=== PATIENT | male | born 1945 | race Caucasian/White ===

== ENCOUNTER 2019-06-08 13:39 | Emergency (ER) | payer OTHER ==
--- OUTSIDE RECORDS SUMMARY | 2019-06-08 13:42 | XMS REPORT | Summary of Care ---
:1945 Author Organization [facility] [place] [address] Care Team Providers Name Role Phone José Pugh Primary Care Provider Reason for Referral (Routine) Status Reason Specialty Diagnoses / Referred By Referred To Procedures Contact Contact Pending Consult, Test, Physical Therapy Diagnoses Tremor, essential Sincere Segundo, and Treat [address], [address] [place] [address] Reason for Visit Reason Comments Movement Disorder Consult, Test & Treat (Routine) Status Reason Specialty Diagnoses / Referred By Referred To Procedures Contact Contact Authorization Not Neurology Diagnoses Essential tremor R/S per 09/23/18 Bu List for Ghazala Granado Needed Procedures ID ELEC JOHN IMPLT BRN NPGT PRGRMG 1ST 15 MIN ID ELEC JOHN IMPLT BRN NPGT PRGRMG EA ADDL 15 MIN ID OFFICE OUTPATIENT VISIT 40 MINUTES DEEP BRAIN STIMULATION 30 Referring Not In , MD Elijah Encounter Details Date Type Department Care Team Description 09/27/2018 Office Visit [facility] Sincere Roberts MD Movement Disorder Medicine - Neurology [address], [address] [place] [address] 9th Floor, [address] [phone] [place] [phone] Allergies Active Allergy Reactions Severity Noted Date Comments Hydrocodone 09/17/2013 Burning in stom ach Iodine 09/17/2013 vomiting Shellfish-Derived Products Nausea And Vomiting 015 Tylenol-Codeine 11/11/2014 Tramadol 09/17/2013 itching documented as of this encounter (statuses as of 10/03/2018) Medications Medication Sig Dispensed Refills Start Date End Date Status lisinopril (PRINIVIL, Take by mouth 0 Active ZESTRIL) 20 MG tablet daily. 20 -25 mg Levothyroxine Sodium 112 Take by mouth 0 Active MCG CAPS daily. gabapentin (NEURONTIN) Take 600 mg by 0 Active 300 MG capsule mouth two times daily. aspirin EC 81 MG tablet Take 81 mg by 0 Active mouth daily. pramipexole (MIRAPEX) Take 0.75 mg by 0 Active 1.5 MG tablet mouth two times daily. documented as of this encounter (statuses as of 10/03/2018) Active Problems Problem Noted Date DEEP BRAIN STIMULATOR - BILAT VIM - MEDTRONIC 03/10/19 17 Dysarthria 03/10/2016 Tremor, essential 11/03/2013 Restless legs syndrome (RLS) 11/03/2013 documented as of this encounter (statuses as of 10/03/2018) Immunizations Name Administration Dates Next Due Influenza Hd 12/27/2017 documented as of this encounter Social History Tobacco Use Types Packs/Day Years Used Date Former Smoker 0.25 5 Smokeless Tobacco: Former User Chew Q uit: 08/17/1984 Alcohol Use Drinks/Week oz/Week Comments No Sex Assigned at Date Recorded Not on file Job Start Date Occupation Industry Not on file Not on file Not on file Travel History Travel Start Travel End No recent travel history available. documented as of this encounter Last Filed Vital Signs Vital Sign Reading Time Taken Comments Blood Pressure 148/84 09/27/2018 1:16 PM CDT Pulse 58 09/27/2018 1:16 PM CDT Temperature - - Respiratory Rate - - Oxygen Saturation - - Inhaled Oxygen Concentration - - Weight 89.4 kg (197 lb) 09/27/2018 1:16 PM CDT Height 185.4 cm (6' 1") 09/27/2018 1:16 PM CDT Body Mass Index 25.99 09/27/2018 1:16 PM CDT documented in this encounter Progress Notes Sincere Segundo MD - 09/27/2018 1:30 PM CDT Subjective: Patient is a 72 y.o. male with ET s/p bilateral VIM DBS here for follow up. He feels like his balance has worsened slightly over time. He feels like his voice might cut short when talking. Objective: aspirin EC 81 MG tablet Take 81 mg by mouth daily. gabapentin (NEURONTIN) 300 MG capsule Take 600 mg by mouth two times daily. Levothyroxine Sodium 112 MCG CAPS Take by mouth daily. lisinopril (PRINIVIL, ZESTRIL) 20 MG tablet Take by mouth daily. 20 -25 mg pramipexole (MIRAPEX) 1.5 MG tablet Take 0.75 mg by mouth two times daily. Vitals: 09/27/18 1316 BP: 148/84 BP Location: left arm Patient Position: Sitting Cuff Size: regular Pulse: 58 Weight: 197 lb (89.4 kg) Height: 6' 1" (1.854 m) Mental Status: Alert, fluent speech, normal comprehension. Hypokinetic dysarthric speech Motor: Strength 5/5 in all extremities. 1-2+ BK L>R. Involuntary Movements: Minimal postural and kinetic tremor. Coordination: Finger to nose and rapid alternating movements are normal. Gait: Good initiation with normal arm swing and stride length. Pull test is normal. DBS Programming: See scanned worksheet and printout for details. Briefly, tested with stimulator off without appreciable improvement in gait or speech. Assessment: Mr. David is a 72 y.o. with ET s/p VIM DBS with worsening balance issues. We discussed how ataxiaand balance problems can be seen with longstanding ET and how in his case, there did not appear to be a stimulator induced component. Plan: - physical therapy referral for gait and balance - no changes made to DBS - continue mirapex for RLS symptoms Sincere Segundo MD Coroner Forensic Technician of Neurology documented in this encounter Plan of Treatment Date Type Specialty Care Team Description 04/04/2019 Office Visit Neurology Sincere Segundo MD [address], [address] [place], [place] [address] [phone] Name Type Priority Associated Diagnoses Order S chedule AMB REF TO PT Outpatient Referral Routine Tremor, essential Or dered: EXTERNAL 09/27/2018 Health Maintenance Due Date Last Done Comments COLON CANCER SCREENING: COLONOSCOPY 1945 MEDICARE AWV 1945 TETANUS SHOT (ADULT) 12/15/1958 BMI FOLLOW UP PLAN 12/15/1961 AAA Screen 12/15/2008 FALL SCREEN 12/15/2008 PREVNAR >= 65 (PCV13) 12/15/2008 FLU VACCINE > 6 MONTHS 09/26/2018 12/27/2017, 03/21/2017 (Declined) PNEUMOVAX >=65 (PPSV23) Completed 01/04/2016 documented as of this encounter Results Not on filedocumented in this encounter Visit Diagnoses Diagnosis Tremor, essential - Primary Essential and other specified forms of t remor DEEP BRAIN STIMULATOR - BILAT VIM - MEDT RONIC Fitting and adjustment of neuropacemaker (brain) (peripheral nerve) (spinal cord) Dysarthria documented in this encounter Insurance Payer Benefit Plan Subscriber ID Effective Phone Address Typ e / Group Dates MEDICARE MEDICARE PART xxxxxxxxxxx 2013-Pres [address] Medicare A & B - [place] [id number] [place] [address] MUTUAL OF MEDIGAP - xxxxxxxx 2016-Prese [phone] [address] Medicare [place] [employer] OF nt [address] [place], [place] [id number] documented as of this encounter
--- OUTSIDE RECORDS SUMMARY | 2019-06-08 13:42 | XMS REPORT ---
:1945 Author Organization [facility] t Address [address] [place] [address] Dr. Hatch [address] [place] [address] Care Team Providers Name Role Phone Ina RUIZ Unavailable Unavailable Problems This patient has no known problems. Allergies, Adverse Reactions, Alerts This patient has no known allergies or adverse reactions. Medications This patient has no known medications. Results Test Description Test Time Test Comments Text Results Atomic Results Result Comments TISSUE EXAM 2019-02-28 08:16:00 Surgical Pathology Re port Case: [id number] Authorizing Provider: Ananda Ruiz MD Collected: 142 Ordering Location: [facility] PERI[facility] Received: 1436 SERVICE S Pathologist: Prateek Gardner MD Specimen: Explant, explan vinicio battery NEUROSURGICAL HARDWARE, MICHAEL JAYSON:DEEP BRAIN STIMULATOR BATTERY (GROSS EX AMINATION ONLY) Signing Pathologist Direct P rocco Line: [phone] s igned by Prateek Gardner MD on 02/28/2019 at 8:1 6 [id number] of battery life of deep brain s timulatorExplant Received fresh labeled with the patient's name, accession number and "explan vinicio battery" is a 6.3 x 4.8 x 1.3 cm, metallic, gr ay, rectangular piece of hardware that contains th e following inscription:"[employer]""ACTI VA PC""SN [id number]"A gross photograp h is taken. No sections are submitted. This case is for gross examination only. PA/ew
--- OUTSIDE RECORDS SUMMARY | 2019-06-08 13:42 | XMS REPORT | Summary of Care ---
:1945 Author Organization [facility] - Health Address [address] [place] [address] Care Team Providers Name Role Phone Taran Brock MD Primary Care Provider Taran Brock MD Unavailable Encounter Details Date Type Department Care Team Description 03/12/2019 Orders Only [facility] Doctor Unassigned, No [address] [facility] [place] [address] [address] [place] [address] Allergies Active Allergy Reactions Severity Noted Date Comments Propoxyphene Rash 12/15/2014 N-Acetaminophen Hydrocodone Other - See comments 12/15/2014 Iodine Nausea and/or Vomiting 12/15/2014 Sea f ood related Tramadol Hcl Rash 12/15/2014 documented as of this encounter (statuses as of 03/12/2019) Medications Medication Sig Dispensed Refills Start Date End Date Status pramipexole (MIRAPEX) 1 1 mg at bedtime. 0 5 Active mg tablet gabapentin (NEURONTIN) 300 mg. 0 11/19/2014 Active 300 mg capsule aspirin (ASPIRIN LOW Take 81 mg by 0 Active DOSE) 81 mg EC tablet mouth daily. lisinopril-hydrochloroth Take 1 tablet by 90 tablet 4 02/04/20 19 Active iazide 20-25 mg per mouth every tabletIndications: morning. Essential hypertension levothyroxine 112 mcg TAKE 1 TABLET BY 90 tablet 4 02/03/2019 Active tabletIndications: MOUTH EVERY Acquired hypothyroidism MORNING documented as of this encounter (statuses as of 03/12/2019) Active Problems Problem Noted Date Essential hypertension 12/15/2014 Acquired hypothyroidism 12/15/2014 Restless leg syndrome 12/15/2014 Peripheral neuropathic pain 12/15/2014 documented as of this encounter (statuses as of 03/12/2019) Immunizations Name Administration Dates Next Due Influenza High Dose 12/25/2018 Influenza Virus Vaccine 01/04/2016 Pneumococcal Polysaccharide, PPSV23 (PNEUMOVAX) 01/04/2016 documented as of this encounter Social History Tobacco Use Types Packs/Day Years Used Date Former Smoker Cigarettes 1 6 Quit: 12/15/18 73 Smokeless Tobacco: Never Used Alcohol Use Drinks/Week oz/Week Comments No 0 Standard drinks or equivalent 0.0 Sex Assigned at Date Recorded Not on file Job Start Date Occupation Industry Not on file Not on file Not on file Travel History Travel Start Travel End No recent travel history available. documented as of this encounter Last Filed Vital Signs Not on filedocumented in this encounter Plan of Treatment Date Type Specialty Care Team Description 02/04/2020 Office Visit Family Medicine Morris Brock MD [address] [place] [address] [phone] Health Maintenance Due Date Last Done Comments DTaP,Tdap,and Td Vaccines (1 - Tdap) 12/15/1954 COLONOSCOPY 12/15/1993 Zoster Recombinant Vaccine (SHINGRIX) 12/15/1993 (1 of 2) PNEUMOCOCCAL VACCINES 65+ (2 of 2 - 01/03/2017 01/04/2016 PCV13) Medicare Wellness Visit 02/01/2019 02/01/2018, 01/22/2017, 01/18/2016 INFLUENZA VACCINE Completed 12/25/2018, 12/27/2017, 01/04/2016 documented as of this encounter Procedures Procedure Name Priority Date/Time Associated Diagnosis Comme nts EXTERNAL PROVIDER Routine 03/12/2019 12:01 AM ELECTRICAL CONTACTS ADJUSTER RECORDS documented in this encounter Results Not on filedocumented in this encounter Insurance Payer Benefit Plan / Subscriber ID Effective Phone Address T ype Group Dates MEDICARE MEDICARE PART xxxxxxxxxxx 2008-Pre [phone] Medicare A & B sent [phone] [place] [id number] COMMERCIAL COMMERCIAL [id number] 2016-Pres HMO/ PPO/POS NON-CONTRACT NON-CONTRACT ent GENERIC GENERIC documented as of this encounter
--- OUTSIDE RECORDS SUMMARY | 2019-06-08 13:43 | XMS REPORT | Summary of Care ---
:1945 Author Organization [facility] [place] [address] Care Team Providers Name Role Phone José Pugh Primary Care Provider Reason for Visit Reason Comments Movement Disorder Consult, Test & Treat (Routine) Status Reason Specialty Diagnoses / Referred By Referred To Procedures Contact Contact Authorization Not Neurology Diagnoses Essential tremor Encounter for adjustment and management of neurostimulator Dysarthria and anarthria R/S per 09/23/[address] Ramires Referral, Self Vamsi Segundo n, Needed Procedures NV ELEC JOHN IMPLT BRN NPGT PRGRMG 1ST 15 MIN NV OFFICE OUTPATIENT VISIT 40 MINUTES NV ELEC JOHN IMPLT BRN NPGT PRGRMG EA ADDL 15 MIN DEEP BRAIN STIMULATION 30 [address], [address] [place] [phone] Encounter Details Date Type Department Care Team Description 04/04/2019 Office Visit [facility] Sincere Segundo MD Movement Disorder Medicine Neurology [address] [place] [id number] [facility] 9th Floor, [facility] [place] [address] 9th Floor, [address] [place] [id number] [place] [address] [phone] Allergies Active Allergy Reactions Severity Noted Date Comments Hydrocodone 09/17/2013 Burning in stom ach Iodine 09/17/2013 vomiting Shellfish-Derived Products Nausea And Vomiting 015 Tylenol-Codeine 11/11/2014 Tramadol 09/17/2013 itching documented as of this encounter (statuses as of 04/12/2019) Medications Medication Sig Dispensed Refills Start Date [...] as of this encounter (statuses as of 04/12/2019) Active Problems Problem Noted Date End of battery life of deep brain stimulator 9 DEEP BRAIN STIMULATOR - BILAT VIM - MEDTRONIC 03/10/19 17 Dysarthria 03/10/2016 Tremor, essential 11/03/2013 Restless legs syndrome (RLS) 11/03/2013 documented as of this encounter (statuses as of 04/12/2019) Immunizations Name Administration Dates Next Due Influenza [...] Sign Reading Time Taken Comments Blood Pressure 139/84 04/04/2019 1:17 PM CREDIT COLLECTION SPECIALIST Pulse 65 04/04/2019 1:17 PM CREDIT COLLECTION SPECIALIST Temperature - - Respiratory Rate - - Oxygen Saturation - - Inhaled Oxygen Concentration - - Weight 95.3 kg (210 lb) 04/04/2019 1:17 PM CREDIT COLLECTION SPECIALIST Height 185.4 cm (6' 1") 04/04/2019 1:17 PM CREDIT COLLECTION SPECIALIST Body Mass Index 27.71 04/04/2019 1:17 PM CREDIT COLLECTION SPECIALIST documented in this encounter Patient Instructions Patient InstructionsSincere Segundo MD - 04/04/2019 1:00 PM CSTI have increased your DBS frequency from 130Hz to 180Hz to help with the tremor. If you feel anything is worse on these settings, you can reduce the frequency back to 130Hz, if you have ongoing problems with tremor, you can increase to a maximum of 200Hz. IT COLLECTION SPECIALIST documented in this encounter Progress Notes Sincere Segundo MD - 04/04/2019 1:00 PM CST Subjective: Patient is a 73 y.o. male with ET s/p bilateral VIM DBS here for follow up. He did well with his IPG exchange in January. He has noticed more breakthrough tremor in certain positions (resting his head on his arm, or with pouring) since his last visit. He feels like his balance has been stable. He did rehab for this last year which he felt was very helpful. Objective: aspirin EC 81 MG tablet Take 81 mg by mouth daily. gabapentin (NEURONTIN) 300 MG capsule Take 600 mg by mouth two times daily. Levothyroxine Sodium 112 MCG CAPS Take by mouth daily. lisinopril (PRINIVIL, ZESTRIL) 20 MG tablet Take by mouth daily. 20 -25 mg pramipexole (MIRAPEX) 1.5 MG tablet Take 0.75 mg by mouth two times daily. Vitals: 04/04/19 1317 BP: 139/84 BP Location: left arm Patient Position: Sitting Cuff Size: regular Pulse: 65 Weight: 210 lb (95.3 kg) Height: 6' 1" (1.854 m) Mental Status: Alert, fluent speech, normal comprehension. Hypokinetic dysarthria Motor: Strength 5/5 in all extremities. Involuntary Movements: 1-2+ kinetic tremor, minimal postural tremor. 2+ isometric tremor on the left. Coordination: Finger to nose and rapid alternating movements are normal. Gait: Good initiation with normal arm swing and stride length. DBS Programming: See scanned worksheet and printout for details. Tremor reduction with increased frequency. Assessment: Mr. David is a 73 y.o. with ET s/p bilateral VIM DBS with good response to tremor reduction with frequency increase. There was no appreciable worsening of speech or balance. Plan: - consider repeat physical therapy if more concerns raised for balance - DBS adjustments as above; patient control on frequency (130-200 range, currently at 180Hz) Sincere Segundo MD Housekeeper of Neurology documented in this encounter Plan of Treatment Date Type Specialty Care Team Description 09/26/2019 Office Visit Neurology Sincere Segundo MD [address], [facility] [place] [address] [place], [place] [address] [phone] Health Maintenance Due Date Last Done Comments COLON CANCER SCREENING: COLONOSCOPY 1945 TETANUS SHOT (ADULT) 12/15/1958 BMI FOLLOW UP PLAN 12/15/1961 AAA Screen 12/15/2008 FALL SCREEN 12/15/2008 PNEUMOVAX >=65 (PPSV23) 12/15/2008 PREVNAR >= 65 (PCV13) 12/15/2008 MEDICARE AWV (Initial) 08/15/2013 FLU VACCINE > 6 MONTHS 09/26/2018 12/27/2017, 03/21/2017 (Declined) documented as of this encounter Results Not on filedocumented in this encounter Visit Diagnoses Diagnosis DEEP BRAIN STIMULATOR - BILAT VIM - MEDT RONIC - Primary Fitting and adjustment of neuropacemaker (brain) (peripheral nerve) (spinal cord) Tremor, essential Essential and other specified forms of t remor documented in this encounter Insurance Payer Benefit Plan Subscriber ID Effective Phone Address Typ e / Group Dates [employer]UAL OF MEDIGAP - xxxxxxxx 2016-Prese [phone] [address] Medicare [place] MUTUAL OF nt [address] [place], [place] [address] MEDICARE MEDICARE PART xxxxxxxxxxx 2013-Pres [address] Medicare A & B - ent [id number] [place] [address] documented as of this encounter
[2019-06-08 14:39] LABS: Absolute Lymphocytes (CBC) 1.2 K/uL (0.7-4.9); Basophils % 0.7 % (0-1.3); Hematocrit 44.6 % (39.6-49.0); MPV 7.2 fL (7.6-11.3); RBC Red Blood Cell Count 4.88 M/uL (4.33-5.43)
[2019-06-08 14:45] LABS: Protime INR 0.95
--- NOTE | 2019-06-08 14:48 | RAD REPORT ---
EXAM DESCRIPTION: Court Single View06/08/2019 2:37 pm CLINICAL HISTORY: cough COMPARISON: 2014 FINDINGS: Left base is hazy. Right lung appears clear. Neurostimulator device noted The heart is normal size IMPRESSION: Left base is hazy perhaps secondary to prominent epicardial fat. If straight has a simil ar appearance. PA and lateral chest series recommended
[2019-06-08 14:58] LABS: ALT/SGPT 44 U/L (12-78); AST/SGOT 30 U/L (15-37); Albumin 3.7 g/dL (3.4-5.0); Alkaline Phosphatase 86 U/L (45-117); BUN Blood Urea Nitrogen 16 mg/dL (7-18); Bicarbonate 30 mmol/L (21-32); Bilirubin Direct 0.1 mg/dL (0-0.2); Bilirubin Total 0.4 mg/dL (0.2-1.0); Glucose Level 112 mg/dL (74-106); Magnesium 2.2 mg/dL (1.8-2.4); NT PRO-BNP 67 pg/mL (<450); Potassium 3.4 mmol/L (3.5-5.1); Protein, Total 7.3 g/dL (6.4-8.2); Sodium Level 142 mmol/L (136-145); Troponin (Emerg Dept Use Only) < 0.02 ng/mL (0.0-0.045)
--- NOTE | 2019-06-08 15:29 | RAD REPORT ---
EXAM DESCRIPTION: Court Phillips And Lat (2 Views)06/08/2019 3:13 pm CLINICAL HISTORY: Cough COMPARISON: June 08, 2019 chest x-ray FINDINGS: The left base appears normal. The lungs appear clear of acute infiltrate. The heart is no rmal size IMPRESSION: No acute abnormalities displayed
--- NOTE | 2019-06-08 15:53 | ER ---
Nurse's Notes [facility] Name: Lance David Age: 73 yrs Sex: Male : 1945 Arrival Date: 06/08/2019 Time: 13:42 Bed 27 Private MD: Morris Brock Diagnosis: Acute upper respiratory infection, unspecified Presentation: 06/07 13:47 Chief complaint: Patient states: Reports cough with slight SOB for 6 days. No known ll1 fever. Coronavirus screen: Surgical mask placed on patient. Patient moved to private room, placed in contact and droplet isolation with eye protection until further assessment. Patient reports a cough. Patient reports shortness of breath or difficulty breathing. Patient denies measured and/or subjective temperature greater than 100.4F prior to today's visit. Patient denies travel on a cruise ship or to a country the [facility] currently lists as an affected area. Patient denies contact with known and/or suspected case of COVID-19. Ebola Screen: Patient denies travel to an Ebola-affected area in the 21 days before illness onset. Initial Sepsis Screen: Does the patient meet any 2 criteria? No. Patient's initial sepsis screen is negative. Risk Assessment: Do you want to hurt yourself or someone else? Patient reports no desire to harm self or others. Onset of symptoms was June 01, 2019. 13:47 Method Of Arrival: Ambulatory ll1 13:47 Acuity: RUTHIE 3 ll1 Triage Assessment: 13:50 General: Appears in no apparent distress. comfortable, Behavior is cooperative, bp appropriate for age, anxious. General: PT STATES HE IS PRESENTING TO ER FOR COVID TEST. Pain: Denies pain. EENT: No deficits noted. Neuro: No deficits noted. Cardiovascular: No deficits noted. Respiratory: Reports cough that is Onset: The symptoms/episode began/occurred 6 DAYS AGO, the patient has mild shortness of breath. GI: No signs and/or symptoms were reported involving the gastrointestinal system. : No signs and/or symptoms were reported regarding the genitourinary system. Derm: No deficits noted. Musculoskeletal: No deficits noted. Historical: - Allergies: 13:49 hydrocodone bitartrate (bulk); ll1 13:49 propoxyphene napsylate; ll1 13:49 Codeine; ll1 13:50 Tramadol HCl; ll1 13:50 Iodine; ll1 13:50 ACETAMINOPHEN; ll1 - PMHx: 13:52 essential tremors; Hypothyroidism; Hypertension; ll1 - PSHx: 13:50 Reconstructive surgery to left shoulder; left shoulder with screws; neurostimulator ll1 implanted in chest; brain; - Immunization history:: Adult Immunizations unknown. - Social history:: Smoking status: Patient denies any tobacco usage or history of. Patient/guardian denies using alcohol, street drugs, tobacco products. Screenin:27 Abuse screen: Denies threats or abuse. Denies injuries from another. Nutritional bp screening: No deficits noted. Tuberculosis screening: No symptoms or risk factors identified. Fall Risk None identified. Assessment: 13:50 General: SEE TRIAGE NOTE. Cardiovascular: Rhythm is sinus rhythm. Respiratory: Airway bp is patent Respiratory effort is even, unlabored, Breath sounds are coarse bilaterally. 15:21 Reassessment: PT RETURNED FROM XRAY. ALL CURRENT ORDERS COMPLETED, RESULTS PENDING FOR bp DISPO. 16:11 Reassessment: PT D/C HOME AMBULATORY WITH FAMILY, DX WITH VIRAL URI. bp Vital Signs: 13:47 BP 143 / 92; Pulse 84; Resp 18; Temp 98.3; Pulse Ox 96% ; Pain 0/10; ll1 14:30 BP 130 / 81; Pulse 79; Pulse Ox 91% on R/A; vc 15:20 BP 127 / 83; Pulse 73; Resp 16; Pulse Ox 92% on R/A; bp 16:11 BP 119 / 78; Pulse 66; Resp 17; Temp 98.5; Pulse Ox 94% ; bp ED Course: 13:42 Patient arrived in ED. mr 13:42 Morris Brock MD is Private Physician. mr 13:47 Shelia Osborne FNP-C is [facility]. kb 13:47 Leisa Workman MD is Attending Physician. kb 13:48 Triage completed. ll1 13:49 Dinh Mercado, BRADLEY is Primary Nurse. bp 13:50 Arm band placed on Patient placed in an exam room, on a stretcher. ll1 14:20 Inserted saline lock: 22 gauge in right forearm, using aseptic technique. Blood bp collected. 14:27 Patient has correct armband on for positive identification. Bed in low position. Call bp light in reach. Side rails up X2. 14:38 XRAY Chest (1 view) In Process Unspecified. EDMS 15:13 Chest Pa And Lat (2 Views) XRAY In Process Unspecified. EDMS 16:11 No provider procedures requiring assistance completed. IV discontinued, intact, bp bleeding controlled, No redness/swelling at site. Pressure dressing applied. Administered Medications: No medications were administered Outcome: 15:53 Discharge ordered by . rommel 16:11 Discharged to home ambulatory. bp 16:11 Condition: stable 16:11 Discharge instructions given to patient, Instructed on discharge instructions, follow up and referral plans. Demonstrated understanding of instructions, follow-up care. 16:14 Patient left the ED. bp Signatures: Dispatcher [employer] EDMS Shelia Osborne, LABORATORY COORDINATOR-C LABORATORY COORDINATOR-Rebeca Payne Brian, RN RN bp Shanice Cassidy RN RN Rg Masters RN RN ll1
--- NOTE | 2019-06-08 15:54 | EDPHYS ---
Physician Documentation [facility] Name: Lance David Age: 73 yrs Sex: Male : 1945 Arrival Date: 06/08/2019 Time: 13:42 Bed 27 Private MD: Morris Brock ED Physician Leisa Workman HPI: 06/07 15:03 This 73 yrs old Male presents to ER via Ambulatory with complaints of Cough, kb Breathing Difficulty. 15:05 The patient or guardian reports cough, that is intermittent, described as mild, with no kb sputum. Onset: The symptoms/episode began/occurred 6 day(s) ago. Severity of symptoms: At their worst the symptoms were moderate, in the emergency department the symptoms have improved, mildly. Modifying factors: The symptoms are alleviated by nothing, the symptoms are aggravated by nothing. Associated signs and symptoms: The patient has no apparent associated signs or symptoms, Pertinent negatives: chest pain, fever. The patient has not experienced similar symptoms in the past. The patient has not recently seen a physician. Pt reports cough, shortness of breath, bodyaches and weakness for 6 days. Denies fever. States he has had to use his 's oxygen a few times and has used her breathing treatments. . Historical: - Allergies: 13:49 hydrocodone bitartrate (bulk); ll1 13:49 propoxyphene napsylate; ll1 13:49 Codeine; ll1 13:50 Tramadol HCl; ll1 13:50 Iodine; ll1 13:50 ACETAMINOPHEN; ll1 - PMHx: 13:52 essential tremors; Hypothyroidism; Hypertension; ll1 - PSHx: 13:50 Reconstructive surgery to left shoulder; left shoulder with screws; neurostimulator ll1 implanted in chest; brain; - Immunization history:: Adult Immunizations unknown. - Social history:: Smoking status: Patient denies any tobacco usage or history of. Patient/guardian denies using alcohol, street drugs, tobacco products. ROS: 14:57 Constitutional: Negative for fever, chills, and weight loss, ENT: Negative for injury, kb pain, and discharge, Neck: Negative for injury, pain, and swelling, Cardiovascular: Negative for chest pain, palpitations, and edema, Abdomen/GI: Negative for abdominal pain, nausea, vomiting, diarrhea, and constipation, Back: Negative for injury and pain, MS/Extremity: Negative for injury and deformity, Skin: Negative for injury, rash, and discoloration. 14:57 Respiratory: Positive for cough, shortness of breath, Negative for dyspnea on exertion, hemoptysis, orthopnea, pleurisy, sputum production, wheezing. 14:57 Neuro: Positive for weakness. Exam: 14:57 Constitutional: This is a well developed, well nourished patient who is awake, alert, kb and in no acute distress. Head/Face: Normocephalic, atraumatic. ENT: Nares patent. No nasal discharge, no septal abnormalities noted. Tympanic membranes are normal and external auditory canals are clear. Oropharynx with no redness, swelling, or masses, exudates, or evidence of obstruction, uvula midline. Mucous membranes moist. Neck: Trachea midline, no thyromegaly or masses palpated, and no cervical lymphadenopathy. Supple, full range of motion without nuchal rigidity, or vertebral point tenderness. No Meningismus. Chest/axilla: Normal chest wall appearance and motion. Nontender with no deformity. No lesions are appreciated. Cardiovascular: Regular rate and rhythm with a normal S1 and S2. No gallops, murmurs, or rubs. Normal PMI, no JVD. No pulse deficits. Abdomen/GI: Soft, non-tender, with normal bowel sounds. No distension or tympany. No guarding or rebound. No evidence of tenderness throughout. Skin: Warm, dry with normal turgor. Normal color with no rashes, no lesions, and no evidence of cellulitis. MS/ Extremity: Pulses equal, no cyanosis. Neurovascular intact. Full, normal range of motion. Neuro: Awake and alert, GCS 15, oriented to person, place, time, and situation. Cranial nerves II-XII grossly intact. Motor strength 5/5 in all extremities. Sensory grossly intact. Cerebellar exam normal. Normal gait. 14:57 Respiratory: the patient does not display signs of respiratory distress, Respirations: normal, Breath sounds: wheezing: expiratory that is mild. Vital Signs: 13:47 BP 143 / 92; Pulse 84; Resp 18; Temp 98.3; Pulse Ox 96% ; Pain 0/10; ll1 14:30 BP 130 / 81; Pulse 79; Pulse Ox 91% on R/A; vc 15:20 BP 127 / 83; Pulse 73; Resp 16; Pulse Ox 92% on R/A; bp 16:11 BP 119 / 78; Pulse 66; Resp 17; Temp 98.5; Pulse Ox 94% ; bp MDM: 13:47 Patient medically screened. kb 14:55 Data reviewed: vital signs, nurses notes. Data interpreted: Pulse oximetry: on room air kb is 91 %. Interpretation: normal. 15:49 Data reviewed: lab test result(s), radiologic studies, I have discussed the patient's kb presentation/case with the attending Emergency Department Physician;. Counseling: I had a detailed discussion with the patient and/or guardian regarding: the historical points, exam findings, and any diagnostic results supporting the discharge/admit diagnosis, lab results, radiology results, the need for outpatient follow up, a family practitioner, to return to the emergency department if symptoms worsen or persist or if there are any questions or concerns that arise at home. ED course: Pt reports he came to get tested for COVID. Educated to call the COVID hotline to inquire about getting tested. Pt's oxygen sat 95% on room air, lungs clear and in no distress. Will discharge home to follow up with PCP. PT will return if symptoms worsen.. 06/07 13:53 Order name: Basic Metabolic Panel; Complete Time: 14:59 kb 06/07 13:53 Order name: CBC with Diff; Complete Time: 14:43 kb 06/07 13:53 Order name: LFT's; Complete Time: 14:59 kb 06/07 13:53 Order name: Magnesium; Complete Time: 14:59 kb 06/07 13:53 Order name: NT PRO-BNP; Complete Time: 14:59 kb 06/07 13:53 Order name: PT-INR; Complete Time: 14:47 kb 06/07 13:53 Order name: Troponin (emerg Dept Use Only); Complete Time: 14:59 kb 06/07 13:53 Order name: XRAY Chest (1 view); Complete Time: 14:50 kb 06/07 13:53 Order name: Cardiac monitoring; Complete Time: 14:29 kb 06/07 13:53 Order name: Strep; Complete Time: 14:47 kb 06/07 13:53 Order name: Flu; Complete Time: 15:02 kb 06/07 14:48 Order name: Throat Culture EDMS 06/07 14:50 Order name: Chest Pa And Lat (2 Views) XRAY; Complete Time: 15:41 kb 06/07 13:53 Order name: EKG - Nurse/Tech; Complete Time: 14:29 kb 06/07 13:53 Order name: IV Saline Lock; Complete Time: 14:28 kb 06/07 13:53 Order name: Labs collected and sent; Complete Time: 14:28 kb 06/07 13:53 Order name: O2 Per Protocol; Complete Time: 13:58 kb 06/07 13:53 Order name: O2 Sat Monitoring; Complete Time: 13:58 kb Administered Medications: No medications were administered Disposition: 17:23 Co-signature as Attending Physician, Leisa Workman MD. ma2 Disposition: 06/08/19 15:53 Discharged to Home. Impression: Acute upper respiratory infection, unspecified. - Condition is Stable. - Discharge Instructions: Upper Respiratory Infection, Adult, [id number]-qt-[id number], Viral Respiratory Infection, [id number]-[id number]. - Medication Reconciliation Form, Thank You Letter, Antibiotic Education, Prescription Opioid Use form. - Follow up: Emergency Department; When: As needed; Reason: Worsening of condition. Follow up: Private Physician; When: 2 - 3 days; Reason: Recheck today's complaints, Continuance of care, Re-evaluation by your physician. Signatures: Dispatcher [employer] [facility] Shelia Osborne, CARDIAC/VASCULAR SONOGRAPHER-C CARDIAC/VASCULAR SONOGRAPHER-Dinh Guthrie, RN RN Leisa Westfall MD MD ma2 Rg Burnham RN RN ll1 Corrections: (The following items were deleted from the chart) 15:53 15:53 06/08/2019 15:53 Discharged to Home. Impression: Cough. Condition is Stable. kb Forms are Medication Reconciliation Form, Thank You Letter, Antibiotic Education, Prescription Opioid Use. Follow up: Emergency Department; When: As needed; Reason: Worsening of condition. Follow up: Private Physician; When: 2 - 3 days; Reason: Recheck today's complaints, Continuance of care, Re-evaluation by your physician. kb 16:14 15:53 06/08/2019 15:53 Discharged to Home. Impression: Acute upper respiratory bp infection, unspecified. Condition is Stable. Forms are Medication Reconciliation Form, Thank You Letter, Antibiotic Education, Prescription Opioid Use. Follow up: Emergency Department; When: As needed; Reason: Worsening of condition. Follow up: Private Physician; When: 2 - 3 days; Reason: Recheck today's complaints, Continuance of care, Re-evaluation by your physician. kb
[2019-06-08 16:25] VITALS: BP 119/78; TEMP 98.5; O2SAT 94
== END 2019-06-08 16:14 | disposition home or self-care (01) ==
LOC: ER 13:39
DX: J06.9 Acute upper respiratory infection, unspecified (principal); G25.0 Essential tremor; Z96.82 Presence of neurostimulator
CPT/HCPCS: 36415; 71045; 71046; 80048; 80076; 83735; 83880; 84484; 85025; 85610; 87070; 87081; 87804; 99284

== ENCOUNTER 2019-07-18 14:28 | Emergency (ER) | payer OTHER ==
--- OUTSIDE RECORDS SUMMARY | 2019-07-18 14:47 | XMS REPORT | Clinical Summary ---
:1945 Author Organization [facility] Address [address] [place] [address] Care Team Providers Name Role Phone Taran Brock MD Primary Care Provider Unavailable Allergies Active Allergy Reactions Severity Noted Date Comments Propoxyphene N-Acetaminophen Itching 10/06/2014 Hydrocodone-Acetaminophen Other (See Comments) 015 Stomach burning Iodine And Iodide Containing Nausea And Vomiting 10/06 Products Shellfish Containing Nausea And Vomiting 10/06/2014 Products Acetaminophen-Codeine Nausea And Vomiting Medium 10/16/2014 Tramadol-Acetaminophen Itching 10/06/2014 Tramadol Itching 10/06/2014 Medications Medication Sig Dispensed Refills Start Date End Date Status levothyroxine Take 112 mcg 0 Act nomi (SYNTHROID, LEVOTHROID) by mouth 112 MCG tablet daily. gabapentin (NEURONTIN) Take 600 mg 0 Active 300 MG capsule by mouth 2 (two) times daily 2 tabs. pramipexole (MIRAPEX) Take 0.125 0 Active 0.125 MG tablet mg by mouth nightly . lisinopril-hydroCHLOROth Take 1 0 Active iazide tablet by (PRINZIDE,ZESTORETIC) mouth daily. 20-25 mg per tablet lisinopril Take 20 mg 0 02/19/20 Disconti nued (PRINIVIL,ZESTRIL) 20 MG by mouth 19 tablet daily. hydrochlorothiazide Take 25 mg 0 02/19/20 Discontinued (HYDRODIURIL) 25 MG by mouth 19 tablet daily. aspirin 81 MG EC tablet Take 81 mg 0 02/24 Discontinued by mouth 19 daily. Active Problems Problem Noted Date End of battery life of deep brain stimulator 9 Essential and other specified forms of tremor 10/08/19 15 Essential tremor 10/07/2014 Encounters Date Type Specialty Care Team Description 02/24/2019 Anesthesia Event Molly Stone, BELL ATTENDANT 02/24/2019 Surgery Ananda Bean,DE CARLENE Crum MD BRAIN STIMULATO R 02/24/2019 Hospital Encounter Ananda Bean End of b attery life of deep brain stimulator (Primary Dx); MD Radames Pre-op testing 02/18/2019 Hospital Encounter Pre-Admission Testing 02/18/2019 Orders Only Neurosurgery Ananda Bean Pre-op testing MD Radames (Primary Dx) after 07/17/2018 Social History Tobacco Use Types Packs/Day Years Used Date Former Smoker Smokeless Tobacco: Never Used Comments: quit smoking 25 yrs ago Alcohol Use Drinks/Week oz/Week Comments No Sex Assigned at Date Recorded Not on file Job Start Date Occupation Industry Not on file Not on file Not on file Travel History Travel Start Travel End No recent travel history available. Last Filed Vital Signs Vital Sign Reading Time Taken Blood Pressure 147/72 02/24/2019 4:14 PM PROCESS CONTROLLER Pulse 71 02/24/2019 4:14 PM PROCESS CONTROLLER Temperature 36.6 C (97.9 F) 02/24/2019 4:14 PM PROCESS CONTROLLER Respiratory Rate 18 02/24/2019 4:14 PM PROCESS CONTROLLER Oxygen Saturation 96% 02/24/2019 4:14 PM PROCESS CONTROLLER Inhaled Oxygen Concentration - - Weight 92.9 kg (204 lb 12.9 oz) 02/24/2019 9:0 4 AM PROCESS CONTROLLER Height 185.4 cm (6' 0.99") 02/24/2019 9:04 AM PROCESS CONTROLLER Body Mass Index 27.03 02/24/2019 9:04 AM PROCESS CONTROLLER Plan of Treatment Not on file Implants Implanted Type Area Claim Manager Device Shelf Model / Identifier Expiration Serial / Date Lot Sealant,Floseal Hemostatic Matrix 10ml - [id number] Cement/Fill N/A: [employer] 11/26/2015 [id number] / Implanted: Qty: 1 on 10/07/2014 by William Lundy MD er/Ad hesive Head FORMER FUSION / MEDICAL [id number] Stimulator Neuro Activa Pc 11604 - [id number] IMPLANTS L eft: MEDTRONIC:NEUROMOD 10/24/2019 [id number] / Implanted: Qty: 1 on 02/24/2019 by Ananda Bean MD Ch est ULATION [id number] / Lead,Dbs Stimloc [id number] - [id number] Neuro N/A: MEDTRONI C 09/17/2018 [id number] / Implanted: Qty: 1 on 10/07/2014 by William Lundy MD Head NEUROMODULATION / [id number] Lead,Dbs Stimloc [id number] - [id number] Neuro N/A: MEDTRONI C 09/21/2018 [id number] / Implanted: Qty: 1 on 10/07/2014 by William Lundy MD Head NEUROMODULATION / [id number] Extension,Lead Dbs 60cm - [id number] Neuro Left: [employer] 09/23/2018 [id number] / Implanted: Qty: 1 on 10/16/2014 by William Lundy MD Head NEUROMODULATION [id number] / Extension,Lead Dbs 60cm - [id number] Neuro Left: [employer] 09/22/2018 [id number] / Implanted: Qty: 1 on 10/16/2014 by William Lundy MD Head NEUROMODULATION / [id number] Neurostimulator,Activa Rc Bilateral 39cc - [id number] Neuro Left: MEDTRONIC [id number] / Implanted: Qty: 1 on 10/16/2014 by William Lundy MD Head NEUROMODULATION [id number] / Science Professor,Patient Activa Rd/Pd - [id number] Pain MEDT RON [id number] / Implanted: Qty: 1 on 10/16/2014 Mgmt/Stimul NEUROMODULATION [id number] / ator Procedures Procedure Name Priority Date/Time Associated Comments Diagnosis RHYTHM STRIP - SCAN 03/03/2019 11:21 AM PROCESS CONTROLLER TRANSFUSION SERVICE 02/25/2019 5:53 REPORT - SCAN PM PROCESS CONTROLLER TISSUE EXAM AP Routine 02/24/2019 2:25 Results for this PM PROCESS CONTROLLER procedure are i n the results section. REPLACEMENT,DEEP 02/24/2019 1:15 End of battery life BRAIN STIMULATOR PM PROCESS CONTROLLER of deep brain stimulator Case Notes 60 MINS PER MIMA Special Needs Req: 1430 (C-ARM, MED[employer]IC) TYPE AND SCREEN, Routine 02/24/2019 9:46 AM Pre-op testing Re sults for this AUTOMATED PROCESS CONTROLLER procedure are i n the results section . after 07/17/2018 Results RHYTHM STRIP - SCAN (03/03/2019 11:21 AM PROCESS CONTROLLER) Narrative Performed At This result has an attachment that is no t available. TRANSFUSION SERVICE REPORT - SCAN (02/25/2019 5:53 PM PROCESS CONTROLLER) Narrative Performed At This result has an attachment that is no t available. Tissue Exam (02/24/2019 2:25 PM PROCESS CONTROLLER) Case Report Surgical Pathology Report Case: [id number] [facility] Authorizing Provider:Ananda Elliott MD Collected: 02/24/2019 [facility] Ordering Location: [facility] PERIOPER[facility] Received:02/24/2019 1439 SERVICES Pathologist: Prateek Gardner MD Specimen:Explant, ex planted battery DIAGNOSIS NEUROSURGICAL HARDWARE, REMOVAL: [facility] DEEP BRAIN STIMULATOR BATTERY (GROSS EXAMINATION ONLY) MEDICAL CENTER Signing Pathologist Direct Phone Line: CPT Code(s) 36204 [facility] CLINICAL HISTORY End of battery life of deep [facility] brain stimulator [facility] SPECIMEN SOURCE Explant [facility] GROSS DESCRIPTION Received fresh labeled with the patient's name, accession number and "explanted battery" is a 6.3 x 4.8 x 1.3 cm, metallic, garcia, rectangular piece of hardware that contains the following inscription: [facility] "Medtronic" "ACTIVA PC" "SN [id number]" A gross photograph is taken. No sections are submitted. This case is for gross examination only. PA/ew Specimen Tissue - Explant Performing Organization Address City/State/Zipcode Phone Number [facility] MEDICAL [address] [place] [address] CENTER Type and screen, automated (02/24/2019 9:46 AM PROCESS CONTROLLER) ABO/RH AUTOMATED (BEAKER) A POSITIVE [facility] Ab Scrn NEGATIVE [facility] Specimen Blood Performing Organization Address City/State/Zipcode Phone Number [facility] [address] [place] [address] after 07/17/2018 Insurance Payer Benefit Plan / Group Subscriber ID Type Phone A ddress MEDICARE MEDICARE A B xxxxxxxxxxx Medicare MCR SUPPLEMENT/INDIVIDUAL [employer] xxxxxxxx Medigap MCR SUPPLEMENT/INDIVIDUAL AARP/[facility] xxxxxxxxxxx Medigap Advance Directives For more information, please contact:HARLEEN [facility] [place], [place] [phone] Code Status Date Activated Date Inactivated Comments Full Code 02/24/2019 9:12 AM 02/24/2019 8:54 PM This code status was determined by: Patient Full Code 10/07/2014 4:16 PM 10/08/2014 3:57 PM This code status was determined by: Patient Full Code 10/07/2014 6:13 AM 10/07/2014 4:16 PM This code status was determined by: Patient
--- OUTSIDE RECORDS SUMMARY | 2019-07-18 14:47 | XMS REPORT ---
:1945 Author Organization [facility] t Address [address] [place] [address] Care Team Providers Name Role Phone Doctor Unassigned, Name Attending Clinician Unavailable [facility] Attending Clinician Unavailable Taran Brock MD Attending Clinician Sanya TAVARES Attending Clinician Ina RUIZ Attending Clinician Unavailable Ina RUIZ Admitting Clinician Unavailable Problems This patient has no known problems. Allergies, Adverse Reactions, Alerts This patient has no known allergies or adverse reactions. Medications This patient has no known medications. Procedures This patient has no known procedures. Encounters Start End Encounter Admission Attending Care Care Encounter Source Date/Time Date/Time Type Type Clinicians Facility Department ID 2019-06-11 2019-06-11 Orders Doctor OLEARY [id number] 00:00:00 00:00:00 Only Unassigned, CELIA [id number] [place] [facility] 4.2.7.2.686 [id number] 2019-06-09 2019-06-09 Telephone Shira, [facility] [id number] 00:00:00 00:00:00 [facility] [id number] [place] 4.2.7.2.686 [place] [id number] [address] 2019-06-09 2019-06-09 Telephone ELMA Brock [id number] 00:00:00 00:00:00 Morris Castillo [id number] Taran Matias 4.2.7.2.686 [place] [id number] [address] 2019-04-04 2019-04-04 Office TUYET Segundo [id number] 12:11:26 16:57:11 Visit Sincere AMBULATOR 350.1.13.21 Y 0.2.7.2.686 [id number] 2019-03-12 2019-03-12 Orders Doctor MAMTA [id number] 00:00:00 00:00:00 Only Unassigned, CELIA [id number] [place] [facility] 4.2.7.2.686 [id number] [facility] 2018-09-27 2018-09-27 Office TUYET Segundo [id number] 12:23:17 14:20:15 Visit Snicere AMBULATOR 350.1.13.21 Y 0.2.7.2.686 [id number] Results Test Description Test Time Test Comments Results Result Sourc e Comments TISSUE EXAM 2019-02-28 Surgical Pathology 08:16:00 Report Case: [id number] Authorizing Provider: Ananda Ruiz MD Collected: 02/24/2019 1425 Ordering Location: [facility] PERIOPERATIVE Received: 02/24/2019 1439 SERVICES Pathologist: Prateek Gardner MD Specimen: Explant, explanted battery NEUROSURGICAL HARDWARE, REMOVAL:DEEP BRAIN STIMULATOR BATTERY (GROSS EXAMINATION ONLY) Signing Pathologist Direct Phone Line: [phone] lly signed by Prateek Gardner MD on 02/28/2019 at 8:16 [id number] of battery life of deep brain stimulatorExplant Received fresh labeled with the patient's name, accession number and "explanted battery" is a 6.3 x 4.8 x 1.3 cm, metallic, garcia, rectangular piece of hardware that contains the following inscription:"Medtronic" "ACTIVA PC""SN [id number]"A gross photograph is taken. No sections are submitted. This case is for gross examination only. PA/ew
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
[2019-07-18 18:07] VITALS: BP 136/77; TEMP 97.8; O2SAT 99
== END 2019-07-18 17:56 | disposition left against medical advice (07) ==
LOC: ER 14:28
DX: S13.4XXA Sprain of ligaments of cervical spine, initial encounter (principal); V43.52XA Car driver injured in collision with other type car in traffic accident, initial encounter; I10 Essential (primary) hypertension; Z88.5 Allergy status to narcotic agent; Z88.6 Allergy status to analgesic agent; Z91.048 Other nonmedicinal substance allergy status
CPT/HCPCS: 70450; 71046; 72125; 99284

== ENCOUNTER 2022-03-31 00:37 | Emergency (ER) | payer OTHER ==
--- OUTSIDE RECORDS SUMMARY | 2022-03-31 00:42 | XMS REPORT | Continuity of Care Document ---
:1945 Author Organization [facility] t Address [address] [place] [address] Dr. [address]. [address] [place] [address] Care Team Providers Name Role Phone Brendan Pantoja MD Primary Care Physician [phone] BRENDAN PANTOJA Attending Clinician Unavailable Doctor Unassigned, [place] Attending Clinician Unavailable Lab, Ang - Db Attending Clinician Unavailable Brendan Pantoja MD Attending Clinician Vaccine, Bert Db Cbc Fam Attending Clinician Unavailable JOSEPH FLORES Attending Clinician Unavailable Vaccine, [facility] Family [facility] Attending Clinician Unavailable Joseph Flores DO Attending Clinician Nurse, Prosper Pob Immunization Attending Clinician Unavailable GRANT COCHRAN Attending Clinician Unavailable Pob1, Acute Care [facility] Attending Clinician Unavailable Sanya TAVARES, Sincere Attending Clinician JAMIE RUIZ Attending Clinician Unavailable CRISTOFER KIMBLE Attending Clinician Unavailable JAMIE RUIZ Admitting Clinician Unavailable BRENDAN PANTOJA Admitting Clinician Unavailable Payers Payer Name Policy Type Policy Number Effective Date Expiration Date S [facility] MEDICARE PART A \\T\\ [id number] 2008 B 00:00:00 JACK GHASSAN MELO [id number] 2020 00:00:00 COMMERCIAL [id number] 2016 NON-CONTRACT 00:00:00 GENERIC Problems Condition Condition Condition Status Onset Resolution Last Treating Co mments Source Name Details Category Date Date Treatment Clinician Date End of End of Disease Active 2018-[address] [facility] battery battery 2-30 [facility] life of life of 00:00: Medical deep brain deep brain 00 Ce nter stimulator stimulator End of End of Disease Active 2018-02 [facility] battery battery 2-23 College life of life of 00:00: of deep brain deep brain 00 Me dicin stimulator stimulator e DEEP BRAIN DEEP BRAIN Disease Active [facility] STIMULATOR STIMULATOR -13 Co llege - BILAT - BILAT 00:00: of VIM - VIM - 00 Medicin MEDTRONIC MEDTRONIC e Dysarthria Dysarthria Disease Active [facility] 1-13 College 00:00: of 00 Medicin e Essential Essential Disease Active 2014-02 Uni vers hypertensi hypertensi 0-20 it y of on on 00:00: [place] [facility] Acquired Acquired Disease Active 2014-02 Unive rs hypothyroi hypothyroi 0-20 it y of dism dism 00:00: [place] [facility] Branch 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 0-20 ity of syndrome syndrome 00:00: [address] Branch Peripheral Peripheral Disease Recurre 2014-02 Univers neuropathi neuropathi nce 0-20 it y of c pain c pain 00:00: [place] [facility] Branch Essential Essential Disease Active [facility] and other and other 8-12 Luke s specified specified 00:00: [facility] kristina forms of forms of 00 Center tremor tremor Essential Essential Disease Active [facility] tremor tremor 8-12 [facility] 00:00: [facility] 00 Center Tremor, Tremor, Disease Active [facility] essential essential 11-03 Salvatore ege 00:00: of 00 Medicin e Restless Restless Disease Active [facility] [facility] legs legs 11-03 [place] syndrome syndrome 00:00: of (RLS) (RLS) 00 Medicin e Allergies, Adverse Reactions, Alerts Allergy Allergy Status Severity Reaction(s) Onset Inactive Treating Comm ents Source Name Type Date Date Clinician PROPOXYP DRUG Active Med Rash 2014-02 Univers HENE 0-20 ity of N-ACETAM 00:00: [place] INOPHEN 00 [facility] HYDROCOD DRUG Active Med Other-Cmnt 2014-02 Univ ers ONE INGREDI 0-20 ity of 00:00: [place] [facility] Branch IODINE DRUG Active Med N/V 2014-02 Univers INGREDI 0-20 ity of 00:00: [place] 00 Medical Branch TRAMADOL DRUG Active Med Rash 2014-02 Univers HCL INGREDI 0-20 ity of 00:00: [place] 00 Medical Branch Propoxyp Propensi Active Rash 2014-02 Univer s hene ty to 0-20 ity of N-Acetam adverse 00:00: [place] inophen reaction 00 Medical s Branch Hydrocod Propensi Active Other - See 2014-02 U nivers one ty to comments 0-20 ity of adverse 00:00: [place] reaction 00 Medical s Branch Iodine Propensi Active Nausea 2014-02 [employer] Univer s ty to and/or 0-20 related ity of adverse Vomiting 00:00: [place] reaction Medical s Branch Tramadol Propensi Active Rash 2014-02 Univer s Hcl ty to 0-20 ity of adverse 00:00: [place] reaction Medical s Branch Tylenol- Propensi Active [facility] Codeine ty to 9-16 [place] adverse 00:00: of reaction 00 Medicin s to e drug ACETAMIN Allergy Active Med N\\T\\V [facility] OPHEN-CO 8- [facility] DEINE 00:00: Medical 00 Center Acetamin Drug Active Nausea And [facility] ophen-Co Intolera Vomiting 8 Luke s deine nce 00:00: Medical 00 Center Shellfis Propensi Active Nausea And [facility]-Derive ty to Vomiting 10-06 Colleg e d adverse 00:00: of Products reaction 00 Medici n s to e drug Propoxyp Drug Active Itching [facility] hene Allergy 8-11 [facility] N-Acetam 00:00: Medical inophen 00 Center Hydrocod Drug Active Other (See Stomach [facility] one-Acet Intolera Comments) 8 burning Jenae kes aminophe nce 00:00: Medical n 00 Center Iodine Drug Active Nausea And [facility] And Allergy Vomiting 8- [facility] Iodide 00:00: Medical Containi 00 Center ng Products Shellfis Drug Active Nausea And [facility] h Allergy Vomiting 8- [facility] Containi 00:00: Medical ng 00 Center Products Tramadol Drug Active [facility] -Acetami Allergy 8- [facility] nophen 00:00: Medical 00 Center Tramadol Drug Active Itching [facility] Allergy 8-11 [facility] 00:00: Medical 00 Center PROPOXYP Allergy Active Itching [facility] HENE 8-11 [facility] N-ACETAM 00:00: Medical INOPHEN 00 Center HYDROCOD Allergy Active Other [facility] ONE-ACET 8-11 [facility] AMINOPHE 00:00: Medical N 00 Center IODINE Allergy Active N\\T\\V [facility] AND 8-11 [facility] IODIDE 00:00: Medical CONTAINI 00 Center NG PRODUCTS SHELLFIS Allergy Active N\\T\\V [facility] H 8-11 [facility] CONTAINI 00:00: Medical NG 00 Center PRODUCTS TRAMADOL Allergy Active It[facility] -ACETAMI 8-11 [facility] NOPHEN 00:00: Medical 00 Center TRAMADOL Allergy Active Itching [facility] 8-11 [facility] 00:00: Medical 00 [place] Hydrocod Propensi Active Burning [facility] ty to 09-17 in [place] adverse 00:00: stomach of reaction 00 Medicin s to e drug Iodine Propensi Active vomiting [facility] ty to 723 [place] adverse 00:00: of reaction 00 Medicin s to e drug Tramadol Propensi Active itching [place] [facility] ty to 723 [place] adverse 00:00: of reaction 00 Medicin s to e drug Social History Social Habit Start Date Stop Date Quantity Comments Source Exposure to 2022-01-29 2022-02-08 Not sure University SARS-CoV-2 (event) 00:00:00 12:41:00 [facility] Cigarettes smoked 2019-04-04 2019-04-04 [facility] of current (pack per 00:00:00 00:00:00 Medicin e day) - Reported Cigarette 2019-04-04 2019-04-04 [facility] of pack-years 00:00:00 00:00:00 Medicine Alcohol intake 2019-02-25 2019-02-[address] [facility] Vamsi es 00:00:00 00:00:00 non-drinker of Medical Ce nter alcohol (finding) Tobacco use and 2014-10-06 2014-10-[address] [facility] [address] Jenae kes exposure 00:00:00 00:00:00 [facility] Tobacco Comment 2014-10-06 2014-10-06 quit smoking 25 HARLEEN Gamez 00:00:00 00:00:00 yrs ago [facility] Center History of tobacco 1984-08-17 Chews Tobacco [facility] of use 00:00:00 Medicine Sex [birth year] HARLEEN Mayers 00:00:00 00:00:00 [facility] Center Smoking Status Start Date Stop Date Source Former smoker 2019-04-04 00:00:00 2019-04-04 00:00:00 [facility] Medications Ordered Filled Start Stop Current Ordering Indication Dosage Frequency Signature Comments Components Source Medication Medication Date Date Medication? Clinician (SIG) Name Name hydroCHLORO 2021-02 Yes [id number] 25mg Take 1 Univers thiazide 25 2-14 tablet by ity of mg tablet 00:[place] morning. Branch lisinopriL 2021-02 Yes [id number] 20mg Take 1 U nivers 20 mg 2-14 tablet by ity of tablet 00:00: mouth in [place] 00 the Medical morning Branch and 1 tablet in the evening. levothyroxi 2021-02 Yes [id number] 125ug Take 1 Univers ne 125 mcg 2-14 tablet by ity of tablet 00:00: mouth [place] 00 every Medical morning. Branch hydroCHLORO 2021-02 Yes [id number] 25mg Take 1 Univers thiazide 25 2-14 tablet by ity of mg tablet 00:00: [place] the [place] morning. Branch lisinopriL 2021-02 Yes [id number] 20mg Take 1 U nivers 20 mg 2-14 tablet by ity of tablet 00:00: mouth in [place] 00 the Medical morning Branch and 1 tablet in the evening. levothyroxi 2021-02 Yes [id number] 125ug Take 1 Univers ne 125 mcg 2-14 tablet by ity of tablet 00:00: mouth [place] 00 every Medical morning. Branch hydroCHLORO 2021-02 Yes [id number] 25mg Take 1 Univers thiazide 25 2-14 tablet by ity of mg tablet 00:00: [place] the [place] morning. Branch lisinopriL 2021-02 Yes [id number] 20mg Take 1 U nivers 20 mg 2-14 tablet by ity of tablet 00:00: mouth in [place] 00 the Medical morning Branch and 1 tablet in the evening. levothyroxi 2021-02 Yes [id number] 125ug Take 1 Univers ne 125 mcg 2-14 tablet by ity of tablet 00:00: mouth [place] 00 every Medical morning. Branch hydroCHLORO 2021-02 Yes [id number] 25mg Take 1 Univers thiazide 25 2-14 tablet by ity of mg tablet 00:00: [place] the Medical morning. Branch lisinopriL 2021-02 Yes [id number] 20mg Take 1 U nivers 20 mg 2-14 tablet by ity of tablet 00:00: mouth in [place] 00 the Medical morning Branch and 1 tablet in the evening. levothyroxi 2021-02 Yes [id number] 125ug Take 1 Univers ne 125 mcg 2-14 tablet by ity of tablet 00:00: mouth [place] 00 every Medical morning. Branch hydroCHLORO Yes [id number] 25mg Take 1 Univers thiazide 25 6-14 tablet by ity of mg tablet 00:00: mouth [place] 00 daily. Medical Branch lisinopriL Yes [id number] 20mg Take 1 U nivers 20 mg 6-14 tablet by ity of tablet 00:00: mouth 2 [place] 00 (two) Medical times Branch daily. hydroCHLORO Yes [id number] 25mg Take 1 Univers thiazide 25 6-14 tablet by ity of mg tablet 00:00: mouth [place] 00 daily. Medical Branch lisinopriL Yes [id number] 20mg Take 1 U nivers 20 mg 6-14 tablet by ity of tablet 00:00: mouth 2 [place] 00 (two) Medical times Branch daily. hydroCHLORO 2021- No [id number] 25mg Take 1 Univers thiazide 25 6-14 12-14 tablet by it y of mg tablet 00:00: 00:00 mouth [place] 00 :00 daily. Medical Branch lisinopriL 2021- No [id number] 20mg Take 1 Univers 20 mg 6-14 12-14 tablet by ity of tablet 00:00: 00:00 mouth 2 [place] 00 :00 (two) Medical times Branch daily. hydroCHLORO 2021- No [id number] 25mg Take 1 Univers thiazide 25 6-14 12-14 tablet by it y of mg tablet 00:00: 00:00 mouth [place] 00 :00 daily. Medical Branch lisinopriL 2021- No [id number] 20mg Take 1 Univers 20 mg 6-14 12-14 tablet by ity of tablet 00:00: 00:00 mouth 2 [place] 00 :00 (two) Medical times Branch daily. LEVOTHYROXI Yes TAKE 1 Univ ers NE 125 mcg 2-04 TABLET BY ity of tablet 00:00: MOUTH IN [place] 00 THE Medical MORNING Branch LEVOTHYROXI Yes TAKE 1 Univ ers NE 125 mcg 2-04 TABLET BY ity of tablet 00:00: MOUTH IN [place] 00 THE Medical MORNING Branch LEVOTHYROXI 2021- No TAKE 1 Uni vers NE 125 mcg 2-04 12-14 TABLET BY ity of tablet 00:00: 00:00 MOUTH IN [place] 00 :00 THE Medical MORNING Branch LEVOTHYROXI 2021- No TAKE 1 Uni vers NE 125 mcg 2-04 12-14 TABLET BY ity of tablet 00:00: 00:00 MOUTH IN [place] 00 :00 THE Medical MORNING Branch lisinopriL- 2020-02- No [id number] 2{tbl} Take 2 Univers hydrochloro 2-13 06-14 tablets by i ty of thiazide 00:00: 00:00 mouth [place] 20-12.5 mg 00 :00 daily. Medical per tablet Branch levothyroxi 2020-02- No [id number] TAKE 1 Univers ne 112 mcg 2-13 06-14 TABLET BY ity of tablet 00:00: 00:00 MOUTH IN [place] 00 :00 THE Medical MORNING Branch aspirin 2019-02 Yes 81mg Take 81 mg Univ ers (ASPIRIN 2-09 by mouth ity of LOW DOSE) 14:29: daily. [place] 81 mg EC 33 Medical tablet Branch aspirin 2019-02 Yes 81mg Take 81 mg Univ ers (ASPIRIN 2-09 by mouth ity of LOW DOSE) 14:29: daily. [place] 81 mg EC 33 Medical tablet Branch aspirin 2019-02 Yes 81mg Take 81 mg Univ ers (ASPIRIN 2-09 by mouth ity of LOW DOSE) 14:29: daily. [place] 81 mg EC 33 Medical tablet Branch aspirin 2019-02 Yes 81mg Take 81 mg Univ ers (ASPIRIN 2-09 by mouth ity of LOW DOSE) 14:29: daily. [place] 81 mg EC 33 Medical tablet Branch aspirin 2019-02 Yes 81mg Take 81 mg Univ ers (ASPIRIN 2-09 by mouth ity of LOW DOSE) 14:29: daily. [place] 81 mg EC 33 Medical tablet Branch aspirin 2019-02 Yes 81mg Take 81 mg Univ ers (ASPIRIN 2-09 by mouth ity of LOW DOSE) 14:29: daily. [place] 81 mg EC 33 Medical tablet Branch lisinopril Yes Take by [facility] or (PRINIVIL, 2 [facility] ZESTRIL) 20 19:17: daily. 20 o f MG tablet 18 -25 mg Medicin e Levothyroxi Yes Take by [place] [facility] ne Sodium 2-07 mouth [place] 112 MCG 19:17: daily. of CAPS 18 Medicin e gabapentin Yes 600mg Take 600 [facility] (NEURONTIN) 2-07 mg by [place] 300 MG 19:17: mouth two of capsule 18 times Medicin daily. e aspirin EC Yes 81mg Take 81 mg B [facility] 81 MG 2-07 by mouth College tablet 19:17: daily. of 18 Medicin e pramipexole Yes .75mg Take 0.75 Jj (MIRAPEX) 2-07 mg by [place] 1.5 MG 19:17: mouth two of tablet 18 times Medicin daily. e levothyroxi 2018-02 Yes 112ug QD Take [address] ne 2-30 mcg by [facility] (SYNTHROID, 18:54: mouth Medic al LEVOTHROID) 14 daily. [place] 112 MCG tablet gabapentin 2018-02 Yes 600mg Q.5D Take [address] (NEURONTIN) 2-30 mg by [facility] 300 MG 18:54: mouth 2 Medical capsule 14 (two) Center times daily 2 tabs. pramipexole 2018-02 Yes .125mg QD Take 0.[address] (MIRAPEX) 2-30 mg by [facility] 0.125 MG 18:54: mouth Medical tablet 14 nightly . [place] lisinopril- 2018-02 Yes 1{tbl} QD Take [address] hydroCHLORO 2-30 tablet by Vamsi es thiazide 18:54: mouth Medical (PRINZIDE,Z 14 daily. [place] ESTORETIC) 20-25 mg per tablet lisinopril Yes Take by [facility] or (PRINIVIL, 8 [facility] ZESTRIL) 20 18:16: daily. 20 o f MG tablet 39 -25 mg Medicin e Levothyroxi Yes Take by [place] ne Sodium 09-27 [facility] 112 MCG 18:16: daily. of CAPS 39 Medicin e gabapentin Yes 600mg Take 600 [facility] (NEURONTIN) 09-27 mg by [place] 300 MG 18:16: mouth two of capsule 39 times Medicin daily. e aspirin EC Yes 81mg Take 81 mg B [facility] 81 MG 09-27 by mouth College tablet 18:16: daily. of 39 Medicin e pramipexole Yes .75mg Take 0.75 [facility] (MIRAPEX) - mg by [place] 1.5 MG 18:16: mouth two of tablet 39 times Medicin daily. e pramipexole Yes 1mg 1 mg at [facility] vers (MIRAPEX) 1 9-24 bedtime. ity of mg tablet 00:00: [facility] gabapentin Yes 300mg 300 mg. [facility] vers (NEURONTIN) 11-19 ity of 300 mg 00:00: [place] capsule [facility] pramipexole Yes 1mg 1 mg at [facility] vers (MIRAPEX) 1 24 bedtime. ity of mg tablet 00:00: [facility] gabapentin Yes 300mg 300 mg. [facility] vers (NEURONTIN) 11-19 ity of 300 mg 00:00: [place] capsule [facility] pramipexole Yes 1mg 1 mg at [facility] vers (MIRAPEX) 1 -24 bedtime. ity of mg tablet 00:00: [facility] gabapentin 2014- Yes 300mg 300 mg. Uni vers (NEURONTIN) 11-19 ity of 300 mg 00:00: [place] capsule [facility] pramipexole Yes 1mg 1 mg at [facility] vers (MIRAPEX) 1 -24 bedtime. ity of mg tablet 00:00: [facility] gabapentin Yes 300mg 300 mg. [facility] vers (NEURONTIN) 11-19 ity of 300 mg 00:00: [place] capsule [facility] pramipexole Yes 1mg 1 mg at Uni vers (MIRAPEX) 1 9-24 bedtime. ity of mg tablet 00:00: [place] 00 Medical Branch gabapentin 2014-0 Yes 300mg 300 mg. Uni vers (NEURONTIN) 9 ity of 300 mg 00:00: [place] capsule 00 Medical Branch pramipexole 2014- Yes 1mg 1 mg at Uni vers (MIRAPEX) 1 924 bedtime. ity of mg tablet 00:00: [place] 00 Medical Branch gabapentin 2014- Yes 300mg 300 mg. Uni vers (NEURONTIN) 9 ity of 300 mg 00:00: [place] capsule 00 Medical Branch Immunizations Ordered Filled Immunization Date Status Comments [facility] e Immunization Name Name SARS-COV-2 COVID-19 2021-11-18 Completed Unive rsity of VACCINE 18 YRS+, 00:00:00 [place] Me dical BIVALENT 0.5ML, IM, Branc h (MODERNA BOOSTER) SARS-COV-2 COVID-19 2021-11-18 Completed Unive rsity of VACCINE 12 YRS+, 00:00:00 [place] Me dical BIVALENT 0.5ML, IM, Branc h (MODERNA BOOSTER) SARS-COV-2 COVID-19 2021-11-18 Completed Unive rsity of VACCINE 12 YRS+, 00:00:00 [place] Me dical BIVALENT 0.5ML, IM, Branc h (MODERNA BOOSTER) SARS-COV-2 COVID-19 2021-11-18 Completed Unive rsity of VACCINE 12 YRS+, 00:00:00 [place] Me dical BIVALENT 0.5ML, IM, Branc h (MODERNA BOOSTER) SARS-COV-2 COVID-19 2021-11-18 Completed Unive rsity of VACCINE 12 YRS+, 00:00:00 [place] Me dical BIVALENT 0.5ML, IM, Branc h (MODERNA BOOSTER) Influenza Virus 2021-11-16 Completed Universit y of Vaccine,quad 00:00:00 [place] Medica l Im,preserve Free Branch 65+ Influenza Virus 2021-11-16 Completed Universit y of Vaccine,quad 00:00:00 [place] Medica l Im,preserve Free Branch 65+ Influenza Virus 2021-11-16 Completed Universit y of Vaccine,quad 00:00:00 [place] Medica l Im,preserve Free Branch 65+ Influenza Virus 2021-11-16 Completed Universit y of Vaccine,quad 00:00:00 [place] Medica l Im,preserve Free Branch 65+ SARS-COV-2 COVID-19 2021-06-03 Completed Unive rsity of MODERNA 0.25ML 00:00:00 [place] Medi kristina BOOSTER VACCINE Branch SARS-COV-2 COVID-19 2021-06-03 Completed Unive rsity of MODERNA 0.25ML 00:00:00 [place] Medi kristina BOOSTER VACCINE Branch SARS-COV-2 COVID-19 2021-06-03 Completed Unive rsity of MODERNA 0.25ML 00:00:00 [place] Medi kristina BOOSTER VACCINE Branch SARS-COV-2 COVID-19 2021-06-03 Completed Unive rsity of MODERNA 0.25ML 00:00:00 [place] Medi kristina BOOSTER VACCINE Branch SARS-COV-2 COVID-19 2021-06-03 Completed Unive rsity of MODERNA 0.25ML 00:00:00 [place] Medi kristina BOOSTER VACCINE Branch SARS-COV-2 COVID-19 2021-06-03 Completed Unive rsity of MODERNA 0.25ML 00:00:00 [place] Medi kristina BOOSTER VACCINE Branch SARS-COV-2 COVID-19 2020-12-20 Completed Unive rsity of MODERNA 0.25ML 00:00:00 [place] Medi kristina BOOSTER VACCINE Branch SARS-COV-2 COVID-19 2020-12-20 Completed Unive rsity of MODERNA 0.25ML 00:00:00 [place] Medi kristina BOOSTER VACCINE Branch SARS-COV-2 COVID-19 2020-12-20 Completed Unive rsity of MODERNA 0.25ML 00:00:00 [place] Medi kristina BOOSTER VACCINE Branch SARS-COV-2 COVID-19 2020-12-20 Completed Unive rsity of MODERNA 0.25ML 00:00:00 [place] Medi kristina BOOSTER VACCINE Branch SARS-COV-2 COVID-19 2020-12-20 Completed Unive rsity of MODERNA 0.25ML 00:00:00 [place] Medi kristina BOOSTER VACCINE Branch SARS-COV-2 COVID-19 2020-12-20 Completed Unive rsity of MODERNA 0.25ML 00:00:00 [place] Medi kristina BOOSTER VACCINE Branch Influenza High Dose 2020-11-19 Completed Unive rsity of 00:00:00 [place] [facility] Influenza High Dose 2020-11-19 Completed Unive rsity of 00:00:00 [facility] Influenza High Dose 2020-11-19 Completed Unive rsity of 00:00:00 [facility] Influenza High Dose 2020-11-19 Completed Unive rsity of 00:00:00 [facility] Influenza High Dose 2020-11-19 Completed Unive rsity of 00:00:00 [facility] Influenza High Dose 2020-11-19 Completed Unive rsity of 00:00:00 [facility] SARS-COV-2 COVID-19 2020-04-05 Completed Unive rsity of MODERNA VACCINE 00:00:00 [place] [facility] ical Branch SARS-COV-2 COVID-19 2020-04-05 Completed Unive rsity of MODERNA 12+ YRS 00:00:00 [place] Med ical VACCINE Branch SARS-COV-2 COVID-19 2020-04-05 Completed Unive rsity of MODERNA 12+ YRS 00:00:00 [place] [facility] ical VACCINE Branch SARS-COV-2 COVID-19 2020-04-05 Completed Unive rsity of MODERNA 12+ YRS 00:00:00 [place] Med ical VACCINE Branch SARS-COV-2 COVID-19 2020-04-05 Completed Unive rsity of MODERNA 12+ YRS 00:00:00 [place] Med ical VACCINE Branch SARS-COV-2 COVID-19 2020-04-05 Completed Unive rsity of MODERNA 12+ YRS 00:00:00 [place] [facility] ical VACCINE Branch SARS-COV-2 COVID-19 2020-03-08 Completed Unive rsity of MODERNA VACCINE 00:00:00 [place] [facility] ical Branch SARS-COV-2 COVID-19 2020-03-08 Completed Unive rsity of MODERNA 12+ YRS 00:00:00 [place] Med ical VACCINE Branch SARS-COV-2 COVID-19 2020-03-08 Completed Unive rsity of MODERNA 12+ YRS 00:00:00 [place] Med ical VACCINE Branch SARS-COV-2 COVID-19 2020-03-08 Completed Unive rsity of MODERNA 12+ YRS 00:00:00 [place] Med ical VACCINE Branch SARS-COV-2 COVID-19 2020-03-08 Completed Unive rsity of MODERNA 12+ YRS 00:00:00 [facility] VACCINE Branch SARS-COV-2 COVID-19 2020-03-08 Completed Unive rsity of MODERNA 12+ YRS 00:00:00 [facility] VACCINE Branch Influenza High Dose 2019-10-14 Completed Unive rsity of Quad 00:00:00 [facility] Branch Influenza High Dose 2019-10-14 Completed Unive rsity of Quad 00:00:00 [place] [facility] Influenza High Dose 2019-10-14 Completed Unive rsity of Quad 00:00:00 [facility] Branch Influenza High Dose 2019-10-14 Completed Unive rsity of Quad 00:00:00 [facility] Branch Influenza High Dose 2019-10-14 Completed Unive rsity of Quad 00:00:00 [facility] Branch Influenza High Dose 2019-10-14 Completed Unive rsity of Quad 00:00:00 [facility] Influenza High Dose 2018-12-25 Completed Unive rsity of 00:00:00 [facility] Influenza High Dose 2018-12-25 Completed Unive rsity of 00:00:00 [facility] Influenza High Dose 2018-12-25 Completed Unive rsity of 00:00:00 [facility] Influenza High Dose 2018-12-25 Completed Unive rsity of 00:00:00 [facility] Influenza High Dose 2018-12-25 Completed Unive rsity of 00:00:00 [facility] Influenza High Dose 2018-12-25 Completed Unive rsity of 00:00:00 [facility] Influenza High Dose 2017-12-27 Completed Unive rsity of 00:00:00 [facility] Influenza High Dose 2017-12-27 Completed Unive rsity of 00:00:00 [facility] Branch Influenza High Dose 2017-12-27 Completed Unive rsity of 00:00:00 [facility] Influenza High Dose 2017-12-27 Completed Unive rsity of 00:00:00 [facility] Branch Influenza High Dose 2017-12-27 Completed Unive rsity of 00:00:00 [facility] Branch Influenza High Dose 2017-12-27 Completed Unive rsity of 00:00:00 [facility] Influenza Hd 2017-12-27 Completed [facility] Colle ge of 00:00:00 Medicine Influenza Hd 2017-12-27 Completed [facility] Colle ge of 00:00:00 Medicine Influenza Virus 2016-01-04 Completed Universit y of Vaccine 00:00:00 [facility] Pneumococcal 2016-01-04 Completed University o f Polysaccharide, 00:00:00 [place] Med ical PPSV23 (PNEUMOVAX) Branch Influenza Virus 2016-01-04 Completed Universit y of Vaccine 00:00:00 [facility] Pneumococcal 2016-01-04 Completed University o f Polysaccharide, 00:00:00 [place] Med ical PPSV23 (PNEUMOVAX) Branch Influenza Virus 2016-01-04 Completed Universit y of Vaccine 00:00:00 [facility] Pneumococcal 2016-01-04 Completed University o f Polysaccharide, 00:00:00 [place] Med ical PPSV23 (PNEUMOVAX) Branch Influenza Virus 2016-01-04 Completed Universit y of Vaccine 00:00:00 [facility] Pneumococcal 2016-01-04 Completed University o f Polysaccharide, 00:00:00 [place] Med ical PPSV23 (PNEUMOVAX) Branch Influenza Virus 2016-01-04 Completed Universit y of Vaccine 00:00:00 [facility] Pneumococcal 2016-01-04 Completed University o f Polysaccharide, 00:00:00 [place] [facility] PPSV23 (PNEUMOVAX) Branch Influenza Virus 2016-01-04 Completed Universit y of Vaccine 00:00:00 [facility] Pneumococcal 2016-01-04 Completed University o f Polysaccharide, 00:00:00 [place] [facility] PPSV23 (PNEUMOVAX) Branch Vital Signs Vital Name Observation Time Observation Value Comments Source Systolic blood 2022-02-08 19:11:00 132 mm[Hg] Univer sity of pressure [facility] Diastolic blood 2022-02-08 19:11:00 84 mm[Hg] Unive rsity of [facility] Heart rate 2022-02-08 19:11:00 62 /min [facility] Body temperature 2022-02-08 19:11:00 36.56 [facility] Body height 2022-02-08 19:11:00 185.4 cm [facility] Body weight 2022-02-08 19:11:00 101.152 kg [facility] BMI 2022-02-08 19:11:00 29.42 kg/m2 [facility] Systolic blood 2021-08-09 18:10:00 156 mm[Hg] Univer sity of pressure [facility] Diastolic blood 2021-08-09 18:10:00 88 mm[Hg] Unive rsity of pressure [facility] Heart rate 2021-08-09 18:00:00 86 /min Universi ty of [facility] Body height 2021-08-09 18:00:00 185.4 cm Universi ty [facility] Body weight 2021-08-09 18:00:00 102.513 kg Universi ty [facility] BMI 2021-08-09 18:00:00 29.82 kg/m2 Universi ty [facility] Systolic blood 2019-04-04 19:17:00 139 mm[Hg] [facility] of pressure Medicine Diastolic blood 2019-04-04 19:17:00 84 mm[Hg] [facility] pressure Medicine Heart rate 2019-04-04 19:17:00 65 /min [facility]lege of Medicine Body height 2019-04-04 19:17:00 185.4 cm [facility] of Medicine Body weight 2019-04-04 19:17:00 95.255 kg [facility] of Medicine BMI 2019-04-04 19:17:00 27.71 kg/m2 [facility] of Medicine Systolic blood 2019-04-04 19:17:00 139 mm[Hg] [facility] of pressure Medicine Diastolic blood 2019-04-04 19:17:00 84 mm[Hg] [facility] of pressure Medicine Heart rate 2019-04-04 19:17:00 65 /min [facility] C ollege of Medicine Body height 2019-04-04 19:17:00 185.4 cm [facility] C [facility] of Medicine Body weight 2019-04-04 19:17:00 95.255 kg [facility] of Medicine BMI 2019-04-04 19:17:00 27.71 kg/m2 [facility] C ollege of Medicine Systolic blood 2018-09-27 18:16:00 148 mm[Hg] [facility] of pressure Medicine Diastolic blood 2018-09-27 18:16:00 84 mm[Hg] [facility] of pressure Medicine Heart rate 2018-09-27 18:16:00 58 /min [facility] C ollege of Medicine Body height 2018-09-27 18:16:00 185.4 cm [facility] ollege of Medicine Body weight 2018-09-27 18:16:00 89.359 kg [facility] ollege of [facility] BMI 2018-09-27 18:16:00 25.99 kg/m2 [facility] ollege [facility] Systolic blood 2018-09-27 18:16:00 148 mm[Hg] [facility] pressure Medicine Diastolic blood 2018-09-27 18:16:00 84 mm[Hg] [facility] Medicine Heart rate 2018-09-27 18:16:00 58 /min [facility] ollege of [facility] Body height 2018-09-27 18:16:00 185.4 cm [facility] ollege [facility] Body weight 2018-09-27 18:16:00 89.359 kg [facility] ollege [facility] BMI 2018-09-27 18:16:00 25.99 [facility] Procedures Procedure Date / Time Performed Performing Clinician Sour e EXTERNAL PROVIDER 2022-03-16 06:01:00 Doctor Unassigned, No [facility] [place] RECORDS Name Medical Branch SARS-COV-2 COVID-19 2021-11-18 18:33:03 Doctor Unassigned, No Un i[facility] [place] VACCINE 18 YRS+, Name Medical Branch BIVALENT 0.5ML, IM (MODERNA BOOSTER) Plan of Care Planned Activity Planned Date Details Comments Source Future Scheduled Test COLON CANCER SCREENING: [facility] COLONOSCOPY [code = Medicine COLON CANCER SCREENING: COLONOSCOPY] Future Scheduled Test MEDICARE AWV [code = [facility] MEDICARE AWV] Medicine Future Scheduled Test TETANUS SHOT (ADULT) [facility] [code = TETANUS SHOT Medicin e (ADULT)] Future Scheduled Test BMI FOLLOW UP PLAN [facility] [code = BMI FOLLOW UP Medici ne PLAN] Future Scheduled Test AAA Screen [code = AAA [facility] Screen] Medicine Future Scheduled Test FALL SCREEN [code = [facility] FALL SCREEN] Medicine Future Scheduled Test PREVNAR >= 65 (PCV13) [facility] [code = PREVNAR >= 65 Medici ne (PCV13)] Future Scheduled Test FLU VACCINE > 6 MONTHS [facility] [code = FLU VACCINE > 6 Medi cine MONTHS] Future Scheduled Test COLON CANCER SCREENING: [facility] COLONOSCOPY [code = Medicine COLON CANCER SCREENING: COLONOSCOPY] Future Scheduled Test TETANUS SHOT (ADULT) [facility] [code = TETANUS SHOT Medicin e (ADULT)] Future Scheduled Test BMI FOLLOW UP PLAN [facility] [code = BMI FOLLOW UP Medici ne PLAN] Future Scheduled Test AAA Screen [code = AAA [facility] Screen] Medicine Future Scheduled Test FALL SCREEN [code = [facility] FALL SCREEN] Medicine Future Scheduled Test PNEUMOVAX >=65 (PPSV23) [facility] [code = PNEUMOVAX >=65 Medic ine (PPSV23)] Future Scheduled Test PREVNAR >= 65 (PCV13) [facility] [code = PREVNAR >= 65 Medici ne (PCV13)] Future Scheduled Test MEDICARE AWV (Initial) [facility] [code = MEDICARE AWV Medicin e (Initial)] Future Scheduled Test FLU VACCINE > 6 MONTHS [facility] [code = FLU VACCINE > 6 Medi cine MONTHS] Encounters Start End Encounter Admission Attending Care Care Encounter Source Date/Time Date/Time Type Type Clinicians Facility Department ID 2022-08-09 2022-08-09 Outpatient Rico PANTOJA [facility] [id number] Univers 13:00:00 13:00:00 BRENDAN [facility] 2022-03-16 2022-03-16 Orders Doctor MAMTA 1.2.840.114 [id number] [facility] 00:00:00 00:00:00 Only Unassigned, CELIA 350.1.13.10 ity of [place] [facility] 4.2.7.2.686 Barrera as [phone] [address] 2022-02-08 2022-02-08 Office Administration Instructor Lab, Bert - [facility] 1.2.840.1 [id number] Univers 13:30:00 13:45:00 Visit Brendan Pantoja [facility] 350.1.13 .10 ity of [place] 4.2.7.2.686 Barrera as JHONATAN?BLEA [phone] [address] MEDICAL OFFICE BUILDING 2022-02-08 2022-02-08 Outpatient Rico PANTOJA [facility] [id number] Univers 13:30:00 13:30:00 BRENDAN [facility] 2022-02-08 2022-02-08 [facility] 1.2.840.114 [id number] Univers 13:00:00 13:30:00 Visit [facility] 350.1.13.10 it y of [place] 4.2.7.2.686 Barrera as JHONATAN?BLEA [phone] [address] OFFICE [facility] 2021-11-18 2021-11-18 Imm/Inj Vaccine, Ang Db Cbc Fam [facility] 1. 2.840.114 [id number] Univers 13:10:00 13:20:00 Visit Brendan Pantoja qamar [facility] 350.1.13 .10 ity of [place] 4.2.7.2.686 Barrera as JHONATAN?BLEA [phone] [address] OFFICE [facility] 2021-11-18 2021-11-18 Outpatient Rico PANTOJA [facility] [id number] Univers 13:10:00 13:10:00 BRENDAN moya [facility] 2021-08-09 2021-08-09 Office [facility] 1.2.840.114 [id number] Univers 13:00:00 13:15:00 Visit [facility] 350.1.13.10 it y of [place] 4.2.7.2.686 Barrera as JHONATAN?BLEA [phone] [address] OFFICE [facility] 2021-08-09 2021-08-09 Outpatient Rico PANTOJA [facility] [id number] Univers 13:00:00 13:00:00 BRENDAN moya [facility] 2021-08-09 2021-08-09 Outpatient Rico PANTOJA [facility] [id number] Univers 13:00:00 13:00:00 BRENDAN moya [facility] 2021-06-03 2021-06-03 Outpatient Rico FLORES [facility] [id number] Univers 16:00:00 16:00:00 JOSEPH moya [facility] 2021-06-03 2021-06-03 Imm/Inj Vaccine, [facility] 1.2.840.114 [id number] Univers 16:00:00 16:00:00 Visit Joseph Flores 350.1.13 .10 ity [place]2.[place] [phone] Ri alexandra BRAGG [address] [place] [address] 2021-03-31 2021-03-31 Refill [facility] 1.2.840.114 [id number] Univers 00:00:00 00:00:00 [facility] 350.1.13.10 it y of [place] 4.2.7.2.686 Barrera as JHONATAN?BLEA [phone] [facility] [address] [place] [address] OFFICE [facility] 2021-02-08 2021-02-08 Telephone [facility] 1.2.840.114 [id number] Univers 00:00:00 00:00:00 [place] [address]..13.10 it y of [place] 4.2.7.2.686 Barrera as JHONATAN?BLEA [phone] [facility] [address] 2021-02-07 2021-02-07 Out[facility] [id number] Univers 10:30:00 10:30:00 BRENDAN [facility] 2021-02-07 2021-02-07 Office Administration Instructor Lab, Ang - [facility] 1.2.840.1 14 [id number] Univers 09:21:45 09:36:45 Visit Brendan Pantoja [facility] 350..13 .10 [facility] 4.2.7.2.686 Barrera as JHONATAN?BLEA [phone] Ri alexandra BLUM [address] [facility] OFFICE [facility] 2021-02-07 2021-02-07 Outpatient R [facility] [id number] [facility] 09:15:00 09:15:00 [facility] 2021-02-07 2021-02-07 Office [facility] 1.2.840.114 [id number] Univers 08:49:26 09:04:26 Visit [facility] 350.1.13.10 it y of [place] 4.2.7.2.686 Barrera as JHONATAN?BLEA [phone] [facility] [address] OFFICE [facility] 2021-02-07 2021-02-07 Orders Doctor MAMTA 1.2.840.114 [id number] Univers 00:00:00 00:00:00 Only Unassigned, CELIA 350.1.13.10 ity of [place] [facility] 4.2.7.2.686 Barrera as [phone] [address] 2020-12-20 2020-12-20 Outpatient Rico FLORES [facility] [id number] Univers 14:20:00 14:20:00 JOSEPH moya [facility] 2020-12-20 2020-12-20 Imm/Inj Nurse, Adc Pob Immunization [facility] 1.2.840.114 [id number] Univers 13:43:04 13:43:20 Visit Joseph Flores 350.1.13 .10 [place] of [place].2.[place] Profess[place] [phone] [facility] 2020-11-20 2020-11-20 [facility] 1.2.840.114 [id number] Univers 00:00:00 00:00:00 [facility] 350.1.13.10 it y of [place] 4.2.7.2.686 Barrera as Professio [phone] [facility] [address] [place] [address] 2020-10-30 2020-10-30 Orders Doctor MAMTA 1.2.840.114 [id number] Univers 00:00:00 00:00:00 Only Unassigned, CELIA 350.1.13.10 ity of [place] [facility] 4.2.7.2.686 Barrera as [phone] [address] 2020-04-05 2020-04-05 Outpatient Rico COCHRAN [facility] [id number] Univers 09:50:00 09:50:00 GRANT [facility] 2020-03-08 2020-03-08 Outpatient Rico COCHRAN [facility] [id number] Univers 10:50:00 10:50:00 GRANT [facility] 2020-02-04 2020-02-04 Outpatient Rico PANTOJA [facility] [id number] Univers 13:30:00 13:30:00 BRENDAN [facility] 2019-06-11 2019-06-11 Orders Doctor MAMTA 1.2.840.114 [id number] 00:00:00 00:00:00 Only Unassigned, CELIA 350.1.13.10 [place] [facility] 4.2.7.2.686 [id number] [id number] 2019-06-09 2019-06-09 Telephone Po, [facility] 1.2.840.114 [id number] 00:00:00 00:00:00 [facility] 350.1.13.10 [place] 4.2.7.2.686 Professio [phone] [facility] Office [facility] One 2019-06-09 2019-06-09 Telephone [facility] 1.2.840.114 [id number] 00:00:00 00:00:00 Brendan Fanny 350.1.13.10 [place] 4.2.7.2.686 Professio [phone] [address] 2019-04-04 2019-04-04 Office TUYET Segundo 1.2.840.114 [id number] [facility] 12:11:26 16:57:11 Visit Sincere AMBULATOR 350.1.13.21 Y 0.2.7.2.686 [id number] 800 2019-04-04 2019-04-04 Office ArnoldTUYET holloway 1.2.840.114 [id number] [facility] 12:11:26 16:57:11 Visit Sincere AMBULATOR 350.1.13.21 College Y 0.2.7.2.686 [id number] [facility] 800 e 2019-03-12 2019-03-12 Orders Doctor MAMTA 1.2.840.114 [id number] 00:00:00 00:00:00 Only Unassigned, CELIA 350.1.13.10 [place] [facility] 4.2.7.2.686 [id number] 009 2019-02-13 2019-02-13 Outpatient Rico PANTOJA [facility] [id number] [facility] 11:15:41 23:59:00 BRENDAN [facility] 2019-02-13 2019-02-13 [facility] [id number] [facility] 11:15:41 23:59:00 BRENDAN humberto [facility] 2019-02-06 2019-02-06 Outpatient R SHYANNE, [facility] [id number] [facility] 14:30:00 14:29:27 CRISTOFER moya [facility] 2018-09-27 2018-09-27 Office TUYET Segundo 1.2.840.114 [id number] 12:23:17 14:20:15 Visit Sincere AMBULATOR 350.1.13.21 Y 0.2.7.2.686 [id number] [id number] 2018-09-27 2018-09-27 Office TUYET Segundo 1.2.840.[id number] [place] [address] 12:23:17 14:20:15 Visit Sincere AMBULATOR 350.1.13.21 College Y 0.2.7.2.686 of [phone] Medi count includes the [facility] 800 e Results Test Description Test Time Test Comments Results Result Sour e Comments TISSUE EXAM 2019-02-28 Surgical Pathology 08:16:00 Report Case: [id number] Authorizing Provider: Jamie Ruiz MD Collected: 02/24/2019 1425 Ordering Location: [facility] Received: 02/24/2019 1439 SERVICES Pathologist: Prateek Gardner MD Specimen: Explant, explanted battery NEUROSURGICAL HARDWARE, REMOVAL:DEEP BRAIN STIMULATOR BATTERY (GROSS EXAMINATION ONLY) Signing Pathologist Direct Phone Line: [phone] lly signed by Prateek Gardner MD on 02/28/2019 at 8:16 [id number] of battery life of deep brain stimulatorExplant Received fresh labeled with the patient's name, accession number and "explanted battery" is a 6.3 x 4.8 x 1.3 cm, metallic, garcia, rectangular piece of hardware that contains the following inscription:"[employer]" "ACTIVA PC""SN [id number]"A gross photograph is taken. No sections are submitted. This case is for gross examination only. PA/ew
[2022-03-31] MEDS ORDERED: FENTANYL CITR 100 MCG/2 ML ONE (01:01)
[2022-03-31] MEDS ORDERED: KETAMINE HCL 500 MG/5 ML VIAL ONE (01:37)
[2022-03-31] MEDS ORDERED: NA CHLORIDE 0.9% 1,000 ML ONE (02:05)
--- NOTE | 2022-03-31 03:31 | EDPHYS ---
Physician Documentation [facility] Name: Lance David Age: 76 yrs Sex: Male : 1945 Arrival Date: 03/31/2022 Time: 00:40 Bed 6 Private MD: ED Physician Daniel Shin HPI: 03/31 02:15 This 76 yrs old Male presents to ER via EMS with complaints of Left shoulder pain. rt 02:15 Patient presents to the ED with any acute onset of left shoulder pain just prior to rt arrival. Patient states that he was using his arms to hoist him up when he had reported dislocation to the left arm. Pain is aching nature, nonradiating, moderate severity, no other aggravating or elevating factors. Patient has had surgery on that shoulder before.. Historical: - Allergies: 00:43 ACETAMINOPHEN; kd3 00:43 Codeine; kd3 00:43 hydrocodone bitartrate (bulk); kd3 00:43 Iodine; kd3 00:43 Tramadol HCl; kd3 00:43 propoxyphene napsylate; kd3 - Home Meds: 00:44 Lisinopril Oral [Active]; kd3 00:45 gabapentin [Active]; pramipexole [Active]; levothyroxine oral [Active]; Aspirin Oral kd3 [Active]; - PMHx: 00:43 ESSENTIAL TREMORS; Hypertension; Hypothyroidism; kd3 - Immunization history:: Adult Immunizations up to date. - Social history:: Smoking status: unknown. - Family history:: not pertinent. ROS: 02:15 Constitutional: Negative for fever, chills, and weight loss, Cardiovascular: Negative rt for chest pain, palpitations, and edema, Respiratory: Negative for shortness of breath, cough, wheezing, and pleuritic chest pain, Abdomen/GI: Negative for abdominal pain, nausea, vomiting, diarrhea, and constipation, Skin: Negative for injury, rash, and discoloration, Neuro: Negative for headache, weakness, numbness, tingling, and seizure, Psych: Negative for depression, anxiety, suicide ideation, homicidal ideation, and hallucinations. 02:15 MS/extremity: Positive for injury or acute deformity, pain, Negative for Exam: 02:15 Constitutional: This is a well developed, well nourished patient who is awake, alert, rt and in no acute distress. Head/Face: Normocephalic, atraumatic. Chest/axilla: Normal chest wall appearance and motion. Nontender with no deformity. No lesions are appreciated. Cardiovascular: Regular rate and rhythm with a normal S1 and S2. No gallops, murmurs, or rubs. Normal PMI, no JVD. No pulse deficits. Respiratory: Lungs have equal breath sounds bilaterally, clear to auscultation and percussion. No rales, rhonchi or wheezes noted. No increased work of breathing, no retractions or nasal flaring. Abdomen/GI: Soft, non-tender, with normal bowel sounds. No distension or tympany. No guarding or rebound. No evidence of tenderness throughout. Skin: Warm, dry with normal turgor. Normal color with no rashes, no lesions, and no evidence of cellulitis. Neuro: Awake and alert, GCS 15, oriented to person, place, time, and situation. Cranial nerves II-XII grossly intact. Motor strength 5/5 in all extremities. Sensory grossly intact. Cerebellar exam normal. Normal gait. Psych: Awake, alert, with orientation to person, place and time. Behavior, mood, and affect are within normal limits. 02:15 Musculoskeletal/extremity: Obvious shoulder dislocation to the left shoulder, tenderness, no swelling, pulses, motor, sensation intact throughout the extremity.. Vital Signs: 00:50 BP 104 / 66; Pulse 68; Resp 19; Temp 97.8(O); Pulse Ox 98% on R/A; Weight 99.34 kg; kd3 Pain 10/10; 01:40 BP 121 / 61; Pulse 73; Resp 14; Pulse Ox 100% on NC; pf1 02:00 BP 147 / 90; Pulse 79; Resp 17; Pulse Ox 100% on NC; pf1 02:02 BP 156 / 83; Pulse 88; Resp 17; Pulse Ox 97% on NC; pf1 02:06 BP 143 / 74; Pulse 86; Resp 15; Pulse Ox 99% on NC; pf1 02:51 ll3 03:01 BP 118 / 74; Pulse 71; Resp 14; Pulse Ox 100% on 2 lpm NC; ll3 03:54 BP 111 / 64; Pulse 72; Resp 14; Pulse Ox 98% on R/A; ll3 02:51 See conscious sedation flow sheet ll3 Procedures: 02:15 Reduction: of the left shoulder, using manipulation, Immobilized with sling, Patient rt tolerated well. Post reduction film - reveals normal alignment. Joint Treatment:. Moderate sedation: Pre-procedure assessment: the patient has been NPO 3 hour(s) prior to arrival, ASA physical classification: II - mild/mod systemic disease that does not interfere with daily routines, Airway assessment: able to hyperextend neck, able to maintain airway, can open mouth without difficulty, Mallampati classification of tongue size: I - faucial pillars, soft palate, and uvula can be fully visualized, Monitoring during procedure: quality assurance monitor chassis, continuous pulse oximetry, nurse at bedside at all times, Medications employed: Ketamine, 100 mg(s), Post-procedure assessment: the patient is not sedated, Respiratory status: even and unlabored, a reversal agent was not used. MDM: 00:41 Patient medically screened. rt 02:15 Differential diagnosis: Anterior dislocation with fracture, Anterior dislocation rt without fracture. Data reviewed: vital signs, nurses notes, radiologic studies. Independent interpretation of the following test(s) in the Emergency Department X-Ray: My interpretation is Dislocation noted, resolved on reduction. Test considered but Not performed: CT: No head trauma, CT scan. Care significantly affected by the following chronic conditions: Prior surgery history to shoulder. Response to treatment: the patient's symptoms have resolved after treatment. 03/31 00:41 Order name: Shoulder Left (2 View) XRAY rt 03/31 02:14 Order name: Shoulder 1 View EDMS Administered Medications: 01:03 Drug: fentaNYL (PF) 50 mcg Route: IVP; Site: right hand; ll3 03:54 Follow up: Response: No adverse reaction ll3 02:03 Drug: NS 0.9% 1000 ml Route: IV; Rate: 1 bolus; Site: right hand; ll3 02:03 Drug: Ketamine 100 mg Route: IVP; Site: right hand; ll3 03:54 Follow up: Response: No adverse reaction ll3 02:47 CANCELLED (Duplicate Order): Ketamine 100 mg IM once rt Disposition Summary: 03/31/22 03:30 Discharge Ordered Location: Home rt Problem: new rt Symptoms: are resolved rt Condition: Stable rt Diagnosis - Other dislocation of left shoulder joint rt Followup: rt - With: - When: 5 - 6 days - Reason: Discharge Instructions: - Discharge Summary Sheet rt - Shoulder Dislocation rt - Moderate Conscious Sedation, Adult, Care After rt Forms: - Medication Reconciliation Form rt - Thank You Letter rt - Antibiotic Education rt - Prescription Opioid Use rt Signatures: Dispatcher [employer] EDMargoth Nye, RN RN ll3 Jennyfer Huggins RN RN kd3 Daniel Shin MD MD rt Corrections: (The following items were deleted from the chart) 02:14 02:09 Shoulder Left 2 View+RAD.RAD.BRZ ordered. EDMS EDMS 02:47 01:31 Ketamine 100 mg IM once ordered. rt rt 02:47 02:47 Ketamine 100 mg IM once ordered. rt rt 02:50 02:50 [place] ordered. rt rt
--- NOTE | 2022-03-31 03:31 | ER ---
Nurse's Notes [facility] Name: Lance David Age: 76 yrs Sex: Male : 1945 Arrival Date: 03/31/2022 Time: 00:40 Bed 6 Private MD: Diagnosis: Other dislocation of left shoulder joint Presentation: 03/31 00:40 Chief complaint: EMS states: Pt had a shoulder reconstruction several years ago. kd3 Tonight he was getting something out of the fridge and he pushed himself up with the arm that he had his shoulder repaired on and he heard several cracks and felt severe pain. Pt has a 22 in the R hand. Pt was given 50 MCG of fentanyl in route, BP dropped to the 90's so patient wasn't given any more pain meds. Pain remains 10/10. Risk Assessment: Do you want to hurt yourself or someone else? Patient reports no desire to harm self or others. Onset of symptoms was March 31, 2022. 00:40 Method Of Arrival: EMS: [facility] kd3 00:40 Acuity: RUTHIE 3 kd3 00:51 Coronavirus screen: Vaccine status: Patient reports receiving the 2nd dose of the covid kd3 vaccine. Ebola Screen: No symptoms or risks identified at this time. Initial Sepsis Screen: Does the patient meet any 2 criteria? No. Patient's initial sepsis screen is negative. Does the patient have a suspected source of infection? No. Patient's initial sepsis screen is negative. Triage Assessment: 00:44 General: Appears uncomfortable, Behavior is calm, cooperative. Pain: Complains of pain kd3 in anterior aspect of left shoulder, left axilla and posterior aspect of left shoulder. Neuro: Level of Consciousness is awake, alert, obeys commands, Oriented to person, place, time, situation. Historical: - Allergies: 00:43 ACETAMINOPHEN; kd3 00:43 Codeine; kd3 00:43 hydrocodone bitartrate (bulk); kd3 00:43 Iodine; kd3 00:43 Tramadol HCl; kd3 00:43 propoxyphene napsylate; kd3 - Home Meds: 00:44 Lisinopril Oral [Active]; kd3 00:45 gabapentin [Active]; pramipexole [Active]; levothyroxine oral [Active]; Aspirin Oral kd3 [Active]; - PMHx: 00:43 ESSENTIAL TREMORS; Hypertension; Hypothyroidism; kd3 - Immunization history:: Adult Immunizations up to date. - Social history:: Smoking status: unknown. - Family history:: not pertinent. Screenin:04 Abuse screen: Denies threats or abuse. Denies injuries from another. Nutritional ll3 screening: No deficits noted. Tuberculosis screening: No symptoms or risk factors identified. 03:53 [facility] ED Fall Risk Assessment (Adult) History of falling in the last 3 months, ll3 including since admission No falls in past 3 months (0 pts) Confusion or Disorientation No (0 pts) Intoxicated or Sedated No (0 pts) Impaired Gait No (0 pts) Mobility Assist Device Used No (0 pt) Altered Elimination No (0 pt) Score/Fall Risk Level 0 - 2 = Low Risk Oriented to surroundings, Maintained a safe environment, Educated pt \T\ family on fall prevention, incl call for assistance when getting out of bed. Assessment: 01:04 General: Appears uncomfortable, Behavior is calm, cooperative. Pain: Complains of pain ll3 in left axilla. Neuro: Level of Consciousness is awake, alert, obeys commands, Oriented to person, place, time, situation. Respiratory: Respiratory effort is even, unlabored, Respiratory pattern is regular, symmetrical. Derm: Skin is pink, warm \T\ dry. Musculoskeletal: Range of motion: limited in left arm Reports pain in left arm Pain is 10 out of 10 on a pain scale. 01:52 Reassessment: No changes from previously documented assessment. Patient and/or family kd3 updated on plan of care and expected duration. Pain level reassessed. Patient is alert, oriented x 3, equal unlabored respirations, skin warm/dry/pink. States pain is 10/10, ERP notified. 03:01 Reassessment: Patient and/or family updated on plan of care and expected duration. Pain ll3 level reassessed. Patient is alert, oriented x 3, equal unlabored respirations, skin warm/dry/pink. Reports drowsiness Patient denies pain at this time. Patient states feeling better. Patient states symptoms have improved. Vital Signs: 00:50 BP 104 / 66; Pulse 68; Resp 19; Temp 97.8(O); Pulse Ox 98% on R/A; Weight 99.34 kg; kd3 Pain 10/10; 01:40 BP 121 / 61; Pulse 73; Resp 14; Pulse Ox 100% on NC; pf1 02:00 BP 147 / 90; Pulse 79; Resp 17; Pulse Ox 100% on NC; pf1 02:02 BP 156 / 83; Pulse 88; Resp 17; Pulse Ox 97% on NC; pf1 02:06 BP 143 / 74; Pulse 86; Resp 15; Pulse Ox 99% on NC; pf1 02:51 ll3 03:01 BP 118 / 74; Pulse 71; Resp 14; Pulse Ox 100% on 2 lpm NC; ll3 03:54 BP 111 / 64; Pulse 72; Resp 14; Pulse Ox 98% on R/A; ll3 02:51 See conscious sedation flow sheet ll3 ED Course: 00:40 Patient arrived in ED. la1 00:40 Daniel Shin MD is Attending Physician. rt 00:43 Triage completed. kd3 00:45 Arm band placed on. kd3 01:04 Patient has correct armband on for positive identification. Bed in low position. Call ll3 light in reach. Side rails up X 1. Adult w/ patient. 01:07 Maintain EMS IV. Dressing intact. Good blood return noted. Site clean \T\ dry. Gauge \T\ ll 3 site: 22 R hand. 01:15 Shoulder Left (2 View) XRAY In Process Unspecified. EDMS 02:14 Shoulder 1 View In Process Unspecified. EDMS 02:50 Assist provider with reduction of left shoulder using manipulation, Set up for ll3 procedure. Performed by Daniel Shin MD Immobilized with sling, Patient tolerated well. 03:03 Margoth Jackson, BRADLEY is Primary Nurse. ll3 03:30 Enmanuel Perla MD is Referral Physician. rt 03:53 IV discontinued, intact, bleeding controlled, No redness/swelling at site. Pressure ll3 dressing applied. Administered Medications: 01:03 Drug: fentaNYL (PF) 50 mcg Route: IVP; Site: right hand; ll3 03:54 Follow up: Response: No adverse reaction ll3 02:03 Drug: NS 0.9% 1000 ml Route: IV; Rate: 1 bolus; Site: right hand; ll3 02:03 Drug: Ketamine 100 mg Route: IVP; Site: right hand; ll3 03:54 Follow up: Response: No adverse reaction 3 02:47 CANCELLED (Duplicate Order): Ketamine 100 mg IM once rt Medication: 03:53 VIS not applicable for this client. 3 Outcome: 03:30 Discharge ordered by . rt 03:53 Discharged to home via wheelchair. 3 03:53 Condition: stable 03:53 Discharge instructions given to patient, family, Instructed on discharge instructions, follow up and referral plans. Demonstrated understanding of instructions, follow-up care. 03:55 Patient left the ED. 3 Signatures: Dispatcher [employer] EDMS Bandar Mendoza, MEDICAL SUPPORT SPECIALIST-C MEDICAL SUPPORT SPECIALIST-Cla1 Margoth Jackson RN RN ll3 Jennyfer Huggins RN RN kd3 Daniel Shin MD MD rt Mary brooks RN RN pf1
[2022-03-31 04:07] VITALS: TEMP 97.8
[2022-03-31 04:14] VITALS: BP 111/64; O2SAT 98
--- NOTE | 2022-03-31 14:14 | RAD REPORT ---
EXAM DESCRIPTION: Shoulder Left 2 View 03/31/2022 1:23 AM COUNTER STACKER CLINICAL HISTORY: 76 years, Male, PAIN COMPARISON: None FINDINGS: 2 X-ray views of the left shoulder (internal rotation and Y views) were performed. There is anterior inferior dislocation. Slight deformity within the posterior superior aspect of the humeral head could correspond to a Hill-Sachs deformity perhaps related to chronic rotator cuff injur y. No gross soft tissue abnormality is identified. There are no gross intraosseous lesions. The A C joint demonstrate degenerative changes. There is no evidence for separation. IMPRESSION: Anterior inferior left shoulder dislocation. Electronically signed by: Mac Beckford MD 03/31/2022 1:24 AM COUNTER STACKER Due to temporary technical issues with the PACS/Fluency reporting system, reports are being signed by the in house radiologists without review as a courtesy to insure prompt reporting. The interpreting radiologist is fully responsible for the content of the report.
--- NOTE | 2022-03-31 15:29 | RAD REPORT ---
EXAM DESCRIPTION: Shoulder 1 View 03/31/2022 2:24 AM PHARMACIST IN CHARGE OWNER CLINICAL HISTORY: 76 years, Male, post reduction COMPARISON: 03/31/2021 performed at 1:05 AM FINDINGS: 3 X-ray views of the left shoulder (internal rotation, external rotation and Y views) were performed. There has been successful reduction of the previously described anterior inferior dislocation. Ther e are no gross intraosseous lesions. The AC joint demonstrate degenerative changes. There is no evide nce for separation. IMPRESSION: Successful reduction of the previously described anterior inferior dislocation. Electronically signed by: Mac Beckford MD 03/31/2022 2:25 AM PHARMACIST IN CHARGE OWNER Due to temporary technical issues with the PACS/Fluency reporting system, reports are being signed by the in house radiologists without review as a courtesy to insure prompt reporting. The interpreting radiologist is fully responsible for the content of the report.
== END 2022-03-31 03:55 | disposition home or self-care (01) ==
LOC: ER 00:37
PROC: 0RSKXZZ Reposition Left Shoulder Joint, External Approach (ICD-10-PCS; principal; 2022-03-31)
DX: S43.085A Other dislocation of left shoulder joint, initial encounter (principal); I10 Essential (primary) hypertension; E03.9 Hypothyroidism, unspecified; Z88.5 Allergy status to narcotic agent; Z88.6 Allergy status to analgesic agent; Z88.8 Allergy status to other drugs, medicaments and biological substances; Z91.048 Other nonmedicinal substance allergy status
CPT/HCPCS: 73020; 73030; 96375; 96374; 99284; 23655; J3010; J7030

== ENCOUNTER 2022-12-05 12:48 | Emergency (ER) | payer OTHER ==
--- OUTSIDE RECORDS SUMMARY | 2022-12-05 12:53 | XMS REPORT | Continuity of Care Document ---
:1945 Author Organization [facility] t Address [address] [place] [address] [address] [place] [address] Care Team Providers Name Role Phone Brendan Pantoja MD Primary Care Physician [phone] BRENDAN PANTOJA Attending Clinician Unavailable Doctor Unassigned, [place] Attending Clinician Unavailable Brendan Pantoja MD Attending Clinician Lab, Ang - Db Attending Clinician Unavailable Vaccine, Ang Db Cbc Fam Attending Clinician Unavailable JOSEPH FLORES Attending Clinician Unavailable Vaccine, [facility] Attending Clinician Unavailable Joseph Flroes DO Attending Clinician Nurse, [facility] Pob Immunization Attending Clinician Unavailable GRANT COCHRAN Attending Clinician Unavailable Pob1, Acute [facility] Attending Clinician Unavailable JAMIE RUIZ Attending Clinician Unavailable CRISTOFER KIMBLE Attending Clinician Unavailable JAMIE RUIZ Admitting Clinician Unavailable BRENDAN PANTOJA Admitting Clinician Unavailable Payers Payer Name Policy Type Policy Number Effective Date Expiration Date [place] [facility] [place] A \\T\\ [id number] 2008 B 00:00:00 TRACEY [id number] 2020 00:00:00 COMMERCIAL [id number] 2016 NON-CONTRACT 00:00:00 GENERIC Problems Condition Condition Condition Status Onset Resolution Last Treating Co mments Source Name Details Category Date Date Treatment Clinician Date End of End of Disease Active 2018-[address] [facility] battery battery 2-30 [facility] life of life of 00:00: Medical deep brain deep brain 00 Ce nter stimulator stimulator Essential Essential Disease Active 2014-02 Uni vers hypertensi hypertensi 0-20 it y of on on 00:00: [place] 00 Medical Branch Acquired Acquired Disease Active 2014-02 Unive rs hypothyroi hypothyroi 0-20 it y of dism dism 00:00: [place] [facility] 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 0-20 ity of syndrome syndrome 00:00: [place] [facility] Peripheral Peripheral Disease Recurre 2014-02 Univers neuropathi neuropathi nce 0-20 it y of c pain c pain 00:00: [place] 00 [facility] Essential Essential Disease Active [facility] and other and other 8-12 [facility] s specified specified 00:00: [facility] forms of forms of 00 Center tremor tremor Essential Essential Disease Active [facility] tremor tremor 8-12 [facility] 00:00: [facility] Center Allergies, Adverse Reactions, Alerts Allergy Allergy Status Severity Reaction(s) Onset Inactive Treating Comm ents Source Name Type Date Date Clinician PROPOXYP DRUG Active Med Rash 2014-02 Univers HENE 0-20 ity of N-ACETAM 00:00: [place] INOPHEN 00 Medical Branch HYDROCOD DRUG Active Med Other-Cmnt 2014-02 Univ ers ONE INGREDI 0-20 ity of 00:00: [place] 00 Medical Branch IODINE DRUG Active Med N/V 2014-02 Univers INGREDI 0-20 ity of 00:00: [place] 00 Medical Branch TRAMADOL DRUG Active Med Rash 2014-02 Univers HCL INGREDI 0-20 ity of 00:00: [place] 00 [facility] Propoxyp Propensi Active Rash 2014-02 Univer s hene ty to 0-20 ity of N-Acetam adverse 00:00: [place] inophen reaction 00 Medical [facility] Hydrocod Propensi Active Other - See 2014-02 U nivers one ty to comments 0-20 ity of adverse 00:00: [place] reaction 00 Medical Branch Iodine Propensi Active Nausea 2014-02 Sea food Univer s ty to and/or 0-20 related ity of adverse Vomiting 00:00: [place] reaction 00 Medical [facility] Tramadol Propensi Active Rash 2014-02 Univer s Hcl ty to 0-20 ity of adverse 00:00: [place] reaction 00 Medical [facility] ACETAMIN Allergy Active Med N\\T\\V 2014-[address] [facility] [address] OPHEN-CO 8-21 [facility] DEINE 00:00: Medical 00 Center Acetamin Drug Active Nausea And 2014-[address] [facility] ophen-Co Intolera Vomiting 8-21 Luke s deine nce 00:00: Medical 00 Center HYDROCOD Allergy Active Other 2014-[address] [facility] ONE-ACET 8-11 [facility] AMINOPHE 00:00: Medical N 00 Center IODINE Allergy Active N\\T\\V [address] [facility] AND 8-11 [facility] IODIDE 00:00: Medical CONTAINI 00 Center NG PRODUCTS SHELLFIS Allergy Active N\\T\\V 2014-[address] [facility] H 8-11 [facility] CONTAINI 00:00: Medical NG 00 Center PRODUCTS TRAMADOL Allergy Active Itching 2014-[address] [facility] -ACETAMI 8-11 [facility] NOPHEN 00:00: Medical 00 Center TRAMADOL Allergy Active Itching 2014-[address] [facility] [address] 8-11 [facility] 00:00: Medical 00 Center Propoxyp Drug Active Itching 2014-[address] [facility] [address] hene Allergy 8-11 [facility] N-Acetam 00:00: Medical inophen 00 Center Hydrocod Drug Active Other (See 2014-[address] one-Acet Intolera Comments) 8-11 burning Jenae kes aminophe nce 00:00: Medical n 00 Center Iodine Drug Active Nausea And 2014-[address] [facility] And Allergy Vomiting 8-11 [facility] Iodide 00:00: Medical Containi 00 Center ng Products Shellfis Drug Active Nausea And 2014-[address] [facility] h Allergy Vomiting 8-11 [facility] Containi 00:00: Medical ng 00 Center Products Tramadol Drug Active Itching 2014-[address] -Acetami Allergy 8-11 [facility] nophen 00:00: Medical 00 Center Tramadol Drug Active Itching 2014-[address] Allergy 8-11 [facility] 00:00: Medical 00 Center PROPOXYP Allergy Active Itching 2014-[address] [facility] HENE 8-11 [facility] N-ACETAM 00:00: Medical INOPHEN 00 [place] Social History Social Habit Start Date Stop Date Quantity Comments Source Cigarettes smoked 2022-08-09 2022-08-09 Univers ity of current (pack per 00:00:00 00:00:00 ) - Reported Branch Cigarette 2022-08-09 2022-08-09 University of pack-years 00:00:00 00:00:00 [facility] Tobacco use and 2022-08-09 2022-08-09 Smokeless Universit y of exposure 00:00:00 00:00:00 tobacco non-user [facility] Exposure to 2022-01-29 2022-02-08 Not sure University SARS-CoV-2 (event) 00:00:00 12:41:00 [facility] Alcohol intake 2019-02-25 2019-02-[address] [facility] Vamsi es 00:00:00 00:00:00 non-drinker of Medical nter alcohol (finding) Tobacco Comment 2014-10-06 2014-10-06 quit smoking [address] [facility] 00:00:00 00:00:00 yrs ago [facility] History of tobacco 1974-12-15 Cigarette Smoker University of use 00:00:00 [facility] Sex Assigned At [address] [address] Jenae kes 00:00:00 00:00:00 [facility] Smoking Status Start Date Stop Date Source Ex-smoker 2022-08-09 00:00:00 2022-08-09 00:00:00 [facility] Medications Ordered Filled Start Stop Current Ordering Indication Dosage Frequency Signature Comments Components Source Medication Medication Date Date Medication? Clinician (SIG) Name Name hydroCHLORO 2021-02 Yes [id number] 25mg Take 1 Univers thiazide 25 2-14 tablet by ity of mg tablet 00:00: mouth in [facility] 00 the Medical morning. Branch lisinopriL 2021-02 Yes [id number] 20mg Take 1 U nivers 20 mg 2-14 tablet by ity of tablet 00:00: mouth in [place] 00 the Medical morning Branch and 1 tablet in the evening. levothyroxi 2021-02 Yes [id number] 125ug Take 1 Univers ne 125 mcg 2-14 tablet by ity of tablet 00:00: mouth [place] 00 every Medical morning. Branch hydroCHLORO 2021-02 Yes [id number] 25mg Take 1 Univers thiazide 25 2-14 tablet by ity of mg tablet 00:00: mouth in [facility] 00 the Medical morning. Branch lisinopriL 2021-02 Yes [id number] 20mg Take 1 U nivers 20 mg 2-14 tablet by ity of tablet 00:00: mouth in [place] 00 the Medical morning Branch and 1 tablet in the evening. levothyroxi 2021-02 Yes [id number] 125ug Take 1 Univers ne 125 mcg 2-14 tablet by ity of tablet 00:00: mouth [place] 00 every Medical morning. Branch hydroCHLORO 2021-02 Yes [id number] 25mg Take 1 Univers thiazide 25 2-14 tablet by ity of mg tablet 00:00: mouth in [facility] 00 the Medical morning. Branch lisinopriL 2021-02 Yes [id number] 20mg Take 1 U nivers 20 mg 2-14 tablet by ity of tablet 00:00: mouth in [place] 00 the Medical morning Branch and 1 tablet in the evening. levothyroxi 2021-02 Yes [id number] 125ug Take 1 Univers ne 125 mcg 2-14 tablet by ity of tablet 00:00: mouth [place] 00 every Medical morning. Branch hydroCHLORO 2021-02 Yes [id number] 25mg Take 1 Univers thiazide 25 2-14 tablet by ity of mg tablet 00:00: mouth in [facility] 00 the Medical morning. Branch lisinopriL 2021-02 Yes [id number] 20mg Take 1 U nivers 20 mg 2-14 tablet by ity of tablet 00:00: mouth in [place] 00 the Medical morning Branch and 1 tablet in the evening. levothyroxi 2021-02 Yes [id number] 125ug Take 1 Univers ne 125 mcg 2-14 tablet by ity of tablet 00:00: mouth [place] 00 every Medical morning. Branch hydroCHLORO 2021-02 Yes [id number] 25mg Take 1 Univers thiazide 25 2-14 tablet by ity of mg tablet 00:00: mouth in [facility] 00 the Medical morning. Branch lisinopriL 2021-02 Yes [id number] 20mg Take 1 U nivers 20 mg 2-14 tablet by ity of tablet 00:00: mouth in [place] 00 the Medical morning Branch and 1 tablet in the evening. levothyroxi 2021-02 Yes [id number] 125ug Take 1 Univers ne 125 mcg 2-14 tablet by ity of tablet 00:00: mouth [place] 00 every Medical morning. Branch hydroCHLORO 2021-02 Yes [id number] 25mg Take 1 Univers thiazide 25 2-14 tablet by ity of mg tablet 00:00: mouth in [facility] 00 the Medical morning. Branch lisinopriL 2021-02 Yes [id number] 20mg Take 1 U nivers 20 mg 2-14 tablet by ity of tablet 00:00: mouth in [place] 00 the Medical morning Branch and 1 tablet in the evening. levothyroxi 2021-02 Yes [id number] 125ug Take 1 Univers ne 125 mcg 2-14 tablet by ity of tablet 00:00: mouth [place] 00 every Medical morning. Branch hydroCHLORO 2021-02 Yes [id number] 25mg Take 1 Univers thiazide 25 2-14 tablet by ity of mg tablet 00:00: [place] the Medical morning. Branch lisinopriL 2021-02 Yes [id number] 20mg Take 1 U nivers 20 mg 2-14 tablet by ity of tablet 00:00: mouth in [place] 00 the Medical morning Branch and 1 tablet in the evening. levothyroxi 2021-02 Yes [id number] 125ug Take 1 Univers ne 125 mcg 2-14 tablet by ity of tablet 00:00: mouth [place] 00 every Medical morning. Branch hydroCHLORO 2021-02 Yes [id number] 25mg Take 1 Univers thiazide 25 2-14 tablet by ity of mg tablet 00:00: [place] 00 the Medical morning. Branch lisinopriL 2021-02 Yes [id number] 20mg Take 1 U nivers 20 mg 2-14 tablet by ity of tablet 00:00: mouth in [place] 00 the Medical morning Branch and 1 tablet in the evening. levothyroxi 2021-02 Yes [id number] 125ug Take 1 Univers ne 125 mcg 2-14 tablet by ity of tablet 00:00: mouth [place] 00 every Medical morning. Branch hydroCHLORO 2021-0 Yes [id number] 25mg Take 1 Univers thiazide 25 6-14 tablet by ity of mg tablet 00:00: mouth [place] 00 daily. Medical Branch lisinopriL 2021-0 Yes [id number] 20mg Take 1 U nivers 20 mg 6-14 tablet by ity of tablet 00:00: mouth 2 [place] 00 (two) Medical times Branch daily. hydroCHLORO 2021-0 Yes [id number] 25mg Take 1 Univers thiazide 25 6-14 tablet by ity of mg tablet 00:00: mouth [place] 00 daily. Medical Branch lisinopriL 2021-0 Yes [id number] 20mg Take 1 U nivers 20 mg 6-14 tablet by ity of tablet 00:00: mouth 2 [place] 00 (two) Medical times Branch daily. hydroCHLORO 2021- No [id number] 25mg Take 1 Univers thiazide 25 6-14 12-14 tablet by it y of mg tablet 00:00: 00:00 mouth [place] 00 :00 daily. Medical Branch lisinopriL 2021- No [id number] 20mg Take 1 Univers 20 mg 6-14 12-14 tablet by ity of tablet 00:00: 00:00 mouth 2 [place] 00 :00 (two) Medical times Branch daily. hydroCHLORO 2021- No [id number] 25mg Take 1 Univers thiazide 25 6-14 12-14 tablet by it y of mg tablet 00:00: 00:00 mouth [place] 00 :00 daily. Medical Branch lisinopriL 2021- No [id number] 20mg Take 1 Univers 20 mg 6-14 12-14 tablet by ity of tablet 00:00: 00:00 mouth 2 [place] 00 :00 (two) Medical times Branch daily. LEVOTHYROXI Yes TAKE 1 Univ ers NE 125 mcg 2-04 TABLET BY ity of tablet 00:00: MOUTH IN [place] 00 THE Medical MORNING Branch LEVOTHYROXI Yes TAKE 1 Univ ers NE 125 mcg 2-04 TABLET BY ity of tablet 00:00: MOUTH IN [place] 00 THE Medical MORNING Branch LEVOTHYROXI 2021- No TAKE 1 Uni vers NE 125 mcg 2-04 12-14 TABLET BY ity of tablet 00:00: 00:00 MOUTH IN [place] 00 :00 THE Medical MORNING Branch LEVOTHYROXI 2021- No TAKE 1 Uni vers NE 125 mcg 2-04 12-14 TABLET BY ity of tablet 00:00: 00:00 MOUTH IN [place] 00 :00 THE Medical MORNING Branch lisinopriL- 2020-02- No [id number] 2{tbl} Take 2 Univers hydrochloro 2-13 06-14 tablets by i ty of thiazide 00:00: 00:00 mouth [place] 20-12.5 mg 00 :00 daily. Medical per tablet Branch levothyroxi 2020-02- No [id number] TAKE 1 Univers ne 112 mcg 2-13 06-14 TABLET BY ity of tablet 00:00: 00:00 MOUTH IN [place] 00 :00 THE Medical MORNING Branch aspirin 2019- Yes 81mg Take 81 mg Univ ers (ASPIRIN 2-09 by mouth ity of LOW DOSE) 14:29: daily. [place] 81 mg EC 33 Medical tablet Branch aspirin 2019-02 Yes 81mg Take 81 mg Univ ers (ASPIRIN 2-09 by mouth ity of LOW DOSE) 14:29: daily. [place] 81 mg EC 33 Medical tablet Branch aspirin 2019- Yes 81mg Take 81 mg Univ ers (ASPIRIN 2-09 by mouth ity of LOW DOSE) 14:29: daily. [place] 81 mg EC 33 Medical tablet Branch aspirin 2019-02 Yes 81mg Take 81 mg Univ ers (ASPIRIN 2-09 by mouth ity of LOW DOSE) 14:29: daily. [place] 81 mg EC 33 Medical tablet Branch aspirin 2019- Yes 81mg Take 81 mg Univ ers (ASPIRIN 2-09 by mouth ity of LOW DOSE) 14:29: daily. [place] 81 mg EC 33 Medical tablet Branch aspirin 2019- Yes 81mg Take 81 mg Univ ers (ASPIRIN 2-09 by mouth ity of LOW DOSE) 14:29: daily. [place] 81 mg EC 33 Medical tablet Branch aspirin 2019-02 Yes 81mg Take 81 mg Univ ers (ASPIRIN 2-09 by mouth ity of LOW DOSE) 14:29: daily. [place] 81 mg EC 33 Medical tablet Branch aspirin 2019- Yes 81mg Take 81 mg Univ ers (ASPIRIN 2-09 by mouth ity of LOW DOSE) 14:29: daily. [place] 81 mg EC 33 Medical tablet Branch aspirin 2019- Yes 81mg Take 81 mg Univ ers (ASPIRIN 2-09 by mouth ity of LOW DOSE) 14:29: daily. [place] 81 mg EC 33 Medical tablet Branch aspirin 2019-02 Yes 81mg Take 81 mg Univ ers (ASPIRIN 2-09 by mouth ity of LOW DOSE) 14:29: daily. [place] 81 mg EC 33 Medical tablet Branch levothyroxi 2018-02 Yes 112ug QD Take [address] ne 2-30 mcg by [facility] (SYNTHROID, 18:54: mouth Medic al LEVOTHROID) 14 daily. Center 112 MCG tablet gabapentin 2018-02 Yes 600mg Q.5D Take [address] (NEURONTIN) 2-30 mg by [facility] 300 MG 18:54: mouth 2 Medical capsule 14 (two) Center times daily 2 tabs. pramipexole 2018-02 Yes .125mg QD Take 0.[address] (MIRAPEX) 2-30 mg by [facility] 0.125 MG 18:54: mouth Medical tablet 14 nightly . [place] lisinopril- 2018-02 Yes 1{tbl} QD Take [address] hydroCHLORO 2-30 tablet by Vamsi es thiazide 18:54: mouth Medical (PRINZIDE,Z 14 daily. [place] ESTORETIC) 20-25 mg per tablet levothyroxi 2018-02 Yes 112ug QD Take [address] ne 2-30 mcg by [facility]ukes (SYNTHROID, 18:54: mouth Medic al LEVOTHROID) 14 daily. [place] 112 MCG tablet gabapentin 2018-02 Yes 600mg Q.5D Take [address] (NEURONTIN) 2-30 mg by [facility] 300 MG 18:54: mouth 2 Medical capsule 14 (two) Center times daily 2 tabs. pramipexole 2018-02 Yes .125mg QD Take 0.[address] (MIRAPEX) 2-30 mg by [facility]ukes 0.125 MG 18:54: mouth Medical tablet 14 nightly . [place] lisinopril- 2018-02 Yes 1{tbl} QD Take [address] hydroCHLORO 2-30 tablet by Vamsi es thiazide 18:54: mouth Medical (PRINZIDE,Z 14 daily. [place] [facility] 20-25 mg per tablet pramipexole Yes 1mg 1 mg at Uni vers (MIRAPEX) 1 9-24 bedtime. ity of mg tablet 00:00: [address] gabapentin Yes 300mg [address] [facility] vers (NEURONTIN) 11-19 ity of 300 mg 00:00: [place] capsule [facility] pramipexole Yes 1mg 1 mg at Uni vers (MIRAPEX) 1 9-24 bedtime. ity of mg tablet 00:00: [address] gabapentin Yes 300mg 300 mg. Uni vers (NEURONTIN) 24 ity of 300 mg 00:00: [place] capsule [facility] pramipexole Yes 1mg 1 mg at Uni vers (MIRAPEX) 1 9-24 bedtime. ity of mg tablet 00:00: [place] 00 Medical Branch gabapentin 2015-0 Yes 300mg 300 mg. Uni vers (NEURONTIN) 11-19 ity of 300 mg 00:00: [place] capsule 00 Medical Branch pramipexole 2015-0 Yes 1mg 1 mg at Uni vers (MIRAPEX) 1 9-24 bedtime. ity of mg tablet 00:00: Medical Branch gabapentin 2015-0 Yes 300mg 300 mg. Uni vers (NEURONTIN) 11-19 ity of 300 mg 00:00: [place] capsule Medical Branch pramipexole 2015-0 Yes 1mg 1 mg at Uni vers (MIRAPEX) 1 924 bedtime. ity of mg tablet 00:00: Medical Branch gabapentin 2015-0 Yes 300mg 300 mg. Uni vers (NEURONTIN) 11-19 ity of 300 mg 00:00: [place] capsule Medical Branch pramipexole 2015-0 Yes 1mg 1 mg at Uni vers (MIRAPEX) 1 924 bedtime. ity of mg tablet 00:00: Medical Branch gabapentin 2015-0 Yes 300mg 300 mg. Uni vers (NEURONTIN) 11-19 ity of 300 mg 00:00: [place] capsule Medical Branch pramipexole 2015-0 Yes 1mg 1 mg at Uni vers (MIRAPEX) 1 24 bedtime. ity of mg tablet 00:00: Medical Branch gabapentin 2015-0 Yes 300mg 300 mg. Uni vers (NEURONTIN) 11-19 ity of 300 mg 00:00: [place] capsule Medical Branch pramipexole 2015-0 Yes 1mg 1 mg at Uni vers (MIRAPEX) 1 924 bedtime. ity of mg tablet 00:00: Medical Branch gabapentin 2015-0 Yes 300mg 300 mg. Uni vers (NEURONTIN) 24 ity of 300 mg 00:00: [place] capsule Medical Branch pramipexole 2015-0 Yes 1mg 1 mg at Uni vers (MIRAPEX) 1 9-24 bedtime. ity of mg tablet 00:00: Medical Branch gabapentin 2015-0 Yes 300mg 300 mg. Uni vers (NEURONTIN) 11-19 ity of 300 mg 00:00: [place] capsule 00 Medical Branch pramipexole 2015-0 Yes 1mg 1 mg at Uni vers (MIRAPEX) 1 9-24 bedtime. ity of mg tablet 00:00: [place] 00 Medical Branch gabapentin 2015-0 Yes 300mg 300 mg. Uni vers (NEURONTIN) 11-19 ity of 300 mg 00:00: [place] capsule 00 Medical Branch Vital Signs Vital Name Observation Time Observation Value Comments Source Systolic blood 2022-08-09 18:07:00 152 mm[Hg] Univer sity of pressure [facility] Diastolic blood 2022-08-09 18:07:00 83 mm[Hg] Unive rsity of [facility] Heart rate 2022-08-09 18:06:00 74 /min Universi ty of [facility] Body weight 2022-08-09 18:06:00 96.616 kg Universi ty of [facility] BMI 2022-08-09 18:06:00 28.10 kg/m2 Universi ty of [facility] Systolic blood 2022-02-08 19:11:00 132 mm[Hg] Univer sity of [facility] Diastolic blood 2022-02-08 19:11:00 84 mm[Hg] Unive rsity of [facility] Heart rate 2022-02-08 19:11:00 62 /min Universi ty of [facility] Body temperature 2022-02-08 19:11:00 36.56 Peace Univ ersity of [facility] Body height 2022-02-08 19:11:00 185.4 cm Universi ty of [facility] Body weight 2022-02-08 19:11:00 101.152 kg Universi ty of [facility] BMI 2022-02-08 19:11:00 29.42 kg/m2 Universi ty of [facility] Systolic blood 2021-08-09 18:10:00 156 mm[Hg] Univer sity of pressure [facility] Diastolic blood 2021-08-09 18:10:00 88 mm[Hg] Unive rsity of [facility] Heart rate 2021-08-09 18:00:00 86 /min Universi ty of [facility] Body height 2021-08-09 18:00:00 185.4 cm Universi ty of [facility] Body weight 2021-08-09 18:00:00 102.513 kg Universi ty of [facility] Branch BMI 2021-08-09 18:00:00 29.82 kg/m2 [facility] Procedures Procedure Date / Time Performed Performing Clinician Sourc e EXTERNAL PROVIDER 2022-08-30 05:01:00 Doctor Unassigned, No Univ ersity of [place] RECORDS Name Medical [place] EXTERNAL PROVIDER 2022-04-19 06:01:00 Doctor Unassigned, No Univ ersity of [place] RECORDS Name [facility] EXTERNAL PROVIDER 2022-03-16 06:01:00 Doctor Unassigned, No Univ ersity of [place] RECORDS Name [facility] SARS-COV-2 COVID-19 2021-11-18 18:33:03 Doctor Unassigned, No Un iversity [facility] VACCINE 18 YRS+, Name [facility] BIVALENT 0.5ML, IM (MODERNA BOOSTER) Encounters Start End Encounter Admission Attending Care Care Encounter Source Date/Time Date/Time Type Type Clinicians Facility Department ID 2023-02-08 2023-02-08 [facility] [id number] Univers 13:00:00 13:00:00 BRENDAN moya [facility] 2022-08-30 2022-08-30 Orders Doctor OLEARY [id number] Univers 00:00:00 00:00:00 Only Unassigned, CELIA [id number] ity of [place] [facility] [id number] Barrera as [phone] [address] 2022-08-09 2022-08-09 Outpatient Rico PANTOJA [facility] [id number] Univers 13:00:00 13:33:44 BRENDAN moya [facility] 2022-08-09 2022-08-09 [facility] [id number] Univers 13:00:00 13:15:00 Visit [facility] [id number] it y of [place] [facility] [id number] Barrera as JHONATAN?BLEA [phone] [address] MEDICAL OFFICE BUILDING 2022-04-19 2022-04-19 Orders Doctor OLEARY [id number] Univers 00:00:00 00:00:00 Only Unassigned, CELIA [id number] ity of [place] [facility] [id number] Barrera as [phone] [address] 2022-03-16 2022-03-16 Orders Doctor MAMTA [id number] Univers 00:00:00 00:00:00 Only Unassigned, CELIA [id number] ity of [place] [facility] [id number] Barrera as [phone] [address] 2022-02-08 2022-02-08 Plant Attendant Lab, Ang - Db [facility] [id number] Univers 13:30:00 13:45:00 Visit Brendan Pantoja [facility] [id number] .[id number] ity of [facility]RA[facility] [id number] [place]rera as JHONATAN?BLEA [phone] [facility] [address] [facility] OFFICE [facility] 2022-02-08 2022-02-08 [facility] [id number] Univers 13:30:00 13:30:00 [facility] 2022-02-08 2022-02-08 Office [facility] [id number] Univers 13:00:00 13:30:00 Visit [facility] [id number] it y of [place] [id number] Barrera as JHONATAN?BLEA [phone] [address] OFFICE [facility] 2021-11-18 2021-11-18 Imm/Inj Vaccine, Ang Db [facility] [id number]. [id number] Univers 13:10:00 13:20:00 Visit Brendan Pantoja [facility] [id number] .10 ity of LILIBETHABRAZO [facility] [id number] Barrera as JHONATAN?BLEA [phone] [address] OFFICE [facility] 2021-11-18 2021-11-18 [facility] [id number] Univers 13:10:00 13:10:00 BRENDAN [facility] 2021-08-09 2021-08-09 Office [facility] [id number] Univers 13:00:00 13:15:00 Visit [facility] [id number] it y of [place] [id number] Barrera as JHONATAN?BLEA [phone] [facility] [address] [place] [address] OFFICE [facility] 2021-08-09 2021-08-09 Outpatient Rico PANTOJA [facility] [id number] Univers 13:00:00 13:00:00 BRENDAN [facility] [place] [facility] 2021-08-09 2021-08-09 Outpatient Rico PANTOJA [facility] [id number] Univers 13:00:00 13:00:00 BRENDAN [facility] [place] [facility] 2021-06-03 2021-06-03 Outpatient Rico FLORES [facility] [id number] Univers 16:00:00 16:00:00 JOSEPH [facility] [place] [facility] 2021-06-03 2021-06-03 Imm/Inj Vaccine, St. [facility] 1.2.840.114 [id number] Univers 16:00:00 16:00:00 Visit Joseph [facility] 350.1.13 .10 ity of [place] [phone] [address] 2021-03-31 2021-03-31 Refill [facility] 1.2.840.114 [id number] Univers 00:00:00 00:00:00 [facility] [id number] it y of [place] [id number] Barrera as JHONATAN?BLEA [phone] [facility] [address] 2021-02-08 2021-02-08 Telephone [facility] 1.2.840.114 [id number] Univers 00:00:00 00:00:00 [facility] [id number] it y of [place] 4.2.7.2.686 Barrera as JHONATAN?BLEA [phone] [address] 2021-02-07 2021-02-07 Outpatient Rico PANTOJA [facility] [id number] Univers 10:30:00 10:30:00 BRENDAN humberto [facility] 2021-02-07 2021-02-07 Plant Attendant Lab, Ang - Db [facility] 1.2.840.1 [id number] Univers 09:21:45 09:36:45 Visit Brendan Pantoja qamar [facility] 350.1.13 .10 ity of [place] 4.2.7.2.686 Barrera as JHONATAN?BLEA [phone] Wy alexandra BLUM 353 [facility] OFFICE [facility] 2021-02-07 2021-02-07 Outpatient R KIT [facility] [id number] Univers 09:15:00 09:15:00 BRENDAN hussainhumberto [facility] 2021-02-07 2021-02-07 Office Kit [facility] 1.2.840.114 [id number] Univers 08:49:26 09:04:26 Visit [facility] 350.1.13.10 it y of [place] 4.2.7.2.686 Barrera as JHONATAN?BLEA [phone] Wy alexandra BRADFORDRENATO 044 [facility] OFFICE [facility] 2021-02-07 2021-02-07 Orders Doctor MAMTA 1.2.840.114 [id number] Univers 00:00:00 00:00:00 Only Unassigned, CELIA 350.1.13.10 ity of [place] [facility] 4.2.7.2.686 Barrera as [phone] [address] 2020-12-20 2020-12-20 Outpatient R MARK [facility] [id number] Univers 14:20:00 14:20:00 JOSEPH moya [facility] 2020-12-20 2020-12-20 Imm/Inj Nurse, Adc Pob Immunization [facility] 1.2.840.114 [id number] Univers 13:43:04 13:43:20 Visit Joseph Flores 350.1.13 .10 it[place] of [place] [phone] Me alexandra frey 421 [facility] 2020-11-20 2020-11-20 Refill Kit [facility] 1.2.840.114 [id number] Univers 00:00:00 00:00:00 [facility] [id number] it y of [place] 4.2.7.2.686 Barrera as Professio [phone] Wy dical [address] Office Building [facility] 2020-10-30 2020-10-30 Orders Doctor MAMTA 1.2.840.114 [id number] Univers 00:00:00 00:00:00 Only Unassigned, CELIA 350.1.13.10 ity of [place] [facility] 4.2.7.2.686 Barrera as [phone] [address] 2020-04-05 2020-04-05 [facility] [id number] Univers 09:50:00 09:50:00 GRANT [facility] 2020-03-08 2020-03-08 [facility] [id number] Univers 10:50:00 10:50:00 GRANT [facility] 2020-02-04 2020-02-04 [facility] [id number] Univers 13:30:00 13:30:00 BRENDAN [facility] 2019-06-11 2019-06-11 Orders Doctor OLEARY 1.2.840.114 [id number] 00:00:00 00:00:00 Only Unassigned, CELIA 350.1.13.10 [place] [facility] 4.2.7.2.686 [phone] [id number] 2019-06-09 2019-06-09 Telephone Po, [facility]3] 1.2.840.114 [id number] 00:00:00 00:00:00 [facility] 350.1.13.10 [place] 4.2.7.2.686 Professio [phone] nal [facility] Office [facility] 2019-06-09 2019-06-09 [facility] 1.2.840.114 [id number] 00:00:00 00:00:00 Brendan Escobedo 350.1.13.10 [place] 4.2.7.2.686 Professio [phone] [address] 2019-03-12 2019-03-12 Orders Doctor MAMTA 1.2.840.114 [id number] 00:00:00 00:00:00 Only Unassigned, CELIA 350.1.13.10 [place] [facility] 4.2.7.2.686 [id number] [id number] 2019-02-13 2019-02-13 Outpatient R KIT [facility] [id number] Univers 11:15:41 23:59:00 [facility] 2019-02-13 2019-02-13 Outpatient R KIT [facility] [id number] Univers 11:15:41 23:59:00 [facility] 2019-02-06 2019-02-06 Outpatient R SHYANNE [facility] [id number] Univers 14:30:00 14:29:27 [facility] Test Description Test Time Test Comments Results Result Sour e Comments TISSUE EXAM 2019-02-28 Surgical Pathology 08:16:00 Report Case: [id number] Authorizing Provider: Jamie Ruiz MD Collected: 02/24/2019 1425 Ordering Location: [facility] Received: 02/24/2019 1439 SERVICES Pathologist: Prateek Gardner MD Specimen: Explant, explanted battery NEUROSURGICAL HARDWARE, REMOVAL:DEEP BRAIN STIMULATOR BATTERY (GROSS EXAMINATION ONLY) Signing Pathologist Direct Phone Line: [phone] y signed by Prateek Gardner MD on 02/28/2019 at 8:16 [id number] of battery life of deep brain stimulatorExplant Received fresh labeled with the patient's name, accession number and "explanted battery" is a 6.3 x 4.8 x 1.3 cm, metallic, garcia, rectangular piece of hardware that contains the following inscription:"[employer]" "ACTIVA PC""SN [id number]"A gross photograph is taken. No sections are submitted. This case is for gross examination only. PA/ew
--- NOTE | 2022-12-05 13:36 | RAD REPORT ---
EXAM DESCRIPTION: CT - CTHCSPWOC - 12/05/2022 1:04 pm CLINICAL HISTORY: TRAUMA COMPARISON: Head C Spine Mpr Wo Con dated 07/18/2019 TECHNIQUE: Axial thin cut noncontrast CT images of the head were obtained. Axial thin cut noncontrast CT images of the cervical spine were obtained. Multiplanar reformatted images were generated and reviewed. All CT scans are performed using dose optimization technique as appropriate and may include automated exposure control or mA/KV adjustment according to patient size. FINDINGS: CT HEAD WITHOUT CONTRAST: No acute hemorrhage, hydrocephalus or extra-axial collection is identified.Sequelae of bilateral deep brain stimulator electrode placement, without evidence of complications. Some resulting in streak ar tifact which limits evaluation.No areas of brain edema or midline shift. The paranasal sinuses show scattered small mucous retention cysts notably in the maxillary sinuses.Th e calvarium is intact. CT CERVICAL SPINE WITHOUT CONTRAST: No fracture or subluxation.Stable moderate anterior translation of C1 relative to C2, with some widen ing of the atlanto odontoid are well, and mild pannus formation, with up to moderate central canal na rrowing, predominantly at the level of the posterior C1 arch. Other chronic facet degenerative change s, mild uncovertebral joint spurring, contributing to mild degrees of neural foraminal narrowing bila terally at C3-4, C4-5, and C5-6.No prevertebral soft tissues swelling is identified. IMPRESSION: No acute traumatic intracranial or cervical spine findings.Deep brain stimulator electro lizzy in place. Stable cervical spine degenerative changes as above, with stable moderate anterior translation of C1 relative to C2, resulting in moderate central canal stenosis.
--- NOTE | 2022-12-05 13:49 | RAD REPORT ---
EXAM DESCRIPTION: Shoulder 1 View - 12/05/2022 1:15 pm CLINICAL HISTORY: DEFORMITY COMPARISON: Shoulder 1 View dated 03/31/2022 TECHNIQUE: Single view of the right shoulder was obtained. FINDINGS: There is no acute displaced fracture. Anteroinferior shoulder dislocation is noted on this single view. AC joint shows moderate degenerative changes. No acute or suspicious findings. IMPRESSION: Anteroinferior Shoulder dislocation.
[2022-12-05] MEDS ORDERED: KETAMINE HCL IN 0.9 % NACL 50 MG/5 ML SYRINGE IV ONE (14:20)
[2022-12-05] MEDS ORDERED: propofoL 200 MG/20 ML VIAL IV ONE (14:46)
--- NOTE | 2022-12-05 15:51 | RAD REPORT ---
EXAM DESCRIPTION: Shoulder 1 View - 12/05/2022 2:46 pm CLINICAL HISTORY: POST REDUCTION COMPARISON: Shoulder 1 View dated 12/05/2022 TECHNIQUE: Single view of the left shoulder. FINDINGS: Improved alignment of the shoulder joint following closed reduction. Some cortical irregul arity/ depression along the medial aspect of the humerus, may represent the depressed fracture. AC isela int moderate degenerative changes again seen. . No acute or suspicious findings. IMPRESSION: Improved alignment of the shoulder joint following closed reduction. Possible depressed fracture at the medial aspect of the humeral head.
--- NOTE | 2022-12-05 16:39 | EDPHYS ---
Physician Documentation [facility] Name: Lance David Age: 76 yrs Sex: Male : 1945 Arrival Date: 12/05/2022 Time: 12:48 Bed 3 Private MD: ED Physician Daniel Shin HPI: 12/05 13:25 This 76 yrs old Male presents to ER via EMS with complaints of Left shoulder pain. rt 13:25 Patient presents to the ED with mechanical fall and reported shoulder dislocation. rt Patient slipped and fell. He states that he did hit his head but denies loss of consciousness. Denies preceding symptoms including syncope. He states that he believes that he dislocated his shoulder again, has done so previously. Denies other acute complaints, symptoms are moderate severity, aching nature, nonradiating, no other aggravating elevating factors.. Historical: - Allergies: 12:57 ACETAMINOPHEN; ap3 12:57 Codeine; ap3 12:57 hydrocodone bitartrate (bulk); ap3 12:57 Iodine; ap3 12:57 propoxyphene napsylate; ap3 12:57 Tramadol HCl; ap3 - PMHx: 12:57 ESSENTIAL TREMORS; Hypertension; Hypothyroidism; ap3 - Immunization history:: Client reports receiving the 2nd dose of the Covid vaccine. - Social history:: Smoking status: Patient denies any tobacco usage or history of. - Family history:: not pertinent. ROS: 13:25 Constitutional: Negative for fever, chills, and weight loss, Cardiovascular: Negative rt for chest pain, palpitations, and edema, Respiratory: Negative for shortness of breath, cough, wheezing, and pleuritic chest pain, Abdomen/GI: Negative for abdominal pain, nausea, vomiting, diarrhea, and constipation, Skin: Negative for injury, rash, and discoloration, Neuro: Negative for headache, weakness, numbness, tingling, and seizure, Psych: Negative for depression, anxiety, suicide ideation, homicidal ideation, and hallucinations, 13:25 MS/extremity: Positive for Dislocation, pain, Exam: 13:25 Constitutional: This is a well developed, well nourished patient who is awake, alert, rt and in no acute distress. Head/Face: Normocephalic, atraumatic. Cardiovascular: Regular rate and rhythm with a normal S1 and S2. No gallops, murmurs, or rubs. Normal PMI, no JVD. No pulse deficits. Respiratory: Lungs have equal breath sounds bilaterally, clear to auscultation and percussion. No rales, rhonchi or wheezes noted. No increased work of breathing, no retractions or nasal flaring. Abdomen/GI: Soft, non-tender, with normal bowel sounds. No distension or tympany. No guarding or rebound. No evidence of tenderness throughout. Skin: Warm, dry with normal turgor. Normal color with no rashes, no lesions, and no evidence of cellulitis. Neuro: Awake and alert, GCS 15, oriented to person, place, time, and situation. Cranial nerves II-XII grossly intact. Motor strength 5/5 in all extremities. Sensory grossly intact. Cerebellar exam normal. Normal gait. Psych: Awake, alert, with orientation to person, place and time. Behavior, mood, and affect are within normal limits. 13:25 Chest/axilla: DBS generator anterior chest. 13:25 Musculoskeletal/extremity: Apparent shoulder dislocation to the left arm, tenderness at that area, no areas of numbness including the axillary, median nerve distributions, pulses, motor, sensation intact. Vital Signs: 12:55 BP 118 / 65; Pulse 67; Resp 18; Temp 98.2; Pulse Ox 92% on R/A; Weight 93.89 kg; Pain ap3 8/10; 14:11 BP 136 / 74; Pulse 64; Pulse Ox 97% on 2 lpm NC; ap3 14:46 BP 146 / 83; Pulse 77; Resp 16; Pulse Ox 99% on 3 lpm NC; ap3 15:34 BP 146 / 83; Pulse 76; Resp 18; Pulse Ox 100% ; ap3 16:24 BP 132 / 70; Pulse 75; Resp 17; Pulse Ox 100% ; ap3 12:55 Pain Scale: Adult ap3 Procedures: 15:54 Reduction: of the left shoulder, using traction, manipulation, Immobilized with rt shoulder immobilizer. Patient tolerated well. Post reduction film - reveals normal alignment. Moderate sedation: Pre-procedure assessment: the patient has been NPO 12 hour(s) prior to arrival, ASA physical classification: II - mild/mod systemic disease that does not interfere with daily routines, Airway assessment: able to hyperextend neck, able to maintain airway, can open mouth without difficulty, Mallampati classification of tongue size: I - faucial pillars, soft palate, and uvula can be fully visualized, Monitoring during procedure: Medications employed: Ketamine, 125 mg(s), 20 mg propofol. MDM: 12:51 Patient medically screened. rt 16:41 Differential diagnosis: dislocation, closed fracture. Data reviewed: vital signs, rt nurses notes, radiologic studies. Independent interpretation of the following test(s) in the Emergency Department X-Ray: My interpretation is Dislocation syndrome interpretation of x-ray images. Care significantly affected by the following chronic conditions: Hypertension. Counseling: I had a detailed discussion with the patient and/or guardian regarding the historical points, exam findings, and any diagnostic results supporting the discharge/admit diagnosis, radiology results, the need for outpatient follow up. Response to treatment: the patient's symptoms have resolved after treatment. 12/05 12:52 Order name: CT Head C Spine; Complete Time: 14:02 rt 12/05 13:17 Order name: Shoulder 1 View; Complete Time: 14:02 EDMS 12/05 14:33 Order name: Shoulder 1 View; Complete Time: 15:53 EDMS 12/05 14:05 Order name: Conscious Sedation; Complete Time: 14:06 aa5 Administered Medications: 14:10 Drug: Ketamine IVP 75 mg IVP once Route: IVP; Site: right antecubital; ap3 17:07 Follow up: Response: No adverse reaction ap3 14:15 Drug: Ketamine IVP 25 mg IVP once Route: IVP; Site: right antecubital; ap3 17:07 Follow up: Response: No adverse reaction ap3 14:28 Drug: Ketamine IVP 25 mg IVP once Route: IVP; Site: right antecubital; ap3 17:07 Follow up: Response: No adverse reaction ap3 14:34 Drug: Propofol IVP 20 mg IVP once Route: IVP; Site: right antecubital; ap3 17:07 Follow up: Response: No adverse reaction ap3 16:57 Drug: Acetaminophen PO 1000 mg PO once Route: PO; ap3 17:07 Follow up: Response: No adverse reaction ap3 Disposition Summary: 12/05/22 16:38 Discharge Ordered Notes: Location: Home rt Problem: an ongoing problem rt Symptoms: have improved rt Condition: Stable rt Diagnosis - Recurrent dislocation, left shoulder rt Followup: rt - With: Mir Toth MD - When: 5 - 6 days - Reason: Discharge Instructions: - Discharge Summary Sheet rt - Shoulder Dislocation rt - Moderate Conscious Sedation, Adult, Care After rt Forms: - Medication Reconciliation Form rt - Thank You Letter rt - Antibiotic Education rt - Prescription Opioid Use rt - Patient Portal Instructions rt - Leadership Thank You Letter rt Signatures: Dispatcher [employer] Lorenza Noonan RN RN aa5 Brenda Lazaro RN RN ap3 Daniel Shin MD MD rt Corrections: (The following items were deleted from the chart) 13:17 12:53 Shoulder Left 2 View+RAD.RAD.BRZ ordered. EDMS EDMS
--- NOTE | 2022-12-05 16:39 | ER ---
Nurse's Notes [facility] Name: Lance David Age: 76 yrs Sex: Male : 1945 Arrival Date: 12/05/2022 Time: 12:48 Bed 3 Private MD: Diagnosis: Recurrent dislocation, left shoulder Presentation: 12/05 12:55 Chief complaint: Patient states: he was cleaning the kitchen when he slipped and fell ap3 injuring is left shoulder. patient reports hitting his head as well but denies LOC. Coronavirus screen: At this time, the client does not indicate any symptoms associated with coronavirus-19. Ebola Screen: No symptoms or risks identified at this time. Initial Sepsis Screen: Does the patient meet any 2 criteria? No. Patient's initial sepsis screen is negative. Does the patient have a suspected source of infection? No. Patient's initial sepsis screen is negative. Risk Assessment: Do you want to hurt yourself or someone else? Patient reports no desire to harm self or others. Onset of symptoms was December 05, 2022. 12:55 Method Of Arrival: EMS: [employer] [facility] ap3 12:55 Acuity: RUTHIE 2 ap3 12:58 Care prior to arrival: Medication(s) given: 100mcg fent IV initiated. 20 GA, in the ap3 right forearm. Triage Assessment: 12:59 General: Appears uncomfortable, Behavior is calm, cooperative, appropriate for age. ap3 Pain: Complains of pain in anterior aspect of left shoulder Pain currently is 8 out of 10 on a pain scale. Pain began suddenly. Neuro: Level of Consciousness is awake, alert, obeys commands, Oriented to person, place, time, situation. Cardiovascular: Patient's skin is warm and dry. Respiratory: Airway is patent Respiratory effort is even, unlabored, Respiratory pattern is regular, symmetrical. Musculoskeletal: left shoulder. Historical: - Allergies: 12:57 ACETAMINOPHEN; ap3 12:57 Codeine; ap3 12:57 hydrocodone bitartrate (bulk); ap3 12:57 Iodine; ap3 12:57 propoxyphene napsylate; ap3 12:57 Tramadol HCl; ap3 - PMHx: 12:57 ESSENTIAL TREMORS; Hypertension; Hypothyroidism; ap3 - Immunization history:: Client reports receiving the 2nd dose of the Covid vaccine. - Social history:: Smoking status: Patient denies any tobacco usage or history of. - Family history:: not pertinent. Screenin:00 [facility] ED Fall Risk Assessment (Adult) History of falling in the last 3 months, ap3 including since admission Yes- single mechanical fall (1 pt) Confusion or Disorientation No (0 pts) Intoxicated or Sedated No (0 pts) Impaired Gait Yes (1 pt) Mobility Assist Device Used No (0 pt) Altered Elimination No (0 pt). Abuse screen: Denies threats or abuse. Nutritional screening: No deficits noted. Tuberculosis screening: No symptoms or risk factors identified. Assessment: 16:08 Reassessment: Patient and/or family updated on plan of care and expected duration. Pain ap3 level reassessed. Patient is alert, oriented x 3, equal unlabored respirations, skin warm/dry/pink. Patient states feeling better. Patient states symptoms have improved. Vital Signs: 12:55 BP 118 / 65; Pulse 67; Resp 18; Temp 98.2; Pulse Ox 92% on R/A; Weight 93.89 kg; Pain ap3 8/10; 14:11 BP 136 / 74; Pulse 64; Pulse Ox 97% on 2 lpm NC; ap3 14:46 BP 146 / 83; Pulse 77; Resp 16; Pulse Ox 99% on 3 lpm NC; ap3 15:34 BP 146 / 83; Pulse 76; Resp 18; Pulse Ox 100% ; ap3 16:24 BP 132 / 70; Pulse 75; Resp 17; Pulse Ox 100% ; ap3 12:55 Pain Scale: Adult ap3 ED Course: 12:51 Patient arrived in ED. rt 12:51 Daniel Shin MD is Attending Physician. rt 12:55 Brenda Lazaro, BRADLEY is Primary Nurse. ap3 12:57 Triage completed. ap3 13:00 Arm band placed on right wrist. ap3 13:00 Patient has correct armband on for positive identification. Bed in low position. Call ap3 light in reach. Side rails up X2. chemical dependency nurse on. Pulse ox on. NIBP on. 13:03 CT Head C Spine In Process Unspecified. EDMS 13:17 Shoulder 1 View In Process Unspecified. EDMS 14:09 Provided Education on: Procedure Consent. ap3 14:10 of left shoulder. ap3 14:47 Shoulder 1 View In Process Unspecified. EDMS 16:38 Mir Toth MD is Referral Physician. rt 17:20 IV discontinued, intact, bleeding controlled, No redness/swelling at site. Pressure ap3 dressing applied. Administered Medications: 14:10 Drug: Ketamine IVP 75 mg IVP once Route: IVP; Site: right antecubital; ap3 17:07 Follow up: Response: No adverse reaction ap3 14:15 Drug: Ketamine IVP 25 mg IVP once Route: IVP; Site: right antecubital; ap3 17:07 Follow up: Response: No adverse reaction ap3 14:28 Drug: Ketamine IVP 25 mg IVP once Route: IVP; Site: right antecubital; ap3 17:07 Follow up: Response: No adverse reaction ap3 14:34 Drug: Propofol IVP 20 mg IVP once Route: IVP; Site: right antecubital; ap3 17:07 Follow up: Response: No adverse reaction ap3 16:57 Drug: Acetaminophen PO 1000 mg PO once Route: PO; ap3 17:07 Follow up: Response: No adverse reaction ap3 Medication: 17:20 VIS not applicable for this client. ap3 Outcome: 16:38 Discharge ordered by MD. rt 17:21 Discharged to home via wheelchair, with family, ap3 17:21 Condition: good 17:21 Discharge instructions given to patient, family, Instructed on discharge instructions, follow up and referral plans. Demonstrated understanding of instructions, follow-up care, 17:27 Patient left the ED. rs5 Signatures: Dispatcher [employer] EDMS Brenda Lazaro RN RN ap3 Daniel Shin MD MD rt Tevin Gaspar RN RN rs5
[2022-12-05] MEDS ORDERED: ACETAMINOPHEN 500 MG TAB ONE (17:07)
[2022-12-05 18:12] VITALS: TEMP 98.2
[2022-12-05 18:16] VITALS: O2SAT 100
[2022-12-05 18:17] VITALS: BP 132/70
== END 2022-12-05 17:27 | disposition home or self-care (01) ==
LOC: ER 12:48
PROC: 0RSKXZZ Reposition Left Shoulder Joint, External Approach (ICD-10-PCS; principal; 2022-12-05)
DX: M24.412 Recurrent dislocation, left shoulder (principal)
CPT/HCPCS: 70450; 72125; 73020 ×2; 96375; 96374; 99285; 23655; J2704

== ENCOUNTER 2022-12-21 22:34 | Inpatient (IN) | payer OTHER ==
--- OUTSIDE RECORDS SUMMARY | 2022-12-21 22:38 | XMS REPORT | Continuity of Care Document ---
:1945 Author Organization [facility] Address [address] [facility] [address] [place] [address] Care Team Providers Name Role Phone Brendan Pantoja MD Primary Care Physician [phone] BRENDAN PANTOJA Attending Clinician Unavailable Doctor Unassigned, [place] Attending Clinician Unavailable Brendan Pantoja MD Attending Clinician Lab, Ang - Db Attending Clinician Unavailable Vaccine, Ang Db Cbc Fam Attending Clinician Unavailable JOSEPH FLORES Attending Clinician Unavailable Vaccine, [facility] Family Medicine Attending Clinician Unavailable Joseph Flores DO Attending Clinician Nurse, [facility] Pob Immunization Attending Clinician Unavailable GRANT COCHRAN Attending Clinician Unavailable Pob1, Acute Care Clinic Attending Clinician Unavailable JAMIE RUIZ Attending Clinician Unavailable CRISTOFER KIMBLE Attending Clinician Unavailable JAMIE RUIZ Admitting Clinician Unavailable BRENDAN PANTOJA Admitting Clinician Unavailable Payers Payer Name Policy Type Policy Number Effective Date Expiration Date S [facility] [place]IC[place] PART A \\T\\ [id number] 2008 B 00:00:00 TRACEY [id number] 2020 00:00:00 COMMERCIAL [id number] 2016 NON-CONTRACT 00:00:00 GENERIC Problems Condition Condition [...] it y of on on 00:00: [place] [facility] Acquired Acquired Disease Active 2014-02 Unive rs hypothyroi hypothyroi 0-20 it y of dism dism 00:00: [place] [facility] 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 0-20 ity of syndrome syndrome 00:00: [place] [facility] Peripheral Peripheral Disease Recurre 2014-02 Univers neuropathi neuropathi nce 0-20 it y of c pain c pain 00:00: [place] [facility] Essential Essential Disease Active [facility] other and other 8-12 [facility] s specified specified 00:00: [facility] forms of forms of 00 Center tremor tremor Essential Essential Disease Active [facility] tremor tremor 8-12 [facility] 00:00: Medical 00 Center Allergies, Adverse Reactions, Alerts Allergy Allergy [...] adverse Vomiting 00:00: [place] reaction 00 Medical s Branch Tramadol Propensi Active Rash 2014-02 Univer s Hcl ty to 0-20 ity of adverse 00:00: [place] reaction 00 Medical s Branch Acetamin Drug Active Nausea And [facility] ophen-Co Intolera Vomiting 8-21 Luke s deine nce 00:00: Medical 00 Center ACETAMIN Allergy Active Med N\\T\\V [address] [facility] OPHEN-CO 8-21 [facility] DEINE 00:00: Medical 00 Center PROPOXYP Allergy Active Itching 2014- [facility] HENE 8-11 [facility] N-ACETAM 00:00: Medical INOPHEN 00 Center HYDROCOD Allergy Active Other [facility] ONE-ACET 8-11 [facility] AMINOPHE 00:00: Medical N 00 Center IODINE Allergy Active N\\T\\V [facility] AND 8-11 [facility] IODIDE 00:00: Medical CONTAINI 00 Center NG PRODUCTS SHELLFIS Allergy Active N\\T\\V [address] [facility] H 8-11 [facility] CONTAINI 00:00: Medical NG 00 Center PRODUCTS TRAMADOL Allergy Active Itching 2014-[address] [facility] -ACETAMI 8-11 [facility] NOPHEN 00:00: Medical 00 Center TRAMADOL Allergy Active Itching [facility] 8-11 [facility] 00:00: Medical 00 Center Propoxyp Drug Active Itching 2014- [facility] hene Allergy 8-11 [facility] N-Acetam 00:00: Medical inophen 00 Center Hydrocod Drug Active Other (See 2014- Stomach [facility] one-Acet Intolera Comments) 8-11 burning Jenae kes aminophe nce 00:00: Medical n 00 Center Iodine Drug Active Nausea And 2014-[address] [facility] And Allergy Vomiting 8-11 [facility] Iodide 00:00: Medical Containi 00 Center ng Products Shellfis Drug Active Nausea And [address] [facility] [facility] h Allergy Vomiting 8-11 [facility] Containi 00:00: Medical ng 00 Center Products Tramadol Drug Active Itching 2014-[address] -Acetami Allergy 8-11 [facility] nophen 00:00: Medical 00 Center Tramadol Drug Active Itching 2014-[address] [facility] Allergy 8-11 [facility] 00:00: Medical 00 Center Social History Social Habit Start Date Stop Date Quantity Comments Source Cigarettes smoked 2022-08-09 2022-08-09 Univers ity of current (pack per 00:00:00 00:00:00 ) - Reported Branch Cigarette 2022-08-09 2022-08-09 University of pack-years 00:00:00 00:00:00 [facility] Tobacco use and 2022-08-09 2022-08-09 Smokeless Universit y of exposure 00:00:00 00:00:00 tobacco non-user [facility] Exposure to 2022-01-29 2022-02-08 Not sure University of SARS-CoV-2 (event) 00:00:00 12:41:00 [facility] Alcohol intake 2019-02-25 2019-02-[address] Vamsi es 00:00:00 00:00:00 non-drinker of Medical nter alcohol (finding) Tobacco Comment 2014-10-06 2014-10-06 quit smoking [address] [facility] 00:00:00 00:00:00 yrs ago [facility] History of tobacco 1974-12-15 Cigarette Smoker University of use 00:00:00 [facility] Sex Assigned At [address] Jenae kes 00:00:00 00:00:00 [facility] Smoking Status Start Date Stop Date Source Ex-smoker 2022-08-09 00:00:00 2022-08-09 00:00:00 [facility] Medications Ordered Filled Start Stop Current Ordering Indication Dosage Frequency Signature Comments Components Source Medication Medication Date Date Medication? Clinician (SIG) Name Name hydroCHLORO 2021-02 Yes [id number] 25mg Take 1 Univers thiazide 25 2-14 tablet by ity of mg tablet 00:00: mouth in [facility] the Medical morning. Branch lisinopriL 2021-02 Yes [id number] 20mg Take 1 U nivers 20 mg 2-14 tablet by ity of tablet 00:00: mouth in [place] 00 the Medical morning Branch and 1 tablet in the evening. levothyroxi 2021-02 Yes [id number] 125ug Take 1 Univers ne 125 mcg 2-14 tablet by ity of tablet 00:00: mouth [place] [address] every Medical morning. Branch hydroCHLORO 2021-02 Yes [id number] 25mg Take 1 Univers thiazide 25 2-14 tablet by ity of mg tablet 00:00: mouth in [facility] 00 the Medical morning. Branch lisinopriL 2021-02 Yes [id number] 20mg Take 1 U nivers 20 mg 2-14 tablet by ity of tablet 00:00: mouth in [place] 00 the Medical morning Branch and 1 tablet in the evening. levothyroxi 2021-02 Yes [id number] 125ug Take 1 Univers ne 125 mcg 2-14 tablet by ity of tablet 00:00: mouth [place] 00 every Medical morning. Branch hydroCHLORO 2021-02 Yes [id number] 25mg Take 1 Univers thiazide 25 2-14 tablet by ity of mg tablet 00:00: mouth in [facility] 00 the Medical morning. Branch lisinopriL 2021-02 Yes [id number] 20mg Take 1 U nivers 20 mg 2-14 tablet by ity of tablet 00:00: mouth in [place] 00 the Medical morning Branch and 1 tablet in the evening. levothyroxi 2021-02 Yes [id number] 125ug Take 1 Univers ne 125 mcg 2-14 tablet by ity of tablet 00:00: mouth [place] 00 every Medical morning. Branch hydroCHLORO 2021-02 Yes [id number] 25mg Take 1 Univers thiazide 25 2-14 tablet by ity of mg tablet 00:00: mouth in [facility] 00 the Medical morning. Branch lisinopriL 2021-02 Yes [id number] 20mg Take 1 U nivers 20 mg 2-14 tablet by ity of tablet 00:00: mouth in [place] 00 the Medical morning Branch and 1 tablet in the evening. levothyroxi 2021-02 Yes [id number] 125ug Take 1 Univers ne 125 mcg 2-14 tablet by ity of tablet 00:00: mouth [place] 00 every Medical morning. Branch hydroCHLORO 2021-02 Yes [id number] 25mg Take 1 Univers thiazide 25 2-14 tablet by ity of mg tablet 00:00: mouth in [facility] 00 the Medical morning. Branch lisinopriL 2021-02 Yes [id number] 20mg Take 1 U nivers 20 mg 2-14 tablet by ity of tablet 00:00: mouth in [place] 00 the Medical morning Branch and 1 tablet in the evening. levothyroxi 2021-02 Yes [id number] 125ug Take 1 Univers ne 125 mcg 2-14 tablet by ity of tablet 00:00: mouth [place] 00 every Medical morning. Branch hydroCHLORO 2021-02 Yes [id number] 25mg Take 1 Univers thiazide 25 2-14 tablet by ity of mg tablet 00:00: mouth in [facility] 00 the Medical morning. Branch lisinopriL 2021-02 Yes [id number] 20mg Take 1 U nivers 20 mg 2-14 tablet by ity of tablet 00:00: mouth in [place] 00 the Medical morning Branch and 1 tablet in the evening. levothyroxi 2021-02 Yes [id number] 125ug Take 1 Univers ne 125 mcg 2-14 tablet by ity of tablet 00:00: mouth [place] 00 every Medical morning. Branch hydroCHLORO 2021-02 Yes [id number] 25mg Take 1 Univers thiazide 25 2-14 tablet by ity of mg tablet 00:00: [place] the Medical morning. Branch lisinopriL 2021-02 Yes [id number] 20mg Take 1 U nivers 20 mg 2-14 tablet by ity of tablet 00:00: mouth in [place] 00 the Medical morning Branch and 1 tablet in the evening. levothyroxi 2021-02 Yes [id number] 125ug Take 1 Univers ne 125 mcg 2-14 tablet by ity of tablet 00:00: mouth [place] 00 every Medical morning. Branch hydroCHLORO 2021-02 Yes [id number] 25mg Take 1 Univers thiazide 25 2-14 tablet by ity of mg tablet 00:00: [place] the Medical morning. Branch lisinopriL 2021-02 Yes [id number] 20mg Take 1 U nivers 20 mg 2-14 tablet by ity of tablet 00:00: mouth in [place] 00 the Medical morning Branch and 1 tablet in the evening. levothyroxi 2021-02 Yes [id number] 125ug Take 1 Univers ne 125 mcg 2-14 tablet by ity of tablet 00:00: mouth [place] 00 every Medical morning. Branch hydroCHLORO 2021-0 Yes [id number] 25mg Take 1 Univers thiazide 25 6-14 tablet by ity of mg tablet 00:00: mouth [place] 00 daily. Medical Branch lisinopriL 2021-0 Yes [id number] 20mg Take 1 U nivers 20 mg 6-14 tablet by ity of tablet 00:00: mouth 2 [place] 00 (two) Medical times Branch daily. hydroCHLORO 2021-0 Yes [id number] 25mg Take 1 Univers thiazide 25 6-14 tablet by ity of mg tablet 00:00: mouth [place] 00 daily. Medical Branch lisinopriL 2021-0 Yes [id number] 20mg Take 1 U nivers 20 mg 6-14 tablet by ity of tablet 00:00: mouth 2 [place] 00 (two) Medical times Branch daily. hydroCHLORO 2021- No [id number] 25mg Take 1 Univers thiazide 25 6-14 12-14 tablet by it y of mg tablet 00:00: 00:00 mouth [place] 00 :00 daily. Medical Branch lisinopriL 2021- No [id number] 20mg Take 1 Univers 20 mg 6-14 12-14 tablet by ity of tablet 00:00: 00:00 mouth 2 [place] 00 :00 (two) Medical times Branch daily. hydroCHLORO 2021- No [id number] 25mg Take 1 Univers thiazide 25 6-14 12-14 tablet by it y of mg tablet 00:00: 00:00 mouth [place] 00 :00 daily. Medical Branch lisinopriL 2021- No [id number] 20mg Take 1 Univers 20 mg 6-14 12-14 tablet by ity of tablet 00:00: 00:00 mouth 2 [place] 00 :00 (two) Medical times Branch daily. LEVOTHYROXI Yes TAKE 1 Univ ers NE 125 mcg 2-04 TABLET BY ity of tablet 00:00: MOUTH IN [place] 00 THE Medical MORNING Branch LEVOTHYROXI Yes TAKE 1 Univ ers NE 125 mcg 2-04 TABLET BY ity of tablet 00:00: MOUTH IN [place] 00 THE Medical MORNING Branch LEVOTHYROXI 2021- No TAKE 1 Uni vers NE 125 mcg 2-04 12-14 TABLET BY ity of tablet 00:00: 00:00 MOUTH IN [place] 00 :00 THE Medical MORNING Branch LEVOTHYROXI 2021- No TAKE 1 Uni vers NE 125 mcg 2-04 12-14 TABLET BY ity of tablet 00:00: 00:00 MOUTH IN [place] 00 :00 THE Medical MORNING Branch lisinopriL- 2020-02- No [id number] 2{tbl} Take 2 Univers hydrochloro 2-13 06-14 tablets by i ty of thiazide 00:00: 00:00 mouth [place] 20-12.5 mg 00 :00 daily. Medical per tablet Branch levothyroxi 2020-02- No [id number] TAKE 1 Univers ne 112 mcg 2-13 06-14 TABLET BY ity of tablet 00:00: 00:00 MOUTH IN [place] 00 :00 THE Medical MORNING Branch aspirin 2019- Yes 81mg Take 81 mg Univ ers (ASPIRIN 2-09 by mouth ity of LOW DOSE) 14:29: daily. [place] 81 mg EC 33 Medical tablet Branch aspirin 2019-02 Yes 81mg Take 81 mg Univ ers (ASPIRIN 2-09 by mouth ity of LOW DOSE) 14:29: daily. [place] 81 mg EC 33 Medical tablet Branch aspirin 2019-02 Yes 81mg Take 81 mg Univ ers (ASPIRIN 2-09 by mouth ity of LOW DOSE) 14:29: daily. [place] 81 mg EC 33 Medical tablet Branch aspirin 2019-02 Yes 81mg Take 81 mg Univ ers (ASPIRIN 2-09 by mouth ity of LOW DOSE) 14:29: daily. [place] 81 mg EC 33 Medical tablet Branch aspirin 2019-02 Yes 81mg Take 81 mg Univ ers (ASPIRIN 2-09 by mouth ity of LOW DOSE) 14:29: daily. [place] 81 mg EC 33 Medical tablet Branch aspirin 2019- Yes 81mg Take 81 mg Univ ers (ASPIRIN 2-09 by mouth ity of LOW DOSE) 14:29: daily. [place] 81 mg EC 33 Medical tablet Branch aspirin 2019-02 Yes 81mg Take 81 mg Univ ers (ASPIRIN 2-09 by mouth ity of LOW DOSE) 14:29: daily. [place] 81 mg EC 33 Medical tablet Branch aspirin 2019- Yes 81mg Take 81 mg Univ ers (ASPIRIN 2-09 by mouth ity of LOW DOSE) 14:29: daily. [place] 81 mg EC 33 Medical tablet Branch aspirin 2019-02 Yes 81mg Take 81 mg Univ ers (ASPIRIN 2-09 by mouth ity of LOW DOSE) 14:29: daily. [place] 81 mg EC 33 Medical tablet Branch aspirin 2019-02 Yes 81mg Take 81 mg Univ ers (ASPIRIN 2-09 by mouth ity of LOW DOSE) 14:29: daily. [place] 81 mg EC 33 Medical tablet Branch levothyroxi 2018-02 Yes 112ug QD Take [address] ne 2-30 mcg by [place] (SYNTHROID, 18:54: mouth Medic al LEVOTHROID) 14 [...] 18:54: mouth Medical tablet 14 nightly . [place] lisinopril- 2018-02 Yes 1{tbl} QD Take [address] hydroCHLORO 2-30 tablet by Vamsi es thiazide 18:54: mouth Medical (PRINZIDE,Z 14 daily. [place] ESTORETIC) 20-25 mg per tablet levothyroxi 2018-02 Yes 112ug QD Take [address] ne 2-30 mcg by [facility] (SYNTHROID, 18:54: mouth Medic al LEVOTHROID) 14 daily. [place] 112 MCG tablet gabapentin 2018-02 Yes 600mg Q.5D Take [address] (NEURONTIN) 2-30 mg by [facility] 300 MG 18:54: mouth 2 Medical capsule 14 (two) Center times daily 2 tabs. pramipexole 2018-02 Yes .125mg QD Take 0.[address] (MIRAPEX) 2-30 mg by [facility] 0.125 MG 18:54: mouth Medical tablet 14 nightly . [place] lisinopril- 2018-02 Yes 1{tbl} QD Take [address] hydroCHLORO 2-30 tablet by Vamsi es thiazide 18:54: mouth Medical (PRINZIDE,Z 14 daily. [place] ESTORETIC) 20-25 mg per tablet levothyroxi 2018-02 Yes 112ug QD Take [address] ne 2-30 mcg by [facility]ukes (SYNTHROID, 18:54: mouth Medic al LEVOTHROID) 14 daily. [place] 112 MCG tablet gabapentin 2018-02 Yes 600mg Q.5D Take [address] (NEURONTIN) 2-30 mg by [facility] 300 MG 18:54: mouth 2 Medical capsule 14 (two) Center times daily 2 tabs. pramipexole 2018-02 Yes .125mg QD Take 0.[address] (MIRAPEX) 2-30 mg by [facility]ukes 0.125 MG 18:54: mouth Medical tablet 14 nightly . [place] lisinopril- 2018-02 Yes 1{tbl} QD Take [address] hydroCHLORO 2-30 tablet by Vamsi es thiazide 18:54: mouth Medical (PRINZIDE,Z 14 daily. [facility]) 20-25 mg per tablet pramipexole 2015-0 Yes 1mg 1 mg at Uni vers (MIRAPEX) 1 9-24 bedtime. ity of mg tablet 00:00: [place] [facility] gabapentin 2015-0 Yes 300mg 300 mg. Uni vers (NEURONTIN) 11-19 ity of 300 mg 00:00: [place] capsule 00 Medical Branch pramipexole 2015-0 Yes 1mg 1 mg at Uni vers (MIRAPEX) 1 9-24 bedtime. ity of mg tablet 00:00: [place] [facility] gabapentin 2015-0 Yes 300mg 300 [...] bedtime. ity of mg tablet 00:00: [place] [facility] gabapentin 2015-0 Yes 300mg 300 mg. Uni vers (NEURONTIN) 24 ity of 300 mg 00:00: [place] capsule Medical Branch pramipexole 2015-0 Yes 1mg 1 mg at Uni vers (MIRAPEX) 1 9-24 bedtime. ity of mg tablet 00:00: [place] [facility] gabapentin 2015-0 Yes 300mg 300 mg. Uni vers (NEURONTIN) 11-19 ity of 300 mg 00:00: [place] capsule Medical Branch pramipexole 2014-0 Yes 1mg 1 mg at Uni vers (MIRAPEX) 1 -24 bedtime. ity of mg tablet 00:00: [facility] gabapentin 2015-0 Yes 300mg 300 mg. Uni vers (NEURONTIN) 11-19 ity of 300 mg 00:00: [place] capsule Medical Branch pramipexole 2014-0 Yes 1mg 1 mg at Uni vers (MIRAPEX) 1 9-24 bedtime. ity of mg tablet 00:00: [facility] Branch gabapentin 2014-0 Yes 300mg 300 mg. Uni vers (NEURONTIN) 11-19 ity of 300 mg 00:00: [place] capsule Medical Branch pramipexole 2014-0 Yes 1mg 1 mg at Uni vers (MIRAPEX) 1 24 bedtime. ity of mg tablet 00:00: [facility] gabapentin 2014-0 Yes 300mg 300 mg. Uni vers (NEURONTIN) 11-19 ity of 300 mg 00:00: [place] capsule [facility] Vital Signs Vital Name Observation Time Observation Value Comments Source Systolic blood 2022-08-09 18:07:00 152 mm[Hg] Univer sity [facility] Diastolic blood 2022-08-09 18:07:00 83 [facility]Hg[facility] 2022-08-09 18:06:00 74 /min [facility] Body weight 2022-08-09 18:06:00 96.616 [facility] BMI 2022-08-09 18:06:00 28.10 kg/m2 [facility] Systolic blood 2022-02-08 19:11:00 132 mm[Hg] Univer sity [facility] Diastolic blood 2022-02-08 19:11:00 84 mm[Hg] [facility] 2022-02-08 19:11:00 62 /min [facility] Body temperature 2022-02-08 19:11:00 [facility].56 [facility] height 2022-02-08 19:11:00 185.4 cm Universi ty of [facility] Body weight 2022-02-08 19:11:00 101.152 kg Universi ty [facility] BMI 2022-02-08 19:11:00 29.42 kg/m2 Universi ty [facility] Systolic blood 2021-08-09 18:10:00 156 mm[Hg] Univer sity of pressure [facility] Diastolic blood 2021-08-09 18:10:00 88 mm[Hg] Unive rsity of [facility] Heart rate 2021-08-09 18:00:00 86 /min Universi ty of [facility] Body height 2021-08-09 18:00:00 185.4 cm Universi ty [facility] Body weight 2021-08-09 18:00:00 102.513 kg Universi ty [facility] BMI 2021-08-09 18:00:00 29.82 kg/m2 Universi ty [facility] Procedures Procedure Date / Time Performed Performing Clinician [facility] EXTERNAL PROVIDER 2022-08-30 05:01:00 Doctor Unassigned, No Univ ersity of [place] RECORDS Name Medical Branch EXTERNAL PROVIDER 2022-04-19 06:01:00 Doctor Unassigned, No Univ ersity of [place] RECORDS Name Medical Branch EXTERNAL PROVIDER 2022-03-16 06:01:00 Doctor Unassigned, No Univ ersity of [place] RECORDS Name [facility] Branch SARS-COV-2 COVID-19 2021-11-18 18:33:03 Doctor Unassigned, No [facility] VACCINE 18 YRS+, Name [facility] BIVALENT 0.5ML, IM (MODERNA BOOSTER) Encounters Start End Encounter Admission Attending Care Care Encounter Source Date/Time Date/Time Type Type Clinicians Facility Department ID 2023-02-08 2023-02-08 Outpatient Rico PANTOJA, [facility] [id number] Univers 13:00:00 13:00:00 BRENDAN moya of [facility] 2022-08-30 2022-08-30 Orders Doctor OLEARY 1.2.840.114 [id number] Univers 00:00:00 00:00:00 Only Unassigned, CELIA 350.1.13.10 ity of [place] [facility] [id number] Barrera as [phone] [address] 2022-08-09 2022-08-09 Outpatient R KIT [facility] [id number] Univers 13:00:00 13:33:44 BRENDAN ity [facility] 2022-08-09 2022-08-09 [facility] 1.2.840.114 [id number] Univers 13:00:00 13:15:00 Visit Brendan [facility] 350.1.13.10 it y of Edqamar [place] 4.2.7.2.686 Barrera as JHONATAN?BLEA [id number] [facility] [address] MEDICAL OFFICE BUILDING 2022-04-19 2022-04-19 Orders Doctor MAMTA 1.2.840.114 [id number] Univers 00:00:00 00:00:00 Only Unassigned, CELIA 350.1.13.10 ity of [place] [facility] 4.2.7.2.686 Brarera as [phone] [address] 2022-03-16 2022-03-16 Orders Doctor MAMTA 1.2.840.114 [id number] Univers 00:00:00 00:00:00 Only Unassigned, CELIA 350.1.13.10 ity of [place] [facility] 4.2.7.2.686 Barrera as [id number] [address] 2022-02-08 2022-02-08 Grid Trimmer Lab, [facility] 1.2.840.1 [id number] Univers 13:30:00 13:45:00 Visit Stellaisaac Brendan [facility] 350.1.13 .10 ity of [place] 4.2.7.2.686 Barrera as JHONATAN?BLEA [phone] [address] MEDICAL OFFICE BUILDING 2022-02-08 2022-02-08 Outpatient R KIT [facility] [id number] Univers 13:30:00 13:30:00 BRENDAN moya [facility] 2022-02-08 2022-02-08 [facility] 1.2.840.114 [id number] Univers 13:00:00 13:30:00 Visit [facility] 350.1.13.10 it y of Edqamar [place] 4.2.7.2.686 Barrera as JHONATAN?BLEA [phone] Wi alexandra [address] MEDICAL [facility] 2021-11-18 2021-11-18 Imm/Inj Vaccine, Ang Db Cbc Fam [facility] 1. 2.840.114 [id number] Univers 13:10:00 13:20:00 Visit Brendan Pantoja qamar [facility] 350.1.13 .10 ity of [place] 4.2.7.2.686 Barrera as JHONATAN?BLEA [phone] Wi alexandra [address] [facility] 2021-11-18 2021-11-18 Outpatient R KIT [facility] [id number] Univers 13:10:00 13:10:00 BRENDAN [facility] 2021-08-09 2021-08-09 Office Kit [facility] 1.2.840.114 [id number] Univers 13:00:00 13:15:00 Visit [facility] 350.1.13.10 it y of [place] 4.2.7.2.686 Barrera as JHONATAN?BLEA [phone] Wi alexandra [address] [facility] 2021-08-09 2021-08-09 Outpatient Rico PANTOJA [facility] [id number] Univers 13:00:00 13:00:00 BRENDAN [facility] 2021-08-09 2021-08-09 Outpatient Rico PANTOJA [facility] [id number] Univers 13:00:00 13:00:00 BRENDAN humberto [facility] 2021-06-03 2021-06-03 Outpatient Rico FLORES [facility] [id number] Univers 16:00:00 16:00:00 JOSEPH moya [facility] 2021-06-03 2021-06-03 Imm/Inj Vaccine, [facility] 1.2.840.114 [id number] Univers 16:00:00 16:00:00 Visit Joseph Flores 350.1.13 .10 ity of [place]2.686 [place] PROFESS[place] [phone] Wi alexandra BRAGG [address] [place] [address] 2021-03-31 2021-03-31 [facility] 1.2.840.114 [id number] Univers 00:00:00 00:00:[address] [facility] 350.1.13.10 it y of [place] 4.2.7.2.686 Barrera as JHONATAN?BLEA [phone] [facility] [address] MEDICAL [facility] 2021-02-08 2021-02-08 Telephone [facility] 1.2.840.114 [id number] Univers 00:00:00 00:00:[address] [facility] 350.1.13.10 it y of [place] 4.2.7.2.686 Barrera as JHONATAN?BLEA [id number] [address] [facility] 2021-02-07 2021-02-07 Outpatient R [facility] [id number] Univers 10:30:00 10:30:00 BRENDAN [facility] 2021-02-07 2021-02-07 Grid Trimmer Lab, [facility] 1.2.840.1 14 [id number] Univers 09:21:45 09:36:45 Visit Brendan Pantoja qamar [facility] 350.1.13 .10 ity of [place] 4.2.7.2.686 Barrera as JHONATAN?BLEA [id number] [facility] 2021-02-07 2021-02-07 [facility] [id number] Univers 09:15:00 09:15:00 BRENDAN [facility] 2021-02-07 2021-02-07 Office [facility] 1.2.840.114 [id number] Univers 08:49:26 09:04:26 Visit [facility] 350.1.13.10 it y of [place] 4.2.7.2.686 Barrera as JHONATAN?BLEA [phone] [address] [facility] 2021-02-07 2021-02-07 Orders Doctor OLEARY 1.2.840.114 [id number] Univers 00:00:00 00:00:00 Only Unassigned, CELIA 350.1.13.10 ity of [place] [facility] 4.2.7.2.686 Barrera as [phone] [address] 2020-12-20 2020-12-20 Outpatient R MARK [facility] [id number] Univers 14:20:00 14:20:00 JOSEPH ithumberto [facility] 2020-12-20 2020-12-20 Imm/Inj Nurse, Adc Pob Immunization [facility] 1.2.840.114 [id number] Univers 13:43:04 13:43:20 Visit MarkJoseph 350.1.13 .10 ity of [place] Profess[place] [phone] Wi dical nal [address] [facility] 2020-11-20 2020-11-20 Carmella Pantoja [facility] 1.2.840.114 [id number] Univers 00:00:00 00:00:00 [facility] 350.1.13.10 it y of [place] 4.2.7.2.686 Barrera as Professio [phone] Wi dical nal [address] 2020-10-30 2020-10-30 Orders Doctor MAMTA 1.2.840.114 [id number] Univers 00:00:00 00:00:00 Only Unassigned, CELIA 350.1.13.10 ity of [place] [facility] 4.2.7.2.686 Barrera as [phone] [address] 2020-04-05 2020-04-05 Outpatient Rico COCHRAN [facility] [id number] Univers 09:50:00 09:50:00 [facility] 2020-03-08 2020-03-08 Outpatient Rico COCHRAN [facility] [id number] Univers 10:50:00 10:50:00 [facility] 2020-02-04 2020-02-04 Outpatient Rico PANTOJA [facility] [id number] Univers 13:30:00 13:30:00 [facility] 2019-06-11 2019-06-11 Orders Doctor OLEARY [id number] 00:00:00 00:00:00 Only Unassigned, CELIA [id number] [facility] [id number] 2019-06-09 2019-06-09 Telephone Pojesse, Acute [facility] [id number] 00:00:00 00:00:00 [facility] [id number] Fanny [id number] Professio [id number] nal [facility] 2019-06-09 2019-06-09 [facility] [id number] 00:00:00 00:00:00 Brendan Escobedo [id number] Taran Matias [id number] Professio [phone] [address] 2019-03-12 2019-03-12 Orders Doctor OLEARY [id number] 00:00:00 00:00:00 Only Unassigned, CELIA [id number] [facility] [id number] 2019-02-13 2019-02-13 [facility] [id number] Univers 11:15:41 23:59:00 [facility] 2019-02-13 2019-02-13 Outpatient Rico PANTOJA [facility] [id number] Univers 11:15:41 23:59:00 [facility] 2019-02-06 2019-02-06 Outpatient Rico KIMBLE [facility] [id number] Univers 14:30:00 14:29:27 C[facility]STOF[facility] Results Test Description Test Time Test Comments Results Result Sour e Comments TISSUE EXAM 2019-02-28 Surgical Pathology 08:16:00 Report Case: [id number] Authorizing Provider: Jamie Ruiz MD Collected: 02/24/2019 1425 Ordering Location: [facility] Received: 02/24/2019 1439 SERVICES Pathologist: Prateek Gardner MD Specimen: Explant, explanted battery NEUROSURGICAL HARDWARE, REMOVAL:DEEP BRAIN STIMULATOR BATTERY (GROSS EXAMINATION ONLY) Signing Pathologist Direct Phone Line: [phone] lly signed by Prateek Gardner MD on 02/28/2019 at 8:16 [id number] of battery life of deep brain stimulatorExplant Received fresh labeled with the patient's name, accession number and "explanted battery" is a 6.3 x 4.8 x 1.3 cm, metallic, garcia, rectangular piece of hardware that contains the following inscription:"[employer]" "ACTIVA PC""SN [id number]"A gross photograph is taken. No sections are submitted. This case is for gross examination only. PA/you
[2022-12-21] MEDS ORDERED: ACETAMINOPHEN 500 MG TAB ONE (23:40)
[2022-12-21 23:56] LABS: Absolute Lymphocytes (CBC) 0.4 K/uL (0.7-4.9); Hematocrit 43.5 % (39.6-49.0); Lymphocytes % 5.2 % (15.3-44.8); MCV 92.3 fL (80-100); MPV 7.1 fL (7.6-11.3); Platelets 242 thou/uL (152-406); RBC Red Blood Cell Count 4.72 M/uL (4.33-5.43)
[2022-12-22 00:04] LABS: Protime INR 1.03
[2022-12-22 00:15] LABS: Albumin 3.5 g/dL (3.4-5.0); Bilirubin Total 0.3 mg/dL (0.2-1.0); Potassium 3.8 mEq/L (3.5-5.1); Protein, Total 7.3 g/dL (6.4-8.2)
[2022-12-22 00:34] LABS: SARS-COV-2 RT PCR POSITIVE (NEGATIVE)
[2022-12-22] MEDS ORDERED: NA CHLORIDE 0.9% 500 ML ONE (00:50)
--- NOTE | 2022-12-22 00:54 | ER ---
Nurse's Notes [facility] Name: Lance David Age: 77 yrs Sex: Male : 1945 Arrival Date: 12/21/2022 Time: 22:34 Bed 15 Private MD: Diagnosis: SARS-associated coronavirus as the cause of diseases classified elsewhere;Muscle weakness (generalized);Dyspnea, unspecified;Fever, unspecified Presentation: 12/21 22:43 Chief complaint: Patient's son or daughter states: he has been feeling weak all day, ha1 headache, has a dry cough, and fever. 22:43 Method Of Arrival: Wheelchair [facility] 22:43 Coronavirus screen: Vaccine status:. Ebola Screen: No symptoms or risks identified at [facility] this time. Initial Sepsis Screen: Does the patient meet any 2 criteria? Temp <36.0*C (96.8*F)) or > 38.3*C (100.9*F). HR > 90 bpm. Yes Does the patient have a suspected source of infection? Yes:. Onset of symptoms was December 21, 2022. 22:43 Acuity: RUTHIE 3 ha1 22:45 Risk Assessment: Do you want to hurt yourself or someone else? Patient reports no ha1 desire to harm self or others. Triage Assessment: 22:43 General: Appears uncomfortable, Behavior is calm, cooperative. Pain: Complains of pain ha1 in headache Pain does not radiate. Pain currently is 8 out of 10 on a pain scale. Neuro: Level of Consciousness is awake, alert, obeys commands, Oriented to person, place, time, situation. Neuro: Reports headache in entire. Neuro: Reports weakness generalized. Cardiovascular: Patient's skin is warm and dry. Respiratory: Reports cough that is dry, Airway is patent Respiratory effort is even, unlabored, Respiratory pattern is regular, symmetrical. Derm: Skin is fragile, has lesions on right and left arm Skin is normal. Musculoskeletal: Circulation, motion, and sensation intact. Historical: - Allergies: 22:43 Codeine; ha1 22:43 hydrocodone bitartrate (bulk); ha1 22:43 Iodine; ha1 22:43 propoxyphene napsylate; ha1 22:43 Tramadol HCl; ha1 - Home Meds: 22:43 Aspirin Oral [Active]; levothyroxine oral [Active]; ha1 - PMHx: 22:43 Hypertension; ESSENTIAL TREMORS; Hypothyroidism; ha1 - Immunization history:: Adult Immunizations unknown. - Family history:: not pertinent. - Social history:: Smoking status: unknown. - Hospitalizations: : No recent hospitalization is reported. Screenin:43 [facility] ED Fall Risk Assessment (Adult) History of falling in the last 3 months, ha1 including since admission Confusion or Disorientation No (0 pts) Intoxicated or Sedated No (0 pts) Impaired Gait No (0 pts) Mobility Assist Device Used Yes (1 pt) Altered Elimination No (0 pt) Score/Fall Risk Level 3 or more points = High Risk Oriented to surroundings, Maintained a safe environment, Educated pt \T\ family on fall prevention, incl call for assistance when getting out of bed, Hourly rounding (assess needs \T\ fall precautionary measures) done. Abuse screen: Denies threats or abuse. Denies injuries from another. Nutritional screening: No deficits noted. Tuberculosis screening: No symptoms or risk factors identified. Assessment: 22:45 Reassessment: see triage assessment. ha1 12/22 00:00 Reassessment: Patient and/or family updated on plan of care and expected duration. Pain ha1 level reassessed. Patient is alert, oriented x 3, equal unlabored respirations, skin warm/dry/pink. 01:00 Reassessment: Patient and/or family updated on plan of care and expected duration. Pain ha1 level reassessed. Patient is alert, oriented x 3, equal unlabored respirations, skin warm/dry/pink. 01:00 Reassessment: pt.s yecenia Lagunas cell # [phone]. ha1 02:00 Reassessment: Patient and/or family updated on plan of care and expected duration. Pain ha1 level reassessed. Patient is alert, oriented x 3, equal unlabored respirations, skin warm/dry/pink. Patient denies pain at this time. 02:45 Reassessment: report given to BRADLEY Sin. ha1 Vital Signs: 12/21 23:00 BP 141 / 79; Pulse 102; Resp 17; Temp 101; Pulse Ox 98% on R/A; Weight 89.81 kg; Height ha1 6 ft. 0 in. ; 12/22 00:15 BP 138 / 78; Pulse 90; Resp 20 S; Temp 99.2(O); Pulse Ox 96% on R/A; ha1 00:50 BP 127 / 67; Pulse 81; Resp 17 S; Temp 97.9(O); Pulse Ox 96% on R/A; ha1 02:00 BP 127 / 69; Pulse 73; Resp 18 S; Pulse Ox 95% on R/A; ha1 12/21 23:00 Body Mass Index 26.85 (89.81 kg, 182.88 cm) ha1 ED Course: 12/21 22:38 Patient arrived in ED. ag3 22:41 Ramón Kaminski MD is Attending Physician. rn 22:43 Patient has correct armband on for positive identification. Placed in gown. Bed in low ha1 position. Call light in reach. Side rails up X 1. 22:45 Arm band placed on right wrist. ha1 23:15 Inserted saline lock: 20 gauge in right antecubital area, using aseptic technique. ha1 Blood collected. 23:39 Chest Single View XRAY In Process Unspecified. EDMS 23:52 Triage completed. ha1 12/22 00:16 Vicki Chambers, BRADLEY is Primary Nurse. ha1 00:32 Blood Culture Adult (2) Sent. ha1 00:52 Raghav Perry MD is Hospitalizing Provider. rn 02:53 No provider procedures requiring assistance completed. Patient admitted, IV remains in ha1 place. 02:54 Provided Education on: need for admit . ha1 Administered Medications: 12/21 23:00 Drug: Acetaminophen PO 1000 mg PO once Route: PO; ha1 12/22 00:15 Follow up: Response: No adverse reaction; Temperature is decreased; Pain is decreased ha1 00:20 Drug: NS 0.9% IV 500 ml IV at bolus once Route: IV; Rate: bolus; Site: right ha1 antecubital; 02:10 Follow up: Response: No adverse reaction; IV Status: Completed infusion; IV Intake: ha1 500ml Medication: 02:08 VIS not applicable for this client. ha1 Intake: 02:10 IV: 500ml; Total: 500ml. ha1 Outcome: 00:53 Decision to Hospitalize by Provider. rn 02:53 Admitted to Med/surg accompanied by clive, via stretcher, room 222, with chart, Report ha1 called to BRADLEY Sin 02:53 Condition: stable 02:53 Instructed on the need for admit, Demonstrated understanding of instructions, 02:54 Patient left the ED. ha1 Signatures: Dispatcher [employer] Ramón Hernandez MD MD rn Gomez, Alice ag3 Vicki Chambers RN RN ha1 Corrections: (The following items were deleted from the chart) 02:12/21 22:43 Chief complaint: Patient's son or daughter states: he has been feeling weak ha1 all day, has dry cough, and fever. ha1 12/22 02:11 00:00 BP 138 / 78; Pulse 90bpm; Resp 20bpm; Spontaneous; Pulse Ox 96% RA; ha1 ha1
--- NOTE | 2022-12-22 00:54 | EDPHYS ---
Physician Documentation [facility] Name: Lance David Age: 77 yrs Sex: Male : 1945 Arrival Date: 12/21/2022 Time: 22:34 Bed 15 Private MD: ED Physician Ramón Kaminski HPI: 12/21 23:30 This 77 yrs old Male presents to ER via Unassigned with complaints of Fever, Weakness. rn 23:30 The patient reports fever, that was measured at 102 degrees Fahrenheit. Onset: The rn symptoms/episode began/occurred today. Modifying factors: there are no obvious modifying factors. Associated signs and symptoms: Pertinent positives: backache, chills, cough, headache, runny nose, sore throat. Severity of symptoms: At their worst the symptoms were moderate in the emergency department the symptoms are unchanged. The patient has not experienced similar symptoms in the past. Patient reports started to feel bad around dinnertime, generalized weakness, muscle aches and myalgias, fever to 102. Reports cough for 2 days but got worse today. Reports feels really weak and son states unable to walk or stand on his own due to weakness. No vomiting or diarrhea. No abdominal pain. No chest pain.. Historical: - Allergies: 22:43 Codeine; ha1 22:43 hydrocodone bitartrate (bulk); ha1 22:43 Iodine; ha1 22:43 propoxyphene napsylate; ha1 22:43 Tramadol HCl; ha1 - Home Meds: 22:43 Aspirin Oral [Active]; levothyroxine oral [Active]; ha1 - PMHx: 22:43 Hypertension; ESSENTIAL TREMORS; Hypothyroidism; ha1 - Immunization history:: Adult Immunizations unknown. - Family history:: not pertinent. - Social history:: Smoking status: unknown. - Hospitalizations: : No recent hospitalization is reported. ROS: 23:30 Constitutional: Positive for fever and chills Eyes: Negative for injury, pain, redness, rn and discharge, Cardiovascular: Negative for chest pain, palpitations, and edema, Respiratory: Positive for cough Abdomen/GI: Negative for abdominal pain, nausea, vomiting, diarrhea, and constipation, MS/Extremity: Negative for injury and deformity, Skin: Negative for injury, rash, and discoloration, Neuro: Positive for headache and generalized weakness Exam: 23:30 Constitutional: This is a well developed, well nourished patient who is awake, alert, rn and in no acute distress. Head/Face: Normocephalic, atraumatic. ENT: Dry mucous membranes Neck: Trachea midline, no thyromegaly or masses palpated, and no cervical lymphadenopathy. Supple, full range of motion without nuchal rigidity, or vertebral point tenderness. No Meningismus. Cardiovascular: Tachycardic, regular. No pulse deficits Respiratory: Mild tachypnea, no retractions or wheezing Abdomen/GI: Soft, nontender Skin: Warm, dry MS/ Extremity: Pulses equal, no cyanosis Neuro: Awake and alert, GCS 15 Vital Signs: 23:00 BP 141 / 79; Pulse 102; Resp 17; Temp 101; Pulse Ox 98% on R/A; Weight 89.81 kg; Height ha1 6 ft. 0 in. ; 12/22 00:15 BP 138 / 78; Pulse 90; Resp 20 S; Temp 99.2(O); Pulse Ox 96% on R/A; ha1 00:50 BP 127 / 67; Pulse 81; Resp 17 S; Temp 97.9(O); Pulse Ox 96% on R/A; ha1 02:00 BP 127 / 69; Pulse 73; Resp 18 S; Pulse Ox 95% on R/A; ha1 12/21 23:00 Body Mass Index 26.85 (89.81 kg, 182.88 cm) ha1 MDM: 12/21 22:41 Patient medically screened. rn 12/22 00:50 Differential diagnosis: viral Infection, bacterial infection, URI, bronchitis, rn pneumonia UTI. Data reviewed: vital signs, nurses notes, lab test result(s), radiologic studies, plain films, and as a result, I will admit patient. Consideration of Admission/Observation Patient was admitted/placed on observation. Escalation of care including admission/observation considered. Management of patient was discussed with the following: Hospitalist: . Independent interpretation of the following test(s) in the Emergency Department EKG: See my EKG interpretation above X-Ray: My interpretation is Chest x-ray images negative for pneumonia or pneumothorax per my interpretation. Counseling: I had a detailed discussion with the patient and/or guardian regarding the historical points, exam findings, and any diagnostic results supporting the discharge/admit diagnosis, lab results, radiology results, the need for further work-up and treatment in the hospital. Response to treatment: the patient's symptoms have mildly improved after treatment. ED course: Patient with COVID, no signs of COVID-pneumonia but only 2 days into it. Generalized weakness and unable to walk on his own as well as persistent tachypnea, will admit to hospitalist service.. 12/21 22:51 Order name: Blood Culture Adult (2) 12/21 22:51 Order name: CBC with Diff; Complete Time: 00:07 12/21 22:51 Order name: CMP; Complete Time: 00:30 12/21 22:51 Order name: Lactate w/ 2H reflex if indic.; Complete Time: 00:30 12/21 22:51 Order name: Protime (+inr); Complete Time: 00:07 12/21 22:51 Order name: Ptt, Activated; Complete Time: 00:07 12/21 22:51 Order name: Urinalysis w/ reflexes 12/21 22:51 Order name: COVID-19/FLU A+B/RSV; Complete Time: 00:39 12/21 22:51 Order name: Strep 12/21 23:47 Order name: Flu bp 12/21 23:47 Order name: RSV bp 12/22 00:07 Order name: Throat Culture [facility] 12/22 01:14 Order name: CBC with Automated Diff [facility] 12/22 01:14 Order name: CBC with Automated Diff [facility] 12/22 01:14 Order name: Comprehensive Metabolic Panel [facility] 12/22 01:14 Order name: Comprehensive Metabolic Panel [facility] 12/21 22:51 Order name: Chest Single View XRAY 12/21 22:51 Order name: EKG; Complete Time: 22:53 12/21 22:51 Order name: Accucheck; Complete Time: 00:32 12/21 22:51 Order name: Cardiac monitoring; Complete Time: 00:32 12/21 22:51 Order name: EKG - Nurse/Tech; Complete Time: 00:32 12/21 22:51 Order name: IV Saline Lock - Large Bore; Complete Time: 00:32 12/21 22:51 Order name: Labs collected and sent; Complete Time: 00:32 12/21 22:51 Order name: O2 Per Protocol; Complete Time: 00:32 rn 12/21 22:51 Order name: O2 Sat Monitoring; Complete Time: 00:32 rn 12/21 22:51 Order name: Vital Signs; Complete Time: 00:32 rn Administered Medications: 12/21 23:00 Drug: Acetaminophen PO 1000 mg PO once Route: PO; ha1 12/22 00:15 Follow up: Response: No adverse reaction; Temperature is decreased; Pain is decreased [facility] 00:20 Drug: NS 0.9% IV 500 ml IV at bolus once Route: IV; Rate: bolus; Site: right ha1 antecubital; 02:10 Follow up: Response: No adverse reaction; IV Status: Completed infusion; IV Intake: ha1 500ml Disposition Summary: 12/22/22 00:53 Hospitalization Ordered Notes: Hospitalization Status: Observation rn Provider: Raghav Perry rn Condition: Stable rn Problem: new rn Symptoms: are unchanged rn Bed/Room Type: Standard rn Location: Telemetry/MedSurg (observation)(12/22/22 02:30) cg Room Assignment: [facility](12/22/22 02:30) Diagnosis - SARS-associated coronavirus as the cause of diseases classified elsewhere rn - Muscle weakness (generalized) rn - Dyspnea, unspecified rn - Fever, unspecified rn Forms: - Medication Reconciliation Form rn - SBAR form rn - Leadership Thank You Letter rn Signatures: Dispatcher [employer] SHERYLMS Ramón Kaminski MD MD rn Garcia, Cindy, RN RN Vicki Chambers RN RN [facility] Corrections: (The following items were deleted from the chart) 00:12/21 23:47 SARS-COV-2 RT PCR+[id number].LAB.BRZ ordered. EDGA EDMS 12/22 00:57 00:53 Telemetry/MedSurg (observation) rn cg 00:57 00:53 rn cg 02:30 00:57 [facility] ER HOLD cg cg 02:30 00:57 ERHOLD- cg cg
[2022-12-22] MEDS ORDERED: ONDANSETRON 4 MG/2 ML VIAL IV PRN (01:05)
[2022-12-22] MEDS ORDERED: NA CHLORIDE 0.9% 1,000 ML IV SCH (02:00)
[2022-12-22] MEDS: ACETAMINOPHEN 325 MG TABLET PO PRN ×3 (03:21→18:34)
--- NOTE | 2022-12-22 03:51 | P.HP ---
Certification for Inpatient Patient admitted to: Inpatient With expected LOS: >2 Midnights Patient will require the following post-hospital care: None Practitioner: I am a practitioner with admitting privileges, knowledge of patient current condition, hospital course, and medical plan of care. Services: Services provided to patient in accordance with Admission requirements found in Title 42 Section 412.3 of the Code of Federal Regulations Patient History Date of Service: 12/22/22 Reason for admission: COVID-19 disease History of Present Illness: 68 male patient with medical history significant for hypertension, hyperlipidemia, restless leg syndrome, COPD who was brought to the ER with episode of fever cough and chills. He tested positive for COVID-19 disease and he was admitted for inpatient care. He denied overt episode of, nausea, vomiting, diarrhea. He denies abdominal pain. Imaging studies done in the emergency room was not overtly concerning for significant pulmonary pathology. Allergies acetaminophen [From Ultracet] Allergy (Verified 03/11/14 23:02) Itching codeine Allergy (Verified 03/11/14 23:02) Itching hydrocodone bitartrate [From [place]] Allergy (Verified 03/11/14 23:02) Itching iodine Allergy (Verified 03/12/14 00:07) Hives propoxyphene napsylate [From Darvocet-N] Allergy (Verified 03/11/14 23:02) Itching tramadol HCl [From Ultracet] Allergy (Verified 03/11/14 23:02) Itching Hydrocodone-Acetaminophen Allergy (Uncoded 03/12/14 00:06) Nausea/Vomiting iodine from seafood Allergy (Uncoded 11/18/14 14:55) Unknown Home Medications: Aspirin [Aspirin EC 81 MG] 81 mg PO DAILY 03/12/14 Gabapentin [Neurontin] 600 mg PO DAILY 03/12/14 Levothyroxine [Synthroid*] 112 mcg PO DAILY 03/12/14 Pramipexole Di-HCl [Mirapex] 0.5 mg PO DAILY 03/12/14 hydroCHLOROthiazide [Hydrodiuril*] 25 mg PO DAILY 03/12/14 lisinopriL [Prinivil*] 20 mg PO DAILY 03/12/14 Fluticasone/Salmeterol [Advair 250/50 Diskus*] 1 puff IH BID #1 disk 03/13/14 Naproxen [Naprosyn] 500 mg PO BID #30 tablet 03/13/14 Tiotropium [Spiriva Handihaler*] 1 sprays IH DAILY #30 inh 03/13/14 levoFLOXacin [Levaquin] 500 mg PO DAILY #7 tab 03/13/14 predniSONE [Deltasone*] 10 mg PO SEECOM #14 tab 03/13/14 - Past Medical/Surgical History Diabetic: No -: Tremors -: HTN -: cataract R. eye -: peptic ulcer repair -: Bi heel spur sx -: R. foot neuroma -: Lap tanisha. -: Back sx -: R. eye blindness -: R&L rotor cuff repair -: L. arm reconstruction - Social History Alcohol use: No CD- Drugs: No Caffeine use: No Review of Systems General: Fever, Malaise Eyes: Unremarkable ENT: Unremarkable Respiratory: Cough Cardiovascular: Unremarkable Gastrointestinal: Unremarkable Genitourinary: Unremarkable Musculoskeletal: Unremarkable Neurological: Unremarkable Physical Examination - Vital Signs Temperature: 99.4 F Blood Pressure: 127/69 Pulse: 73 Respirations: 18 - Physical Exam General: Alert HEENT: Atraumatic, Normocephalic Neck: Supple Respiratory: Normal air movement Cardiovascular: Regular rate/rhythm, Normal S1 S2 Gastrointestinal: Soft and benign Neurological: Normal speech - Studies Laboratory Data (last 24 hrs) 12/21/22 12/21/22 12/21/22 23:31 23:31 23:31 WBC 7.30 Hgb 14.5 Hct 43.5 Plt Count 242 PT 11.3 INR 1.03 APTT 34.9 Sodium 140 Potassium 3.8 BUN 17 Creatinine 1.23 Glucose 111 H Total Bilirubin 0.3 AST 26 ALT 26 Alkaline Phosphatase 96 Microbiology Data (last 24 hrs): 12/21/22 23:40 Throat Group A Streptococcus Rapid Screen - Final Assessment and Plan - Plan COVID-19 disease: Patient tested positive for COVID-19 disease We will start empiric therapy with vitamin C, vitamin C, vitamin D, zinc therapy. We will start Paxlovid therapy We will monitor oxygen saturation and started on inhalational therapy as needed As needed Tylenol be used for fever and pain management Hypertension: We will monitor vital signs per unit protocol and continue outpt antihypertensive medications for blood pressure control. Restless leg syndrome: We will continue pramipexole. Prophylaxis: Lovenox for DVT prophylaxis. CODE STATUS: Full code. Disposition: We will manage his COVID-19 disease and discharge him once he is deemed clinically stable. - Advance Directives Does patient have a Living Will: No Does patient have a Durable POA for Healthcare: No
[2022-12-22 04:17] VITALS: BMI 26.8
[2022-12-22 04:25] LABS: Urine Bacteria None Seen /HPF (<20); Urine Bilirubin NEGATIVE (Negative); Urine Blood Negative (Negative); Urine Clarity Clear (Clear); Urine Color Light-Yellow (Yellow); Urine Glucose NEGATIVE (Negative); Urine Mucus Slight /HPF (None Seen); Urine Protein NEGATIVE (Negative); Urine RBC <5 /HPF (None Seen); Urine Urobilinogen Normal (Normal)
[2022-12-22] MEDS ORDERED: ASCORBIC ACID 500 MG TABLET PO SCH (09:00)
[2022-12-22] MEDS ORDERED: ZINC SULFATE 220 MG CAP PO SCH (09:00)
[2022-12-22] MEDS: ENOXAPARIN 40 MG/0.4 ML SQ SCH (09:09)
[2022-12-22] MEDS: VITAMIN E 400 IU CAP PO SCH (09:09)
--- NOTE | 2022-12-22 10:12 | P.CNS ---
Date of Consult: 12/22/22 Reason for Consult: Positive for COVID Chief Complaint: COVID-19 disease History of Present Illness: Patient is 77 years of age has been depressed recently upon debridement of his which in October 22 really he has been complaining for the past couple of days feeling dizzy had a hurting shortness of breath fever worsening cough and it appeared in the emergency room tested positive for COVID or had any cardiopulmonary problems Allergies acetaminophen [From Ultracet] Allergy (Verified 03/11/14 23:02) Itching codeine Allergy (Verified 03/11/14 23:02) Itching hydrocodone bitartrate [From [place]] Allergy (Verified 03/11/14 23:02) Itching iodine Allergy (Verified 03/12/14 00:07) Hives propoxyphene napsylate [From Darvocet-N] Allergy (Verified 03/11/14 23:02) Itching tramadol HCl [From Ultracet] Allergy (Verified 03/11/14 23:02) Itching Hydrocodone-Acetaminophen Allergy (Uncoded 03/12/14 00:06) Nausea/Vomiting iodine from seafood Allergy (Uncoded 11/18/14 14:55) Unknown Home Medications: Aspirin [Aspirin EC 81 MG] 81 mg PO DAILY 03/12/14 Gabapentin [Neurontin] 600 mg PO DAILY 03/12/14 Levothyroxine [Synthroid*] 112 mcg PO DAILY 03/12/14 Pramipexole Di-HCl [Mirapex] 0.5 mg PO DAILY 03/12/14 hydroCHLOROthiazide [Hydrodiuril*] 25 mg PO DAILY 03/12/14 lisinopriL [Prinivil*] 20 mg PO DAILY 03/12/14 Fluticasone/Salmeterol [Advair 250/50 Diskus*] 1 puff IH BID #1 disk 03/13/14 Naproxen [Naprosyn] 500 mg PO BID #30 tablet 03/13/14 Tiotropium [Spiriva Handihaler*] 1 sprays IH DAILY #30 inh 03/13/14 levoFLOXacin [Levaquin] 500 mg PO DAILY #7 tab 03/13/14 predniSONE [Deltasone*] 10 mg PO SEECOM #14 tab 03/13/14 - Past Medical/Surgical History Diabetic: No -: Tremors -: HTN -: cataract R. eye -: peptic ulcer repair -: Bi heel spur sx -: R. foot neuroma -: Lap tanisha. -: Back sx -: R. eye blindness -: R&L rotor cuff repair -: L. arm reconstruction - Social History Smoking Status: Unknown if ever smoked Alcohol use: No CD- Drugs: No Caffeine use: No Place of Residence: Home Review of Systems 10-point ROS is otherwise unremarkable General: Weakness Respiratory: Cough, Shortness of Breath Physical Examination Temp Pulse Resp BP Pulse Ox 99.0 F 79 16 154/75 H 94 12/22/22 08:00 12/22/22 08:00 12/22/22 08:00 12/22/22 08:00 12/22/22 08:00 General: Alert, In no apparent distress, Oriented x3 Respiratory: Clear to auscultation bilaterally Cardiovascular: No edema, Regular rate/rhythm, Normal S1 S2 Gastrointestinal: Normal bowel sounds, Soft and benign Laboratory Data (last 24 hrs) 12/21/22 12/21/22 12/21/22 23:31 23:31 23:31 WBC 7.30 Hgb 14.5 Hct 43.5 Plt Count 242 PT 11.3 INR 1.03 APTT 34.9 Sodium 140 Potassium 3.8 BUN 17 Creatinine 1.23 Glucose 111 H Total Bilirubin 0.3 AST 26 ALT 26 Alkaline Phosphatase 96 - Problems (1) Coronavirus infection Current Visit: Yes Status: Acute Plan: Patient is 77 years of age admitted with a coronavirus infection he is cough fever shortness of breath labs are unremarkable oxygenation satisfactory vital signs all stable patient can be discharged home on low-dose Decadron and Lagevrio 800mb BID for 5days
[2022-12-22] MEDS: dexAMETHasone 4 MG TAB PO SCH ×2 (11:14→20:38)
--- NOTE | 2022-12-22 15:44 | EKG ---
Test Date: 2022-12-21 Test Time: 23:06:06 Turbine Mechanic: ALVARO MEASUREMENT RESULTS: Intervals: Rate: 102 NV: QRSD: 118 QT: 354 QTc: 461 Ione: P: NV: QRS: -42 T: 85 INTERPRETIVE STATEMENTS: Sinus tachycardia Left axis deviation Anteroseptal infarct, age undetermined Abnormal ECG Compared to ECG 11/18/2014 12:36:21 Myocardial infarct finding now present Electronically Signed On 12-22-22 15:42:05 CDT by Bruce Valdivia
[2022-12-22] MEDS: NIRMATRELVIR/RITONAVIR TABLET PO SCH ×2 (16:53→20:38)
--- NOTE | 2022-12-22 19:17 | RAD REPORT ---
EXAM DESCRIPTION: Chest Single View 12/21/2022 11:46 PM CDT CLINICAL HISTORY: 77 years, Male, Cough;Fever COMPARISON: None. FINDINGS: 1 x-ray views of the chest (portable) was obtained. No prior films are available for david rison. There is a battery of a neurostimulator within the left upper chest area. Leads tracking along the left neck area. The cardiomediastinal silhouette demonstrate to be within normal limits. The hea rt is normal in size. The thoracic aorta is unremarkable. The pulmonary vasculature is normal distrib ution. Mild elevation of the right hemidiaphragm. Costophrenic angles are sharp. No areas of consol idation or masses are seen. The rest of the soft tissue and bony structures demonstrate to be unremar kable. IMPRESSION: No acute cardiopulmonary disease is seen. Electronically signed by: Mac Beckford MD 12/21/2022 11:46 PM CDT Due to temporary technical issues with the PACS/Fluency reporting system, reports are being signed by the in house radiologists without review as a courtesy to insure prompt reporting. The interpreting radiologist is fully responsible for the content of the report.
[2022-12-22 22:20] VITALS: O2SAT 94
[2022-12-23] MEDS ORDERED: TRAZODONE 50 MG TABLET PO ONE (01:39)
[2022-12-23] MEDS ORDERED: GABAPENTIN 300 MG CAP PO ONE (01:41)
[2022-12-23 04:09] LABS: Albumin 2.8 g/dL (3.4-5.0); Bilirubin Total 0.3 mg/dL (0.2-1.0); Potassium 3.8 mEq/L (3.5-5.1); Protein, Total 6.4 g/dL (6.4-8.2)
[2022-12-23] MEDS ORDERED: LEVOTHYROXINE SOD 0.112 MG TAB PO SCH (07:30)
[2022-12-23] MEDS ORDERED: DULERA 100/5 (MOMETASONE/FORMOTEROL) INHALER IH SCH (08:00)
[2022-12-23] MEDS: dexAMETHasone 4 MG TAB PO SCH (08:55)
[2022-12-23] MEDS ORDERED: lisinopriL 20 MG TAB PO SCH (09:00)
[2022-12-23] MEDS ORDERED: HOME MED 1 EA UNK (Gabapentin [Neurontin] 600 MG Tablet) PO SCH (09:00)
[2022-12-23] MEDS ORDERED: ASPIRIN EC 81 MG TAB PO SCH (09:00)
[2022-12-23] MEDS ORDERED: PRAMIPEXOLE 0.25 MG TAB PO SCH (09:00)
[2022-12-23] MEDS ORDERED: hydroCHLOROthiazide 25 MG TAB PO SCH (09:00)
[2022-12-23] MEDS ORDERED: GABAPENTIN 300 MG CAP PO SCH (09:00)
[2022-12-23] MEDS: VITAMIN E 400 IU CAP PO SCH (09:00)
[2022-12-23] MEDS: ENOXAPARIN 40 MG/0.4 ML SQ SCH (09:00)
[2022-12-23 16:27] VITALS: BP 145/80; TEMP 97.5
--- NOTE | 2022-12-23 16:37 | P.DS ---
Admission Date: 12/22/22 Discharge Date: 12/23/22 Reason for Admission: COVID-19 disease Consultations: Pulmonology Brief History of Present Illness: 68 male patient with medical history significant for hypertension, hyperlipidemia, restless leg syndrome, COPD who was brought to the ER with episode of fever cough and chills. He tested positive for COVID-19 disease and he was admitted for inpatient care. He denied overt episode of, nausea, vomiting, diarrhea. He denies abdominal pain. Imaging studies done in the emergency room was not overtly concerning for significant pulmonary pathology Hospital Course: Problem list COVID-19 viral illness Hypertension Restless leg syndrome Mr. David was admitted to the hospital for COVID-19 viral illness with associated shortness of breath. He was treated with oral steroids, he did not have any oxygen requirement and is tolerating room air. He remained afebrile for the past 24 hours, he was also able to ambulate with physical therapy in his room without significant difficulty. Pulmonology initially recommended Lagevrio for treatment of his COVID-19 viral illness although the hospital did not carry this medication, for this reason he was given Paxlovid instead. He will also be given a prescription for Decadron 2 mg p.o. twice daily for 5 days. He is stable for discharge today to follow-up with his primary care doctor and p ulmonology in 1 week. <Bandar Mendoza - Last Filed: 12/23/22 16:33> Admission Date: 12/22/22 Discharge Date: 12/23/22 Hospital Course: He appears well clinically today. Spoke with Dr. Márquez, who cleared him for discharge with Paxlovid and dexamethasone. <Phu Wei - Last Filed: 12/23/22 19:28> Disposition: ROUTINE DISCHARGE Discharge Condition: GOOD Vital Signs/Physical Exam: Temp Pulse Resp BP Pulse Ox 97.5 F 65 14 145/80 H 95 12/23/22 16:25 12/23/22 16:25 12/23/22 16:25 12/23/22 16:25 12/23/22 16:25 General: Alert, In no apparent distress, Oriented x3 HEENT: Atraumatic, PERRLA, EOMI Neck: Supple, JVD not distended Respiratory: Clear to auscultation bilaterally, Normal air movement Cardiovascular: Regular rate/rhythm, Normal S1 S2 Gastrointestinal: Normal bowel sounds, No tenderness Musculoskeletal: No tenderness Integumentary: No rashes Neurological: Normal speech, Normal tone, Normal affect Laboratory Data at Discharge: WBC 7.30 thou/uL (4.3-10.9) 12/21/22 23:31 Hgb 14.5 g/dL (13.6-17.9) 12/21/22 23:31 Hct 43.5 % (39.6-49.0) 12/21/22 23:31 Plt Count 242 thou/uL (152-406) 12/21/22 23:31 PT 11.3 SECONDS (9.5-12.5) 12/21/22 23:31 INR 1.03 12/21/22 23:31 APTT 34.9 SECONDS (24.3-36.9) 12/21/22 23:31 Sodium 136 mEq/L (136-145) 12/23/22 02:45 Potassium 3.8 mEq/L (3.5-5.1) 12/23/22 02:45 BUN 16 mg/dL (7-18) 12/23/22 02:45 Creatinine 1.01 mg/dL (0.70-1.30) 12/23/22 02:45 Glucose 155 mg/dL (74-106) H 12/23/22 02:45 Total Bilirubin 0.3 mg/dL (0.2-1.0) 12/23/22 02:45 AST 20 U/L (15-37) 12/23/22 02:45 ALT 24 U/L (16-61) 12/23/22 02:45 Alkaline Phosphatase 78 U/L (45-117) 12/23/22 02:45 <Bandar Mendoza - Last Filed: 12/23/22 16:33> Vital Signs/Physical Exam: Temp Pulse Resp BP Pulse Ox 97.5 F 65 14 145/80 H 95 12/23/22 16:25 12/23/22 16:25 12/23/22 16:25 12/23/22 16:25 12/23/22 16:25 Laboratory Data at Discharge: WBC 7.30 thou/uL (4.3-10.9) 12/21/22 23:31 Hgb 14.5 g/dL (13.6-17.9) 12/21/22 23:31 Hct 43.5 % (39.6-49.0) 12/21/22 23:31 Plt Count 242 thou/uL (152-406) 12/21/22 23:31 PT 11.3 SECONDS (9.5-12.5) 12/21/22 23:31 INR 1.03 12/21/22 23:31 APTT 34.9 SECONDS (24.3-36.9) 12/21/22 23:31 Sodium 136 mEq/L (136-145) 12/23/22 02:45 Potassium 3.8 mEq/L (3.5-5.1) 12/23/22 02:45 BUN 16 mg/dL (7-18) 12/23/22 02:45 Creatinine 1.01 mg/dL (0.70-1.30) 12/23/22 02:45 Glucose 155 mg/dL (74-106) H 12/23/22 02:45 Total Bilirubin 0.3 mg/dL (0.2-1.0) 12/23/22 02:45 AST 20 U/L (15-37) 12/23/22 02:45 ALT 24 U/L (16-61) 12/23/22 02:45 Alkaline Phosphatase 78 U/L (45-117) 12/23/22 02:45 <Phu Wei - Last Filed: 12/23/22 19:28> Diet: AHA Time spent managing pt's care (in minutes): 25 <Bandar Mendoza - Last Filed: 12/23/22 16:33> <Phu Wei - Last Filed: 12/23/22 19:28> Home Medications: RX: Aspirin [Aspirin EC 81 MG] 81 mg PO DAILY 03/12/14 RX: Gabapentin [Neurontin] 600 mg PO DAILY 03/12/14 RX: Levothyroxine [Synthroid*] 112 mcg PO DAILY 03/12/14 RX: Pramipexole Di-HCl [Mirapex] 0.5 mg PO DAILY 03/12/14 RX: hydroCHLOROthiazide [Hydrodiuril*] 25 mg PO DAILY 03/12/14 RX: lisinopriL [Prinivil*] 20 mg PO DAILY 03/12/14 RX: Fluticasone/Salmeterol [Advair 250/50 Diskus*] 1 puff IH BID #1 disk 03/13/14 RX: Nirmatrelvir/Ritonavir [Paxlovid 2X150 mg-100 mg (Eua)] 150 mg PO BID #10 12/23/22 RX: dexAMETHasone [Decadron*] 2 mg PO BID 5 Days #10 tab 12/23/22 New Medications: RX: dexAMETHasone [Decadron*] 2 mg PO BID 5 Days #10 tab RX: Nirmatrelvir/Ritonavir [Paxlovid 2X150 mg-100 mg (Eua)] 150 mg PO BID #10 Physician Discharge Instructions: Please follow up with your primary care doctor in 1 week as well as Dr[address] Márquez with Pulmonology in one week. Also observe isolation precautions/wear a mask. Followup: Unknown,U [Primary Care Provider] - 1 Week Obey Márquez MD [ACTIVE - CAN ADMIT] - 1 Week
== END 2022-12-23 18:00 | disposition home or self-care (01) | DRG 179 ==
LOC: ER 22:34 → ERHOLD 12-22 01:06 → 2ND 12-22 02:40
PROVIDERS: ADMIT Internal Medicine Nephrology; ATTEND Internal Medicine
DX: U07.1 COVID-19 (principal); I10 Essential (primary) hypertension; G25.0 Essential tremor; E03.9 Hypothyroidism, unspecified; E78.5 Hyperlipidemia, unspecified; G25.81 Restless legs syndrome; H26.9 Unspecified cataract; Z90.49 Acquired absence of other specified parts of digestive tract; H54.7 Unspecified visual loss
CPT/HCPCS: 0241U; 36415; 71045; 80053; 81001; 83605; 85025; 85610; 85730; 87040; 87070; 87081; 93005; 94010; 96360; 96361; 97116; 97161; 97530; 99285; J1650; J3535; J7030; J7040; J8540